=== PATIENT | male | born 1945 | race Caucasian/White ===

== ENCOUNTER 2023-06-15 17:15 | Inpatient (IN) ==
--- NOTE | 2023-06-15 18:00 | ED Triage Note ---
Date of Service June 15, 2023 Provider in Triage Author: Sabi Zhao History of Present Illness This patient was briefly evaluated while in triage. An abbreviated physical exam was performed. This patient is a 78-year-old Male who presents to the ED for evaluation of lumbar pain radiating into BLE. States surgical procedure for pilonidal cyst. Reports pain began shortly after surgery and has no hx of lumbar issues. Reports no saddle anesthesia, no loss of bowel or bladder. Physical Exam Initial orders for labs and / or imaging were placed and patient was placed in the waiting area until a bed is available. Please see further documentation for the full ED course.
[2023-06-15] MEDS: LIDOCAINE 5% 1 PATCH TD STA (18:11)
[2023-06-15] MEDS: KETOROLAC TROMETHAMINE 60 MG/2 ML VIAL IM STA (18:11)
[2023-06-15 18:51] LABS: Basophils # (auto) 0.03 K/uL (0.00-0.20); Basophils % (auto) 0.3 %; Eosinophils # (auto) 0.08 K/uL (0.00-0.50); Eosinophils % (auto) 0.9 %; Hematocrit (blood only) 35.4 % (42.0-52.0); Hemoglobin 11.2 g/dl (14.0-18.0); Immature Granulocytes # (auto) 0.05 K/uL (0.01-0.20); Immature Granulocytes % (auto) 0.5 %; Lymphocytes % (auto) 9.6 %; Mean Corpuscular Hemoglobin 28.4 pg (25.0-34.0); Mean Corpuscular Hgb Conc 31.6 g/dL (32.0-36.0); Mean Corpuscular Volume 89.6 fL (80.0-100.0); Mean Platelet Volume 8.7 fL (9.4-12.4); Monocytes # (auto) 0.91 K/uL (0.11-0.59); Monocytes % (auto) 9.7 %; Neutrophils # (auto) 7.39 K/uL (1.40-6.50); Platelet Count 250 K/uL (130-400); RDW Coefficient of Variation 16.1 % (11.5-14.5); RDW Standard Deviation 52.5 fL (36.4-46.3); Red Blood Count 3.95 M/uL (4.70-6.10); White Blood Count 9.36 K/ul (4.8-10.8)
[2023-06-15 19:05] LABS: Alanine Aminotransferase 9 U/L (7-52); Albumin Globulin Ratio 1.2 (0.9-2); Albumin Level 3.9 gm/dl (3.4-5.0); Alkaline Phosphatase 70 U/L (34-104); Anion Gap 7 (3-11); Aspartate Aminotransferase 21 U/L (13-39); BUN Creatinine Ratio 27.5 (10-20); Blood Urea Nitrogen 22 mg/dl (6-23); Calcium 9.4 mg/dl (8.6-10.3); Carbon Dioxide 29 mmol/L (21-32); Chloride 102 mmol/L (98-107); Est GFR (African American) 99.2 ml/min; Est GFR (Non-African American) 85.6 ml/min; Globulin 3.2 gm/dl (2.5-4.0); Glucose 96 mg/dl (70-99(Fasting)); Potassium 4.1 mmol/L (3.5-5.1); Sodium 138 mmol/L (136-145); Total Protein 7.1 gm/dl (6.0-8.3)
--- NOTE | 2023-06-15 19:07 | Emergency Department Note ---
History of Present Illness General Chief complaint: Back Injury/Pain Stated complaint: BACK PAIN Time Seen by Provider: 06/15/23 19:07 History of Present Illness Maximum Pain Intensity: 7 NAME: JUANITA SHELTON AGE: 78 SEX: M : 1945 ARRIVES VIA: Walk-In INFORMANT: Patient ED PROVIDER(S): DEBBY Epstein, Lucie Sewell MD The patient is a 78-year-old male who arrives to the emergency department for lumbar pain with radiation into his bilateral lower extremities. He reports in April he had a surgical procedure to remove a pilonidal cyst. He states since that time he has had significant pain and tenderness in the area. He reports he visited his surgeon to discuss the pain, and he assured him it was not due to the procedure. The patient denies any fevers, saddle anesthesia, loss of bowel or bladder, or fever. Home Medications Medication Instructions Recorded Confirmed Type ascorbic acid (vitamin C) 500 mg 500 mg PO QAM 03/03/23 06/15/23 History chewable tablet (Vitamin C) aspirin 81 mg tablet 81 mg PO QAM 03/03/23 06/15/23 History calcium phosphate 250 mg-vitamin 1 tab PO BID 03/03/23 06/15/23 History D3 10 mcg (400 unit) chewable tablet (Caltrate Gummy Bites) diclofenac sodium 75 mg 75 mg PO QAM 03/03/23 06/15/23 History tablet,delayed release ezetimibe 10 mg tablet (Zetia) 10 mg PO QAM 03/03/23 06/15/23 History metoprolol tartrate 37.5 mg tablet 37.5 mg PO BID 03/03/23 06/15/23 History mirabegron 50 mg tablet,extended 50 mg PO QAM 03/03/23 06/15/23 History release 24 hr (Myrbetriq) rosuvastatin 40 mg tablet 40 mg PO HS 03/03/23 06/15/23 History tamsulosin 0.4 mg capsule 0.4 mg PO QAM 03/03/23 06/15/23 History duloxetine 30 mg capsule,delayed 30 mg PO QAM 04/09/23 06/15/23 History release (Cymbalta) sodium chloride 0.65 % nasal spray 2 spray intranasal BID PRN 04/09/23 06/15/23 History aerosol (Saline Nasal) Congestion Allergies Allergy/AdvReac Type Severity Reaction Status Date / Time Penicillins Allergy Mild Rash Verified 06/15/23 22:14 Sulfa (Sulfonamide Allergy Mild Rash Verified 06/15/23 22:14 Antibiotics) clindamycin AdvReac Mild upset Verified 06/15/23 22:14 stomach Past Med/Surg History Medical History CAD (coronary artery disease) s/p CABG x2 (2021) Aortic stenosis Echo 01/2022: Mild aortic stenosis Arthritis History of prostate cancer 2017, radiation with seeds implants Low iron Pulmonary embolism 2011- fell hiking in [place], blood clot developed postop surgery to repair fracture, blood thinners discontinued (was on for short period of time) Hypertension Hyperlipidemia History of COVID-19 Dx 03/03/23 ([place])- cough > resolved Sleep apnea No device Surgical History History of anesthesia reaction slow to wake up History of excision of pilonidal cyst History of carpal tunnel release R/L History of total knee replacement Right History of surgery on lower extremity Right fib fracture repair (+ hardware) H/O prostate biopsy History of colonoscopy History of cataract surgery R/L History of coronary artery bypass graft CABG x2 (2021) Family History Other No family history of adverse response to anesthesia Social History Smoking Status: Former smoker Tobacco Type: Cigarettes Smoking End Date: 1972; Second Hand Exposure: Yes (both parents); Do You Dip or Chew Tobacco: No; Hx Alcohol Use: Yes Alcohol type: wine Hx Substance Use: No Preferred Language: Citizen Of [place] Communication Ability: Effective Gear Design 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 Required: No Beliefs That Will Affect Care: None Current Living Situation: Spouse Feels Safe at Home: Yes Safety Concerns: Feels Safe At This Time Assistive Devices: Crutches, Glasses and Walker Assistive Devices Comment: reading glasses Physical Exam Vital Signs Vital Signs - 24 hr 06/15/23 17:58 Temperature 36.9 C Temperature Source Temporal Artery Scan Pulse Rate 64 Respiratory Rate 18 Respiratory Effort / Characteristics Non-Labored Spontaneous Respiratory Depth Normal Respiratory Pattern Regular Blood Pressure 113/71 Blood Pressure Mean 85 Blood Pressure Position Sitting Pulse Oximetry 98 Oxygen Delivery Method Room Air Sepsis Recent Fever Within 48 Hours No Sepsis New/Unexplained Change in Mental Status N/A Sepsis Action Taken by Nursing No Action Required VITALS: Vitals are noted on the nurse's note and reviewed by myself. Vital signs stable. GENERAL: 78-year-old male, in mild distress, nondiaphoretic, well-developed well-nourished. SKIN: The skin was without rashes, erythema, edema, or bruising. There is a 3cm x 3cm decubitus ulceration from a pilonidal cyst removal with surrounding cellulitis. Severe TTP. HEAD: Normocephalic atraumatic. HEART: Regular rate and rhythm without murmurs gallops or rubs. LUNGS: Clear to auscultation bilaterally without wheezes, rales or rhonchi. No retractions or accessory muscle use. MUSCULOSKELETAL: Tenderness to palpation lumbar spinous process. Pain with flexion and extension, and rotation. No numbness or tingling in his extremities. NEURO: Patient was alert and oriented to person place and time. No focal neurological deficits. Course Administered Medications Acetaminophen (Acetaminophen 325 Mg Tab) 650 mg PO Q4H PRN PRN Reason: pain/fever Stop: 07/16/23 01:47 Last Admin: 06/16/23 02:51 Dose: 650 mg Documented By: GHISLAINE Ascorbic Acid (Ascorbic Acid 500 Mg Tab) 500 mg PO [facility] Stop: 07/16/23 08:59 Last Admin: 06/16/23 09:39 Dose: 500 mg Documented By: YURI Aspirin (Aspirin 81 Mg Ectab) 81 mg PO [facility] Stop: 07/16/23 08:59 Last Admin: 06/16/23 09:39 Dose: 81 mg Documented By: YURI Calcium/Vitamin D (Calcium 600mg + Vit D 400 Iu Tab) 1 tab PO BID [facility] Stop: 07/16/23 08:59 Last Admin: 06/16/23 20:41 Dose: 1 tab Documented By: Admin: 06/16/23 09:40 Dose: 1 tab Documented By: YURI Duloxetine HCl (Duloxetine Hcl 30 Mg Cap) 30 mg PO [facility] Stop: 07/16/23 08:59 Last Admin: 06/16/23 09:40 Dose: 30 mg Documented By: YURI Ezetimibe (Ezetimibe 10 Mg Tab) 10 mg PO HS [facility] Stop: 07/16/23 20:59 Last Admin: 06/16/23 20:39 Dose: 10 mg Documented By: PLF Enoxaparin Sodium (Enoxaparin Inj 40 Mg/0.4 Ml Syr) 40 mg SQ Q24H [facility]ILDA Stop: 07/16/23 08:59 Last Admin: 06/16/23 09:48 Dose: 40 mg Documented By: MAP Hydromorphone HCl (Hydromorphone Inj 0.5 Mg/0.5 Ml Syr) 0.5 mg IV Q4H PRN PRN Reason: Pain Stop: 06/30/23 04:51 Last Admin: 06/16/23 20:09 Dose: 0.5 mg Documented By: Admin: 06/16/23 11:19 Dose: 0.5 mg Documented By: Admin: 06/16/23 05:04 Dose: 0.5 mg Documented By: PLF Metoprolol Tartrate (Metoprolol Tartrate 25 Mg Tab) 37.5 mg PO BID [facility] Stop: 07/16/23 08:59 Last Admin: 06/16/23 20:40 Dose: 37.5 mg Documented By: Admin: 06/16/23 09:40 Dose: 37.5 mg Documented By: YURI Rosuvastatin Calcium (Rosuvastatin Calcium 20 Mg Tab) 40 mg PO [facility] Stop: 07/16/23 20:59 Last Admin: 06/16/23 20:40 Dose: 40 mg Documented By: PLF Tamsulosin HCl (Tamsulosin Hcl 0.4 Mg Cap) 0.4 mg PO [facility] Stop: 07/16/23 20:59 Last Admin: 06/16/23 20:40 Dose: 0.4 mg Documented By: PLF Vibegron (Vibegron 75 Mg Tab) 75 mg PO DAILY [facility] Stop: 07/16/23 08:59 Last Admin: 06/16/23 09:41 Dose: 75 mg Documented By: YURI Discontinued Medications Ezetimibe (Ezetimibe 10 Mg Tab) 10 mg PO QAM [facility] Stop: 07/16/23 08:59 Last Admin: 06/16/23 10:55 Dose: Not Given Documented By: MAP Gadobutrol (Gadobutrol 65ml Vial) 9.5 ml IV ONCE ONE Stop: 06/16/23 13:40 Last Admin: 06/16/23 13:40 Dose: 9.5 ml Documented By: ENIO Ceftriaxone Sodium (Rocephin) 2,000 mg in 50 mls @ 100 mls/hr IV NOW STA Stop: 06/15/23 22:21 Last Infusion: 06/15/23 23:13 Dose: Infused Documented By: Admin: 06/15/23 22:39 Dose: 100 mls/hr Documented By: KURTIS Vancomycin HCl 2,750 mg/ (Sodium Chloride) 555 mls @ 200 mls/hr IV NOW ONE Stop: 06/16/23 00:24 Last Infusion: 06/16/23 03:23 Dose: Infused Documented By: Admin: 06/15/23 22:46 Dose: 200 mls/hr Documented By: KURTIS Ertapenem 1,000 mg/ Syringe 10 mls @ 2 mls/min IV Q24H HILDA Stop: 06/23/23 02:59 Last Admin: 06/16/23 04:51 Dose: 2 mls/min Documented By: GHISLAINE Sodium Chloride (Nss) 1,000 mls @ 75 mls/hr IV .[id number] HILDA Stop: 06/16/23 15:07 Last Infusion: 06/16/23 15:53 Dose: Infused Documented By: Admin: 06/16/23 04:52 Dose: 75 mls/hr Documented By: GHISLAINE Ioversol (Optiray 320 500ml) 80 ml IV ONCE ONE Stop: 06/15/23 19:32 Last Admin: 06/15/23 19:32 Dose: 80 ml Documented By: AVI Ioversol (Optiray 320 500ml) 82 ml IV ONCE ONE Stop: 06/15/23 21:13 Last Admin: 06/15/23 21:12 Dose: 82 ml Documented By: AVI Ketorolac Tromethamine (Ketorolac Tromethamine 60 Mg/2 Ml Vial) 30 mg IM NOW STA Stop: 06/15/23 18:03 Last Admin: 06/15/23 18:11 Dose: 30 mg Documented By: KAILA Lidocaine (Lidocaine 5% 1 Patch) 1 patch TD NOW STA Stop: 06/15/23 18:03 Last Admin: 06/15/23 18:11 Dose: 1 patch Documented By: KAILA Tamsulosin HCl (Tamsulosin Hcl 0.4 Mg Cap) [facility] Stop: 07/16/23 08:59 Last Admin: 06/16/23 10:55 Dose: Not Given Documented By: MAP Medical Decision Making Differential Diagnosis Musculoskeletal, disc herniation, fracture, metastatic disease, cord compression, discitis, sciatica, cauda equina, infection, aortic disease, renal colic, gastrointestinal, as well as other pathologies. Medical Records Attestation: I reviewed the patient's medical records. Home Medications Current Medication List: was personally reviewed by me Laboratory Data Attestation: I reviewed the patient's lab results. no leukocytosis, hemoglobin 11.2, hematocrit 35.4, no electrolyte abnormalities, 06/16/23 05:27 06/16/23 05:27 Lab Results 06/15/23 06/15/23 Range/Units 18:27 22:37 WBC 9.36 (4.8-10.8) K/ul RBC 3.95 L (4.70-6.10) M/uL Hgb 11.2 L (14.0-18.0) g/dl Hct 35.4 L (42.0-52.0) % MCV 89.6 (80.0-100.0) fL MCH 28.4 (25.0-34.0) pg MCHC 31.6 L (32.0-36.0) g/dL RDW Std Deviation 52.5 H (36.4-46.3) fL RDW Coeff of [place] 16.1 H (11.5-14.5) % Plt Count 250 (130-400) K/uL MPV 8.7 L (9.4-12.4) fL Immature Gran % (Auto) 0.5 % Neut % (Auto) 79.0 % Lymph % (Auto) 9.6 % [place] % (Auto) 9.7 % Eos % (Auto) 0.9 % Baso % (Auto) 0.3 % Neut # (Auto) 7.39 H (1.40-6.50) K/uL Lymph # (Auto) 0.90 L (1.20-3.40) K/uL [place] # (Auto) 0.91 H (0.11-0.59) K/uL Eos # (Auto) 0.08 (0.00-0.50) K/uL Baso # (Auto) 0.03 (0.00-0.20) K/uL Immature Gran # (Auto) 0.05 (0.01-0.20) K/uL Sodium 138 (136-145) mmol/L Potassium 4.1 (3.5-5.1) mmol/L Chloride 102 (98-107) mmol/L Carbon Dioxide 29 (21-32) mmol/L Anion Gap 7 (3-11) BUN 22 (6-23) mg/dl Creatinine 0.80 (0.6-1.4) mg/dl Est Cr Clr Drug Dosing Not Reportable Est GFR ( Amer) 99.2 ml/min Est GFR (Non-Af Amer) 85.6 ml/min BUN/Creatinine Ratio 27.5 H (10-20) Glucose 96 (70-99(Fasting)) mg/dl Lactate 1.0 (0.4-2.0) mmol/L Calcium 9.4 (8.6-10.3) mg/dl Total Bilirubin 1.0 (0.2-1.0) mg/dl AST 21 (13-39) U/L ALT 9 (7-52) U/L Alkaline Phosphatase 70 (34-104) U/L Total Protein 7.1 (6.0-8.3) gm/dl Albumin 3.9 (3.4-5.0) gm/dl Globulin 3.2 (2.5-4.0) gm/dl Albumin/Globulin Ratio 1.2 (0.9-2) Imaging Data Radiologist's Impression: Lumbar Spine CT 06/15/23 18:06 Exam(s): CT L SPINE With Contrast IV Amt: 80 ml optiray 320 EXAM: CT Lumbar Spine With Intravenous Contrast CLINICAL HISTORY: Reason for exam: TTP spinous process, radiation of pain. TECHNIQUE: Axial computed tomography images of the lumbar spine with intravenous contrast. Automated exposure control was utilized for the study. A dose lowering technique was utilized adhering to the principles of ALARA. CONTRAST: Patient received 80 ml optiray 320 of IV contrast COMPARISON: None. FINDINGS: Vertebrae: No lumbar spine fracture. Discs/spinal canal/neural foramina: Degenerative change in the sacroiliac joints. Left central/subarticular calcified disc protrusion at L1-L2 with caudal migration. Disc bulges with endplate osteophytes and facet arthrosis throughout the lumbar spine. No high-grade spinal canal stenosis. There are varying degrees of foraminal narrowing throughout the lumbar spine. Soft tissues: Nonspecific dorsal subcutaneous fat stranding overlying the visualized sacrum. Vasculature: Atherosclerotic calcifications in the abdominal aorta and branches. Stomach and bowel: Colonic diverticulosis. IMPRESSION: 1. No acute fracture or traumatic malalignment of the lumbar spine. 2. Nonspecific dorsal subcutaneous fat stranding overlying the visualized sacrum. This could potentially be seen in with a sacral fracture or contusion, incompletely evaluated on this examination. Consider evaluation with dedicated CT of the pelvis as clinically warranted. 3. Moderate to severe degenerative change of the lumbar spine. Consider evaluation with MRI as clinically warranted. Electronically signed by: Jayson Landeros MD 06/15/23 20:18 PM Blood Pressure Blood Pressure Findings: Normal blood pressure MDM Narrative The patient is a 78-year-old male who presents today with his as secondary historian for the above stated complaint. Initial breif assessment was performed in triage. Initial orders were placed for saline lock, cbc, cmp, and CT of lumbar spine w/IV contrast. Lab values proved to be unremarkable. The patient was eventually placed in D4B where a formal evaluation was performed. Upon further examination, the patient has a 3cm x 3cm decubitus ulcer with surrounding cellulitis from a surgical removal of a pilonidal cyst. The patient expresses severe pain when the wound edges are palpated. CT imaging of the lumbar spine showed fat stranding over the sacrum which could indicate a sacral fracture or deeper infection. CT of the pelvis with IV contrast was recommended and performed. This imaging showe associated erosion of the sacrum concerning for osteomyelitis. Stat Rad contacted me for a critical read, we discussed the need for an MRI of the pelvis to show the extent of the infection. At this time, I contacted case mangement to discuss patient admission. Dr. Camacho of [facility] agreed to take the patient and provide a further workup as well as IV antibiotics. I placed initial orders for ceftriaxone and vancomycin. At this time, Dr. Camacho took over care of the patient. The patient's case was discussed with Dr. Sewell, who agreed with my evaluation and treatment plan. Impression & Plan Sacral osteomyelitis Discharge Plan Visit Data Chief Complaint: Back Injury/Pain Stated Complaint: BACK PAIN ED Provider: Lucie Sewell ED Midlevel Provider: Sabi Zhao Discharge Problem: Sacral osteomyelitis Patient Disposition: Admitted As Inpatient Discharge Instructions Interventions: ED Discharge Assessment Last Done: 06/16/23 00:54
[2023-06-15] MEDS: OPTIRAY 320 500ml IV ONE ×2 (19:32→21:12)
--- NOTE | 2023-06-15 20:20 | CT Scan Report ---
Exam(s): CT L SPINE With Contrast IV Amt: 80 ml optiray 320 EXAM: CT Lumbar Spine With Intravenous Contrast CLINICAL HISTORY: Reason for exam: TTP spinous process, radiation of pain. TECHNIQUE: Axial computed tomography images of the lumbar spine with intravenous contrast. Automated exposure control was utilized for the study. A dose lowering technique was utilized adhering to the principles of ALARA. CONTRAST: Patient received 80 ml optiray 320 of IV contrast COMPARISON: None. FINDINGS: Vertebrae: No lumbar spine fracture. Discs/spinal canal/neural foramina: Degenerative change in the sacroiliac joints. Left central/subarticular calcified disc protrusion at L1-L2 with caudal migration. Disc bulges with endplate osteophytes and facet arthrosis throughout the lumbar spine. No high-grade spinal canal stenosis. There are varying degrees of foraminal narrowing throughout the lumbar spine. Soft tissues: Nonspecific dorsal subcutaneous fat stranding overlying the visualized sacrum. Vasculature: Atherosclerotic calcifications in the abdominal aorta and branches. Stomach and bowel: Colonic diverticulosis. IMPRESSION: 1. No acute fracture or traumatic malalignment of the lumbar spine. 2. Nonspecific dorsal subcutaneous fat stranding overlying the visualized sacrum. This could potentially be seen in with a sacral fracture or contusion, incompletely evaluated on this examination. Consider evaluation with dedicated CT of the pelvis as clinically warranted. 3. Moderate to severe degenerative change of the lumbar spine. Consider evaluation with MRI as clinically warranted. Electronically signed by: Jayson Landeros MD 06/15/23 20:18 PM
--- NOTE | 2023-06-15 21:37 | CT Scan Report ---
Exam(s): CT PELVIS With Contrast IV Amt: 82 ml optiray 320 EXAM: CT Pelvis With Intravenous Contrast CLINICAL HISTORY: Reason for exam: r/o fracture. TECHNIQUE: Axial computed tomography images of the pelvis with intravenous contrast. CTDI is 27.51 mGy and DLP is 730.15 mGy-cm. Automated exposure control was utilized for the study. A dose lowering technique was utilized adhering to the principles of ALARA. CONTRAST: Patient received 82 ml optiray 320 of IV contrast COMPARISON: CT lumbar spine 06/15/2023. FINDINGS: Bowel: Colonic diverticulosis. No obstruction. No mucosal thickening. Appendix: No findings to suggest acute appendicitis. Intraperitoneal space: Unremarkable. No free air. No significant fluid collection. Bladder: Unremarkable. No mass. Reproductive: Fiducials in the prostate gland. Bones/joints: See below. Soft tissues: There appears to be a sacral decubitus ulcer or potentially pilonidal cyst with associated subcutaneous fat stranding and skin thickening. There also appears to be erosion of the sacrum. Vasculature: Atherosclerotic calcification the abdominal aorta and branches. No lower abdominal aortic aneurysm. Lymph nodes: Unremarkable. No enlarged lymph nodes. IMPRESSION: 1. Findings may represent a sacral decubitus ulcer or pilonidal cyst with associated subcutaneous fat stranding and skin thickening concerning for cellulitis. There also appears to be associated erosion of the sacrum concerning for osteomyelitis. Recommend direct visualization. Consider evaluation with dedicated MRI of the sacrum as clinically warranted. 2. Colonic diverticulosis. Communications: Call Doctor Osteomyelitis (if unsuspected) Call Doctor Above results Electronically signed by: Jayson Landeros MD 06/15/23 21:35 PM
[2023-06-15] MEDS ORDERED: VANCOMYCIN CONSULT ACTIVE PRN (21:55)
[2023-06-15] MEDS: cefTRIAXone SODIUM 2,000 MG/50 ML BAG IV STA (22:39)
[2023-06-15] MEDS: VANCOMYCIN HCL 2,750 MG in SODIUM CHLORIDE 0.9% 500 ML IV ONE (22:46)
--- NOTE | 2023-06-15 23:36 | History & Physical Report ---
Date of Service June 15, 2023 Assessment & Plan (1) Sacral osteomyelitis: Plan: 78-year-old male with past medical history significant for prediabetes, hyperlipidemia, obstructive sleep apnea not using CPAP, mild aortic stenosis, CAD s/p CABG, history of prostate cancer, history of pulmonary embolism who presents with severe back pain and CAT scan showing possible sacral osteomyelitis. Patient had pilonidal cyst surgery on April 21, 2023. Started having low back pain end of April and radiating down to both legs constant pain moderate to severe in severity. He is having difficulty ambulating because of pain. Saw surgery in follow-up and was thought his current problem is not from the procedure. He is constipated. No bowel incontinence. Since his prostate surgery has some bladder issues controlled with medications. But lately is having more urgencies of the urine. Sensations intact. No fevers. No abdominal pain. No chest pain or shortness of breath. Has mild cough. Occasional runny nose. No sore throat. Vision is okay. Ap petite is okay. Hemodynamics are stable. Sacral osteomyelitis Sacral cellulitis Had pilonidal surgery on April 21, 2023 Severe back pain since end of April radiating to both legs. Difficulty ambulating. Open wounds in the sacral region CT scan showing sacral decubitus ulcers possible cellulitis and possible sacrum osteomyelitis Will do MRI scan of the sacrum and lumbar spine Pain control IV Vanco and Invanz ID consult and Ortho consult Close monitor Prediabetes Will follow HbA1c levels Obstructive sleep apnea Not using CPAP CAD s/p CABG On beta-emily, Zetia, aspirin and statin Hyperlipidemia On statin History of prostate cancer S/p brachytherapy and LHRH therapy On Flomax and Myrbetriq Follows with urology History of mild aortic stenosis DVT prophylaxis Lovenox Disposition Medical floor Full code History of Present Illness Chief Complaint: Back pain, possible sacral osteomyelitis Primary Care Provider: Renzo Camacho MD 78-year-old male with past medical history significant for prediabetes, hy perlipidemia, obstructive sleep apnea not using CPAP, mild aortic stenosis, CAD s/p CABG, history of prostate cancer, history of pulmonary embolism who presents with severe back pain and CAT scan showing possible sacral osteomyelitis. Patient had pilonidal cyst surgery on April 21, 2023. Started having low back pain end of April and radiating down to both legs constant pain moderate to severe in severity. He is having difficulty ambulating because of pain. Saw surgery in follow-up and was thought his current problem is not from the procedure. He is constipated. No bowel incontinence. Since his prostate surgery has some bladder issues controlled with medications. But lately is having more urgencies of the urine. Sensations intact. No fevers. No abdominal pain. No chest pain or shortness of breath. Has mild cough. Occasional runny nose. No sore throat. Vision is okay. Appetite is okay. Hemodynamics are stable. Past medical history. As mentioned above Past surgical history. Right ankle arthroscopy. Knee arthroscopy. CABG. Social history. . Quit smoking 1974. Alcohol glass of wine about once a month. No drug use. Family history. Father had alcoholism. Mother had heart failure. Sister had diabetes. Sister had heart failure. Maternal grandmother had diabetes. Allergies Allergy/AdvReac Type Severity Reaction Status Date / Time Penicillins Allergy Mild Rash Verified 06/15/23 22:14 Sulfa (Sulfonamide Allergy Mild Rash Verified 06/15/23 22:14 Antibiotics) clindamycin AdvReac Mild upset Verified 06/15/23 22:14 stomach Home Medications Medication Instructions Recorded Confirmed Type ascorbic acid (vitamin C) 500 mg 500 mg PO QAM 03/03/23 06/15/23 History chewable tablet (Vitamin C) aspirin 81 mg tablet 81 mg PO QAM 03/03/23 06/15/23 History calcium phosphate 250 mg-vitamin 1 tab PO BID 03/03/23 06/15/23 History D3 10 mcg (400 unit) chewable tablet (Caltrate Gummy Bites) diclofenac sodium 75 mg 75 mg PO QAM 03/03/23 06/15/23 History tablet,delayed release ezetimibe 10 mg tablet (Zetia) 10 mg PO QAM 03/03/23 06/15/23 History metoprolol tartrate 37.5 mg tablet 37.5 mg PO BID 03/03/23 06/15/23 History mirabegron 50 mg tablet,extended 50 mg PO QAM 03/03/23 06/15/23 History release 24 hr (Myrbetriq) rosuvastatin 40 mg tablet 40 mg PO HS 03/03/23 06/15/23 History tamsulosin 0.4 mg capsule 0.4 mg PO QAM 03/03/23 06/15/23 History duloxetine 30 mg capsule,delayed 30 mg PO QAM 04/09/23 06/15/23 History release (Cymbalta) sodium chloride 0.65 % nasal spray 2 spray intranasal BID PRN 04/09/23 06/15/23 History aerosol (Saline Nasal) Congestion Past Med/Surg History Medical History CAD (coronary artery disease) s/p CABG x2 (2021) Aortic stenosis Echo 01/2022: Mild aortic stenosis Arthritis History of prostate cancer 2017, radiation with seeds implants Low iron Pulmonary embolism 2011- fell hiking in [place], blood clot developed postop surgery to repair fracture, blood thinners discontinued (was on for short period of time) Hypertension Hyperlipidemia History of COVID-19 Dx 03/03/23 ([place])- cough > resolved Sleep apnea No device Surgical History History of anesthesia reaction slow to wake up History of excision of pilonidal cyst History of carpal tunnel release R/L History of total knee replacement Right History of surgery on lower extremity Right fib fracture repair (+ hardware) H/O prostate biopsy History of colonoscopy History of cataract surgery R/L History of coronary artery bypass graft CABG x2 (2021) Family History Other No family history of adverse response to anesthesia Social History Smoking Status: Former smoker Tobacco Type: Cigarettes Smoking End Date: 1972; Second Hand Exposure: Yes (both parents); Do You Dip or Chew Tobacco: No; Hx Alcohol Use: Yes Alcohol type: wine Hx Substance Use: No Preferred Language: Martiniquais Communication Ability: Effective Industrial Arts Teacher Required: No Beliefs That Will Affect Care: None Current Living Situation: Spouse Feels Safe at Home: Yes Safety Concerns: Feels Safe At This Time Assistive Devices: Other Assistive Devices Comment: reading glasses Review of Systems Review of Systems: All systems reviewed & are unremarkable except as noted in HPI & below Physical Exam Physical Exam: General-Not in distress Head- atraumatic Eyes- PERRL. ENT- oropharynx clear Neck- supple, no JVD. Lungs- clear to auscultation no wheezing or crackles. Heart- regular rhythm; esm in aortic area., no gallop. Abdomen- normal bowel sounds, soft, nontender, no distension. Extremities- no pretibial edema, no erythema seen. Neuro- alert, oriented x 3; PERRL, no facial palsy; no dysarthria; moves extremities. Skin- sacral open wound with mild drainage seen Results & Data Results & Data Vital Signs (Past 12 Hours) Vital Signs Temp Pulse Pulse Resp BP BP Pulse Ox 06/15/23 21:20 85 18 142/59 H 94 06/15/23 17:58 36.9 C 64 18 113/71 98 O2 Del Method 06/15/23 21:20 Room Air 06/15/23 17:58 Room Air Diagnostic Findings Laboratory Results WBC 9.36 K/ul (4.8-10.8) 06/15/23 18: RBC 3.95 M/uL (4.70-6.10) L 06/15/23 18: Hgb 11.2 g/dl (14.0-18.0) L 06/15/23 18: Hct 35.4 % (42.0-52.0) L 06/15/23 18: MCV 89.6 fL (80.0-100.0) 06/15/23 18: MCH 28.4 pg (25.0-34.0) 06/15/23 18: MCHC 31.6 g/dL (32.0-36.0) L 06/15/23 18: RDW Std Deviation 52.5 fL (36.4-46.3) H 06/15/23 18: RDW Coeff of [place] 16.1 % (11.5-14.5) H 06/15/23 18: Plt Count 250 K/uL (130-400) 06/15/23 18: MPV 8.7 fL (9.4-12.4) L 06/15/23 18: Immature Gran % (Auto) 0.5 % 06/15/23 18: Neut % (Auto) 79.0 % 06/15/23 18: Lymph % (Auto) 9.6 % 06/15/23 18: [place] % (Auto) 9.7 % 06/15/23 18:27 Eos % (Auto) 0.9 % 06/15/23 18: Baso % (Auto) 0.3 % 06/15/23 18: Neut # (Auto) 7.39 K/uL (1.40-6.50) H 06/15/23 18: Lymph # (Auto) 0.90 K/uL (1.20-3.40) L 06/15/23 18: [place] # (Auto) 0.91 K/uL (0.11-0.59) H 06/15/23 18: Eos # (Auto) 0.08 K/uL (0.00-0.50) 06/15/23 18: Baso # (Auto) 0.03 K/uL (0.00-0.20) 06/15/23 18: Immature Gran # (Auto) 0.05 K/uL (0.01-0.20) 06/15/23 18: Sodium 138 mmol/L (136-145) 06/15/23 18: Potassium 4.1 mmol/L (3.5-5.1) 06/15/23 18: Chloride 102 mmol/L (98-107) 06/15/23 18: Carbon Dioxide 29 mmol/L (21-32) 06/15/23 18: Anion Gap 7 (3-11) 06/15/23 18: BUN 22 mg/dl (6-23) 06/15/23 18: Creatinine 0.80 mg/dl (0.6-1.4) 06/15/23 18: Est Cr Clr Drug Dosing Not Reportable 06/15/23 18: Est GFR ( Amer) 99.2 ml/min 06/15/23 18: Est GFR (Non-Af Amer) 85.6 ml/min 06/15/23 18: BUN/Creatinine Ratio 27.5 (10-20) H 06/15/23 18: Glucose 96 mg/dl (70-99(Fasting)) 06/15/23 18: Lactate 1.0 mmol/L (0.4-2.0) 06/15/23 22:37 Calcium 9.4 mg/dl (8.6-10.3) 06/15/23 18: Total Bilirubin 1.0 mg/dl (0.2-1.0) 06/15/23 18: AST 21 U/L (13-39) 06/15/23 18: ALT 9 U/L (7-52) 06/15/23 18: Alkaline Phosphatase 70 U/L (34-104) 06/15/23 18: Total Protein 7.1 gm/dl (6.0-8.3) 06/15/23 18: Albumin 3.9 gm/dl (3.4-5.0) 06/15/23 18: Globulin 3.2 gm/dl (2.5-4.0) 06/15/23 18: Albumin/Globulin Ratio 1.2 (0.9-2) 06/15/23 18: Impressions Lumbar Spine CT 06/15/23 18:06 Exam(s): CT L SPINE With Contrast IV Amt: 80 ml optiray 320 EXAM: CT Lumbar Spine With Intravenous Contrast CLINICAL HISTORY: Reason for exam: TTP spinous process, radiation of pain. TECHNIQUE: Axial computed tomography images of the lumbar spine with intravenous contrast. Automated exposure control was utilized for the study. A dose lowering technique was utilized adhering to the principles of ALARA. CONTRAST: Patient received 80 ml optiray 320 of IV contrast COMPARISON: None. FINDINGS: Vertebrae: No lumbar spine fracture. Discs/spinal canal/neural foramina: Degenerative change in the sacroiliac joints. Left central/subarticular calcified disc protrusion at L1-L2 with caudal migration. Disc bulges with endplate osteophytes and facet arthrosis throughout the lumbar spine. No high-grade spinal canal stenosis. There are varying degrees of foraminal narrowing throughout the lumbar spine. Soft tissues: Nonspecific dorsal subcutaneous fat stranding overlying the visualized sacrum. Vasculature: Atherosclerotic calcifications in the abdominal aorta and branches. Stomach and bowel: Colonic diverticulosis. IMPRESSION: 1. No acute fracture or traumatic malalignment of the lumbar spine. 2. Nonspecific dorsal subcutaneous fat stranding overlying the visualized sacrum. This could potentially be seen in with a sacral fracture or contusion, incompletely evaluated on this examination. Consider evaluation with dedicated CT of the pelvis as clinically warranted. 3. Moderate to severe degenerative change of the lumbar spine. Consider evaluation with MRI as clinically warranted. Electronically signed by: Jayson Landeros MD 06/15/23 20:[address] 06/15/23 20:46 CR Exam(s): CT PELVIS With Contrast IV Amt: 82 ml optiray 320 EXAM: CT Pelvis With Intravenous Contrast CLINICAL HISTORY: Reason for exam: r/o fracture. TECHNIQUE: Axial computed tomography images of the pelvis with intravenous contrast. CTDI is 27.51 mGy and DLP is 730.15 mGy-cm. Automated exposure control was utilized for the study. A dose lowering technique was utilized adhering to the principles of ALARA. CONTRAST: Patient received 82 ml optiray 320 of IV contrast COMPARISON: CT lumbar spine 06/15/2023. FINDINGS: Bowel: Colonic diverticulosis. No obstruction. No mucosal thickening. Appendix: No findings to suggest acute appendicitis. Intraperitoneal space: Unremarkable. No free air. No significant fluid collection. Bladder: Unremarkable. No mass. Reproductive: Fiducials in the prostate gland. Bones/joints: See below. Soft tissues: There appears to be a sacral decubitus ulcer or potentially pilonidal cyst with associated subcutaneous fat stranding and skin thickening. There also appears to be erosion of the sacrum. Vasculature: Atherosclerotic calcification the abdominal aorta and branches. No lower abdominal aortic aneurysm. Lymph nodes: Unremarkable. No enlarged lymph nodes. IMPRESSION: 1. Findings may represent a sacral decubitus ulcer or pilonidal cyst with associated subcutaneous fat stranding and skin thickening concerning for cellulitis. There also appears to be associated erosion of the sacrum concerning for osteomyelitis. Recommend direct visualization. Consider evaluation with dedicated MRI of the sacrum as clinically warranted. 2. Colonic diverticulosis. Communications: Call Doctor Osteomyelitis (if unsuspected) Call Doctor Above results Electronically signed by: Jayson Landeros MD 06/15/23 21:35 PM Code Status & VTE Plan VTE Prophylaxis Plan VTE Prophylaxis will be ordered: Yes
[2023-06-16] MEDS ORDERED: SODIUM CHLORIDE 0.65% NA SOLN 45 ML (OCEAN) PRN (01:48)
[2023-06-16] MEDS: ACETAMINOPHEN 325 MG TAB PO PRN (02:51)
--- OUTSIDE RECORDS SUMMARY | 2023-06-16 04:24 | External Medical Summary | Summary of Care ---
Author Name Unknown Organization [facility] Address [address] [place] [address] Phone [phone] Care Team Providers Care Air Battle Manager Name Role Phone Renzo Camacho MD Primary Care Provider + Reason for Visit * Reason Onset Date Comments Med Request 06/01/2023 Encounter Details Date Type Department Care Team (Late st Contact Info) Description 06/01/2023 Telephone General Internal Medicine [facility] [address] [place] [address] Renzo Camacho MD [address] [place] [address] Med Request Allergies Active Allergy Reactions Criticality Noted Date Comments Clindamycin Nausea/vomiting Low 10/21/2018 STOMACH BURNING AND ESOPHAGUS BURNING Tablets only. Stomach/esophageal burning Penicillins Hives Medium 11/22/2015 Pt developed hives, happened when he was 14 yrs Happened when he was 14 yrs Sulfamethoxazole-Trimeth oprim Hives Medium 12/29/2018 Pt developed hives, this happened when he was 14 years old This happened when he was 14 years old documented as of this encounter (statuses as of 06/01/2023) Medications Medication Sig Dispensed Refills Start Date End Date Status Aspirin 81 MG Oral Tablet Chewable Take 1 Tablet by mouth in the morning. 0 02/09/2022 Active Metoprolol Tartrate 37.5 MG Oral Tablet Take 37.5 mg by mouth in the morning and 37.5 mg before bedtime. 0 Active Diclofenac Sodium 75 MG Oral Tablet Delayed Release (Voltaren) Take 1 Tablet by mouth in the morning and 1 Tablet before bedtime. 90 Tablet 3 04/07/2023 Active Additional Information Patient taking differently:75 mg OralDaily(AM), Reported on 04/16/2023 Ezetimibe 10 MG Oral Tablet (Zetia)Indications: Mixed hyperlipidemia Take 1 Tablet by mouth in the morning. 90 Tablet 3 04/07/2023 Active Myrbetriq 50 MG Oral Tablet Extended Release 24 Hour (Mirabegron ER)Indications:Hist ory of prostate cancer Take 1 Tablet by mouth in the morning. 90 Tablet 3 04/07/2023 Active DULoxetine HCl 30 MG Oral Capsule Delayed Release Particles (Cymbalta)Indicatio ns:Polyarthralgia Take 1 Capsule by mouth in the morning. Do not cut, crush or chew. 30 Capsule 5 04/07/2023 Active Saline Nasal [place] 0.65 % Nasal Solution ([place] Nasal [place]) Administer 2 Sprays into each nostril as needed for Congestion. for nasal dryness or congestion 0 04/07/2023 Active Cephalexin 500 MG Oral Capsule (Keflex) Take 1 Capsule by mouth every 6 hours. 28 Capsule 0 04/29/2023 Active oxyCODONE-Acetamino phen 5-325 MG Oral Tablet (Percocet) Take 1 Tablet by mouth every 4 hours as needed for Pain, Moderate. 20 Tablet 0 04/29/2023 Active Rosuvastatin Calcium 40 MG Oral Tablet (Crestor) Take 1 Tablet by mouth at bedtime. 90 Tablet 3 05/06/2023 Active Tamsulosin HCl 0.4 MG Oral Capsule (Flomax) Take 1 Capsule by mouth in the morning. 90 Capsule 3 06/01/2023 Active Tamsulosin HCl 0.4 MG Oral Capsule (Flomax) Take 1 Capsule by mouth in the morning. 0 4 Discontinu ed(Refill) documented as of this encounter (statuses as of 06/01/2023) Active Problems Problem Noted Date Diagnosed Date Prediabetes 04/07/2023 Mild aortic stenosis 04/07/2023 Overview: Last echo 2021 Coronary artery disease invo lving [place] coronary artery of [place] heart without angina pectoris 04/07/2023 S/P CABG (coronary artery bypass graft) 04/07/20 23 History of prostate cancer 04/07/2023 Mixed hyperlipidemia 04/07/2023 OMID (obstructive sleep apnea) 04/07/2023 History of pulmonary embolism 04/07/2023 Overview: S/p surgery 2012 Post-nasal drip 04/07/2023 documented as of this encounter (statuses as of 06/01/2023) Resolved Problems Problem Noted Date Diagnosed Date Resolved Date HTN, goal below 130/80 04/07/202304/07 documented as of this encounter (statuses as of 06/01/2023) Immunizations Name Administration Dates Next Due COVID-19 mRNA, LNP-s, No Pre serve, 2-Dose Series (Moderna) 08/13/2021,07/30/2020,06/29/2020 COVID-19, mRNA, LNP-s, PF, B ooster, 100mcg/0.5mg (Moderna) 03/05/2021 Pneumococcal Conjugate Vacc, 13 Valent (Prevnar) 09/25/2014 Pneumococcal Polysaccharide PPV23 (Pneumovax) 04/07/2016 Season Influenza, Quad, PF, Adjuvanted, 65+ Yrs, IM (FLUAD) 01/23/2020 TDAP (age 10 and older)(Boostrix) 11/08/2021, Varicella Zoster Vaccine (Adult) 10/24/2014 Zoster Vaccine Recombinant (Shingrix) 09/27/2018 ,07/16/2018 documented as of this encounter Social History Tobacco Use Types Packs/Day Years Used Date Smoking Tobacco: Former Cigarettes Q uit: 1975 Smokeless Tobacco: Never Alcohol Use Standard Drinks/Week Comments Yes 0 (1 standard drink = 0.6 oz pure alcohol) a glass a wine about once a month PHQ-2 Answer Date Recorded PHQ Adult Total Score 0 04/07/2023 Sex and Gender Information Value Date Recorded Sex Assigned at Male 04/06/2023 2:46 PM EST Gender Identity Male 04/06/2023 2:46 PM EST Sexual Orientation Straight 04/06/2023 2: 46 PM EST Job Start Date Occupation Industry Not on file Not on file Not on file documented as of this encounter Miscellaneous Notes * Telephone Encounter - Sruthi Pendleton LPN - 06/01/2023 11:17 AM EST Did you pend patient's preferred pharmacy and medication before forwarding?yes Pharmacy: [facility] [id number] [place] [address] No prescriptions requested or ordered in this encounter Last Visit: 04/07/2023 (in office), Visit date not found (telemedicine) Next Visit: 10/08/2023 If no future appointments scheduled, and last appointment is greater than a year ago, please schedule patient for a follow-up appointment Last date the medication was ordered: 04/07/2023 Is this request for a controlled substance?No Urine Drug Screen:No results found for this or any previous visit. Patient Phone Numbers Labs: Lab Results Component Value Date/Time CREAT 0.9 04/08/2023 12:56 PM CREAT 0.84 02/24/2022 03:40 PM POTASSIUM 4.8 04/08/2023 12:56 PM POTASSIUM 4.5 02/24/2022 03:40 PM LDLCALC 58 12/17/2022 09:23 AM LDLDIRECT 66 04/10/2023 07:47 AM ALT 12 04/08/2023 12:56 PM ALT 12 02/28/2019 09:06 AM HGBA1C 5.7 (H) 04/08/2023 12:56 PM HGBA1C 5.7 (H) 12/17/2022 09:23 AM * Telephone Encounter - Oksana Copeland CPhT - 06/01/2023 10:29 AM EST Patient calling requesting the following medication below that is listed as "Historical". The following information was provided: Medication Name: Tamsulosin Strength: 0.4 MG Directions: 1 TAB DAILY Preferred Quantity: 90 DAY Previous Prescriber: Dr. Mccollum Urologist Preferred Pharmacy: [facility] [address] [place] [address] Medication Name: Metoprolol Strength: 37.5 MG Directions: 2 TABS DAILY Preferred Quantity: 90 DAY Previous Prescriber: Dr. Mccollum Preferred Pharmacy: [facility] [id number] [place] [address] Please review and approve if appropriate. Thank you, Oksana Copeland, [facility] 06/01/2023, 10:29 AM documented in this encounter Plan of Treatment Upcoming Encounters Date Type Department Care Team (Late st Contact Info) Description 06/03/2023 11:15 AM EST Office Visit General Surgery, [facility] [address] [facility] [place] [address] Lance Quarles MD [address] [facility] [place] [phone] 06/29/2023 4:00 PM EST Cardiac Studies Cardiac Studies, [facility] [address] [facility] [place] [address] 10/08/2023 1:00 PM EDT Office Visit General Internal Medicine [facility] [address] [facility] [place] [address] [facility] [address] 11/24/2023 8:00 AM EDT Office Visit Urology, [facility] [address] [facility] [place] [address] Markus Raymond MD [address] [address] 11/30/2023 2:00 PM EDT Office Visit Cardiology, [facility] [address] [facility] [place] [address] Carol Cruz CRNP [address] [facility] [place] [phone] Health Maintenance Due Date Last Done Comments COVID-19 Vaccine ( season) 2023 08/13/2021, 03/05/2021, 07/30/2020, Additional history exists Influenza Vaccine (FLU shot) (#1) 2023 01/23/2020 Depression Screening 04/07/2024 04/07/2023 HbA1c 04/08/2024 04/08/2023, 01/2023, 06/13/2022, Additional history exists COLONOSCOPY-EVERY 5 YRS AGES 18-100 04/17/2025 04/17/2020 DTaP,Tdap,and Td Vaccines (4 - Td or Tdap) 11/09/2031 11/08/2021, 03/15/2015, 03/01/2015 Pneumococcal Vaccine: 65+ Years Completed 04/07/2016, 09/25/2014 Zoster Vaccines Completed 09/27/2018, 12/2018, 10/24/2014 GARDASIL-HPV IMMUNIZATION SERIES Aged Out No longer eligible based on patient's age to complete this topic Hepatitis B Aged Out No longer eligi ble based on patient's age to complete this topic MENINGOCOCCAL (MENACTRA/MENVEO) Aged Out No longer eligible based on patient's age to complete this topic documented as of this encounter Medical Devices Not on filedocumented as of this encounter Care Teams Air Battle Manager Relationship Specialty Start Date End Date Renzo Camacho MD [address] [facility] [place] [address] PCP - General Internal Medicine 04/24/23 documented as of this encounter
--- OUTSIDE RECORDS SUMMARY | 2023-06-16 04:24 | External Medical Summary | Summary of Care ---
Author Name Unknown Organization [facility] Address [address] [place] [address] Phone [phone] Care Team Providers Care Roll Up Helper Name Role Phone Renzo Camacho MD Primary Care Provider + Reason for Visit * Reason Comments Post-Op 04/20/2023 pilonidal cyst Encounter Details Date Type Department Care Team (Late st Contact Info) Description 06/03/2023 11:15 AM EST Office Visit General Surgery, [facility] 132 [facility] [place] [address] Lance Quarles MD 132 [facility] [place] [address] Postop check* Allergies Active Allergy Reactions Criticality Noted Date [...] as of this encounter (statuses as of 06/03/2023) Medications Medication Sig Dispensed Refills Start Date [...] 30 Capsule 5 04/07/2023 Active Saline Nasal [place] 0.65 % Nasal Solution ([place] Nasal [place]) Administer 2 Sprays into each nostril as needed for Congestion. for nasal dryness or congestion 0 04/07/2023 Active Cephalexin 500 MG Oral Capsule (Keflex) Take 1 Capsule by mouth every 6 hours. 28 Capsule 0 04/29/2023 Active Rosuvastatin Calcium 40 MG Oral Tablet (Crestor) Take 1 Tablet by mouth at bedtime. 90 Tablet 3 05/06/2023 Active Tamsulosin HCl 0.4 MG Oral Capsule (Flomax) Take 1 Capsule by mouth in the morning. 90 Capsule 3 06/01/2023 Active oxyCODONE-Acetamino phen 5-325 MG Oral Tablet (Percocet) Take 1 Tablet by mouth every 4 hours as needed for Pain, Moderate. 20 Tablet 0 04/29/2023 4 Discontinu ed(End of Procedure) documented as of this encounter (statuses as of 06/03/2023) Active Problems Problem Noted Date Diagnosed Date Prediabetes 04/07/2023 Mild aortic stenosis 04/07/2023 Overview: Last echo 2021 Coronary artery disease invo lving [place] coronary artery of [place] heart without angina pectoris 04/07/2023 S/P CABG (coronary artery bypass graft) 04/07/20 23 History of prostate cancer 04/07/2023 Mixed hyperlipidemia 04/07/2023 OMID (obstructive sleep apnea) 04/07/2023 History of pulmonary embolism 04/07/2023 Overview: S/p surgery 2012 Post-nasal drip 04/07/2023 documented as of this encounter (statuses as of 06/03/2023) Resolved Problems Problem Noted Date Diagnosed Date Resolved Date HTN, goal below 130/80 04/07/202304/07 documented as of this encounter (statuses as of 06/03/2023) Immunizations Name Administration Dates Next Due COVID-19 [...] on file documented as of this encounter Progress Notes * Lance Quarles MD - 06/03/2023 11:18 AM EST Roe Kiser is s/p an excision of a pilonidal cyst on 04/20/2023. The patient is overall doing well. Pain is controlled with current analgesics. Fever has not been present. This patient has some wound drainage and has some wound erythema. The patient has no drains in place. PE: There were no vitals taken for this visit. General: alert, healthy, and no distress Incision site: healing well; dehiscence getting smaller; good granulation Assessment: Roe Kiser is doing well. All questions answered. Will begin packing dressings daily, all sutures removed. Plan: follow - up 4 weeks Lance Quarles MD 06/03/2023 11:25 AM documented in this encounter Nursing Notes * Aissatou Gaspar LPN - 06/03/2023 11:13 AM EST Chief Complaint Patient presents with Post-Op 04/20/2023 pilonidal cyst Patient states he had a lot of pain yesterday, not as much today, bearable. documented in this encounter Plan of Treatment Upcoming Encounters Date Type Department Care Team (Late st Contact Info) Description 06/29/2023 11:15 AM EST Office Visit General Surgery, [facility] [address] [address] Lance Quarles MD [address] [place] [address] 06/29/2023 4:00 PM EST Cardiac Studies Cardiac Studies, [facility] [address] [place] [address] 10/08/2023 1:00 PM EDT Office Visit General Internal Medicine [facility] [address] [place] [address] Renzo Camacho MD 200 [facility] [place] [address] 11/24/2023 8:00 AM EDT Office Visit Urology, [facility] 132 [facility] [place] [address] Markus Raymond MD 27 [facility] [address] [place] [address] 11/30/2023 2:00 PM EDT Office Visit Cardiology, [facility] 132 [facility] [place] [address] Carol Cruz CRNP 132 [facility] [place] [address] Health Maintenance Due Date Last Done Comments Depression Screening 04/07/2024 04/07/2023 HbA1c 04/08/2024 04/08/2023, 01/2023, 06/13/2022, Additional history exists COLONOSCOPY-EVERY 5 YRS AGES 18-100 04/17/2025 04/17/2020 DTaP,Tdap,and Td Vaccines (4 - Td or Tdap) 11/09/2031 11/08/2021, 03/15/2015, 03/01/2015 Pneumococcal Vaccine: 65+ Years Completed 04/07/2016, 09/25/2014 Zoster Vaccines Completed 09/27/2018, 12/2018, 10/24/2014 COVID-19 Vaccine Completed 03/21/2023, 08/2021, 08/13/2021, Additional history exists Influenza Vaccine (FLU shot) Completed 03/2023, 02/19/2022, 01/30/2021, Additional history exists GARDASIL-HPV IMMUNIZATION SERIES Aged Out No longer eligible based on patient's age to complete this topic Hepatitis B Aged Out No longer eligi ble based on patient's age to complete this topic MENINGOCOCCAL (MENACTRA/MENVEO) Aged Out No longer eligible based on patient's age to complete this topic documented as of this encounter Medical Devices Not on filedocumented as of this encounter Visit Diagnoses Diagnosis Postop check- Primary Follow-up examination, following unspecified surgery documented in this encounter Care Teams Roll Up Helper Relationship Specialty Start Date End Date Renzo Camacho MD 200 [facility], [place] [id number] PCP - General Internal Medicine 04/24/23 documented as of this encounter
--- OUTSIDE RECORDS SUMMARY | 2023-06-16 04:24 | External Medical Summary | Summary of Care ---
Author Name Unknown Organization [facility] Address [address] [place] [address] Phone [phone] Care Team Providers Care Professor Of Forest Planning Name Role Phone Renzo Camacho MD Primary Care Provider + Reason for Visit * Reason Comments Follow Up Pilonidal cyst remov al. Encounter Details Date Type Department Care Team (Late st Contact Info) Description 05/13/2023 9:45 AM EST Office Visit General Surgery, [facility] [address] Lance Quarles MD 132 [facility] [place] [address] Postop check* Allergies Active Allergy Reactions Criticality [...] as of this encounter (statuses as of 05/13/2023) Medications Medication Sig Dispensed Refills Start Date End Date Status Aspirin 81 MG Oral Tablet Chewable Take 1 Tablet by mouth in the morning. 0 02/09/2022 Active Tamsulosin HCl 0.4 MG Oral Capsule (Flomax) Take 1 Capsule by mouth in the morning. 0 Active Metoprolol Tartrate 37.5 MG Oral Tablet [...] on 04/16/2023 Ezetimibe 10 MG Oral Tablet (Zetia)Indications:M ixed hyperlipidemia Take 1 Tablet by mouth in the morning. 90 Tablet 3 04/07/2023 Active Myrbetriq 50 MG Oral Tablet Extended Release 24 Hour (Mirabegron ER)Indications:Histo ry of prostate cancer Take 1 Tablet by mouth in the morning. 90 Tablet 3 04/07/2023 Active DULoxetine HCl 30 MG Oral Capsule Delayed Release Particles (Cymbalta)Indication s:Polyarthralgia Take 1 Capsule by mouth in the morning. Do not cut, crush or chew. 30 Capsule 5 04/07/2023 Active Saline Nasal [place] 0.65 % Nasal Solution ([place] Nasal [place]) Administer 2 Sprays into each nostril as needed for Congestion. for nasal dryness or congestion 0 04/07/2023 Active Cephalexin 500 MG Oral Capsule (Keflex) Take 1 Capsule by mouth every 6 hours. 28 Capsule 0 04/29/2023 Active oxyCODONE-Acetaminop hen 5-325 MG Oral Tablet (Percocet) Take 1 Tablet by mouth every 4 hours as needed for Pain, Moderate. 20 Tablet 0 04/29/2023 Active Rosuvastatin Calcium 40 MG Oral Tablet (Crestor) Take 1 Tablet by mouth at bedtime. 90 Tablet 3 05/06/2023 Active documented as of this encounter (statuses as of 05/13/2023) Active Problems Problem Noted Date Diagnosed Date Prediabetes 04/07/2023 Mild aortic stenosis 04/07/2023 Overview: Last echo 2021 Coronary artery disease invo lving tribal coronary artery of tribal heart without angina pectoris 04/07/2023 S/P CABG (coronary artery bypass graft) 04/07/20 23 History of prostate cancer 04/07/2023 Mixed hyperlipidemia 04/07/2023 OMID (obstructive sleep apnea) 04/07/2023 History of pulmonary embolism 04/07/2023 Overview: S/p surgery 2012 Post-nasal drip 04/07/2023 documented as of this encounter (statuses as of 05/13/2023) Resolved Problems Problem Noted Date Diagnosed Date Resolved Date HTN, goal below 130/80 04/07/202304/07 documented as of this encounter (statuses as of 05/13/2023) Immunizations Name Administration Dates Next Due COVID-19 [...] Progress Notes * Lance Quarles MD - 05/13/2023 9:59 AM EST Roe Kiser is s/p an [...] healthy, and no distress Incision site: healing well and near total dehiscence Assessment: Roe Kiser is doing well. All questions answered. Will begin packing dressings daily, all sutures removed. Plan: follow - up 3 weeks Lance Quarles MD documented in this encounter Nursing Notes * Eddie Pimentel MED ASSIST - 05/13/2023 9:44 AM EST Chief Complaint Patient presents with Follow Up Pilonidal cyst removal. Verified patient. Some pain 4-5/10 on/off. Some bleeding and drainage too. documented in this encounter Plan of Treatment Upcoming Encounters Date Type Department Care Team (Late st Contact Info) Description 06/03/2023 11:15 AM EST Office Visit General Surgery, [facility] [address] [place] [address] Lance Quarles MD [address] [place] [address] 06/29/2023 4:00 PM EST Cardiac Studies Cardiac Studies, [facility] [address] [place] [address] 10/08/2023 1:00 PM EDT Office Visit General Internal Medicine [facility] [place] 200 [facility] [place] [address] Renzo Camacho MD 200 [facility] [place] [address] 11/24/2023 8:00 AM EDT Office Visit Urology, [facility] [address] [place] [address] Markus Mcfadden MD [address] [place] [address] [place] [address] 11/30/2023 2:00 PM EDT Office Visit Cardiology, [facility] [address] [place] [address] Carol Cruz CRNP [address] [place] [address] Health Maintenance Due Date Last Done Comments COVID-19 Vaccine (2022- season) 2023 08/13/2021, 03/05/2021, 07/30/2020, Additional history [...] surgery documented in this encounter Care Teams Professor Of Forest Planning Relationship Specialty Start Date End Date Renzo Camacho MD [address] [place] [address] PCP - General Internal Medicine 04/24/23 documented as of this encounter
--- OUTSIDE RECORDS SUMMARY | 2023-06-16 04:24 | External Medical Summary | Summary of Care ---
Author Name Unknown Organization [facility] Address [address] [place] [address] Phone [phone] Care Team Providers Care Rn Icu Name Role Phone Renzo Camacho MD Primary Care Provider + Reason for Visit * Reason Comments Post-Op 04/20/2023 pilonidal cyst Encounter Details Date Type Department Care Team (Late st Contact Info) Description 06/03/2023 11:15 AM EST Office Visit General Surgery, [facility] 132 [facility] [place] [address] Lance Quarles MD 132 [facility] [place] [address] Postop check* Allergies Active Allergy Reactions Criticality [...] 30 Capsule 5 04/07/2023 Active Saline Nasal [place] 0.65 % Nasal Solution ([place] Nasal [place]) Administer 2 Sprays into each nostril as [...] echo 2021 Coronary artery disease invo 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 All questions answered. Will [...] 11:15 AM EST Office Visit General Surgery, [facility] [address] [address] Lance Quarles MD [address] [place] [address] 06/29/2023 4:00 PM EST Cardiac Studies Cardiac Studies, [facility] [address] [place] [address] 10/08/2023 1:00 PM EDT Office Visit General Internal Medicine [facility] [address] [place] [address] Renzo Camacho MD 200 [facility] [place] [address] 11/24/2023 8:00 AM EDT Office Visit Urology, [facility] 132 [facility] [place] [address] Markus Raymond MD 27 [facility] [address] [place] [address] 11/30/2023 2:00 PM EDT Office Visit Cardiology, [facility] 132 [facility] [place] [address] Carol Cruz CRNP 132 [facility] [place] [address] Health Maintenance Due Date Last Done Comments [...] surgery documented in this encounter Care Teams Rn Icu Relationship Specialty Start Date End Date Renzo Camacho MD 200 [facility], [place] [id number] PCP - General Internal Medicine 04/24/23 documented as of this encounter
--- OUTSIDE RECORDS SUMMARY | 2023-06-16 04:25 | External Medical Summary | Summary of Care ---
Author Name Unknown Organization [facility] Address [address] [place] [address] Phone [phone] Care Team Providers Care Uppers Edge Burnisher Name Role Phone Renzo Camacho MD Primary Care Provider + Reason for Visit * Reason Comments Post-Op Pilonidal cyst remov al. Encounter Details Date Type Department Care Team (Late st Contact Info) Description 04/29/2023 9:30 AM EST Office Visit General Surgery, [facility] [address] Lance Quarles MD 132 [place] [address] Postop check* Allergies Active Allergy Reactions Criticality [...] as of this encounter (statuses as of 04/29/2023) Medications Medication Sig Dispensed Refills Start Date [...] and 37.5 mg before bedtime. 0 Active Rosuvastatin Calcium 40 MG Oral Tablet (Crestor) Take 1 Tablet by mouth at bedtime. 0 Active Diclofenac Sodium 75 MG [...] 30 Capsule 5 04/07/2023 Active Saline Nasal [place] 0.65 % Nasal Solution ([place] Nasal [place]) Administer 2 Sprays into each nostril as needed for Congestion. for nasal dryness or congestion 0 04/07/2023 Active Cephalexin 500 MG Oral Capsule (Keflex) Take 1 Capsule by mouth every 6 hours. 28 Capsule 0 04/29/2023 Active oxyCODONE-Acetaminop hen 5-325 MG Oral Tablet (Percocet) Take 1 Tablet by mouth every 4 hours as needed for Pain, Moderate. 20 Tablet 0 04/29/2023 Active documented as of this encounter (statuses as of 04/29/2023) Active Problems Problem Noted Date Diagnosed Date Prediabetes 04/07/2023 Mild aortic stenosis 04/07/2023 Overview: Last echo 2021 Coronary artery disease invo lving [place] coronary artery of [place] heart without angina pectoris 04/07/2023 S/P CABG (coronary artery bypass graft) 04/07/20 23 History of prostate cancer 04/07/2023 Mixed hyperlipidemia 04/07/2023 OMID (obstructive sleep apnea) 04/07/2023 History of pulmonary embolism 04/07/2023 Overview: S/p surgery 2011 Post-nasal drip 04/07/2023 documented as of this encounter (statuses as of 04/29/2023) Resolved Problems Problem Noted Date Diagnosed Date Resolved Date HTN, goal below 130/80 04/07/202304/07 documented as of this encounter (statuses as of 04/29/2023) Immunizations Name Administration Dates Next Due COVID-19 [...] on file documented as of this encounter Last Filed Vital Signs Vital Sign Reading Time Taken Comments Blood Pressure - - Pulse - - Temperature 36.4 C (97.5 F) 04/29/2023 9:39 AM ES T Respiratory Rate - - Oxygen Saturation - - Inhaled Oxygen Concentration - - Weight - - Height - - Body Mass Index - - documented in this encounter Progress Notes * Lance Quarles MD - 04/29/2023 9:51 AM EST Roe Kiser is s/p an excision of a pilonidal cyst on 04/20/2023. The patient is overall doing well. Pain is controlled with current analgesics. Fever has not been present. This patient has some wound drainage and has some wound erythema. The patient has no drains in place. PE: Temperature 36.4 C (97.5 F). General: alert, healthy, and no distress Incision site: Some drainage, a little dehiscence, and clean, dry Assessment: Roe Kiser is doing OK. All questions answered. Plan: follow - up 10 days; Rx percocet and keflex Lance Quarles MD documented in this encounter Nursing Notes * Eddie Pimentel MED ASSIST - 04/29/2023 9:40 AM EST Chief Complaint Patient presents with Post-Op Pilonidal cyst removal. Verified patient. Some pain 7-9/10 constant. Patient is here with his today. documented in this encounter Plan of Treatment Upcoming Encounters Date Type Department Care Team (Late st Contact Info) Description 05/13/2023 9:45 AM EST Office Visit General Surgery, [facility] [address] [place] [address] Lance Quarles MD 132 [place] [address] 06/29/2023 4:00 PM EST Cardiac Studies Cardiac Studies, [facility] [address] [place] [address] 10/08/2023 1:00 PM EDT Office Visit General Internal Medicine [facility] 200 [facility] [place] [address] Renzo Camacho MD 200 [facility] [place] [address] 11/24/2023 8:00 AM EDT Office Visit Urology, [facility] 132 [facility] [place] [address] Markus Raymond MD [address] [place] [address] [place] [address] 11/30/2023 2:00 PM EDT Office Visit Cardiology, [facility] 132 [facility] [place] [address] Carol Cruz CRNP 132 [facility] [place] [address] Health Maintenance Due Date Last Done Comments [...] surgery documented in this encounter Care Teams Uppers Edge Burnisher Relationship Specialty Start Date End Date Renzo Camacho MD 200 [place] [address] PCP - General Internal Medicine 04/24/23 documented as of this encounter
--- OUTSIDE RECORDS SUMMARY | 2023-06-16 04:25 | External Medical Summary | Summary of Care ---
Author Name Unknown Organization [facility] Address [address] [place] [address] Phone [phone] Care Team Providers Care Gasket Supervisor Name Role Phone Renzo Camacho MD Primary Care Provider + Reason for Visit * Reason Onset Date Comments Call Back 04/24/2023 Encounter Details Date Type Department Care Team (Late st Contact Info) Description 04/24/2023 Telephone General Surgery, [facility] [address] [place] [address] Services, Scheduling [address] [place] [address] Call Back Allergies Active Allergy Reactions Criticality Noted Date [...] as of this encounter (statuses as of 04/28/2023) Medications Medication Sig Dispensed Refills Start Date [...] 30 Capsule 5 04/07/2023 Active Saline Nasal [place] 0.65 % Nasal Solution ([place] Nasal [place]) Administer 2 Sprays into each nostril as needed for Congestion. for nasal dryness or congestion 0 04/07/2023 Active documented as of this encounter (statuses as of 04/28/2023) Active Problems Problem Noted Date Diagnosed Date Prediabetes 04/07/2023 Mild aortic stenosis 04/07/2023 Overview: Last echo 2021 Coronary artery disease invo lving [place] coronary artery of [place] heart without angina pectoris 04/07/2023 S/P CABG (coronary artery bypass graft) 04/07/20 23 History of prostate cancer 04/07/2023 Mixed hyperlipidemia 04/07/2023 OMID (obstructive sleep apnea) 04/07/2023 History of pulmonary embolism 04/07/2023 Overview: S/p surgery 2011 Post-nasal drip 04/07/2023 documented as of this encounter (statuses as of 04/28/2023) Resolved Problems Problem Noted Date Diagnosed Date Resolved Date HTN, goal below 130/80 04/07/202304/07 documented as of this encounter (statuses as of 04/28/2023) Immunizations Name Administration Dates Next Due COVID-19 [...] encounter Miscellaneous Notes * Telephone Encounter - Augustine Quiñonez OSA - 04/28/2023 1:06 PM EST Reason for patient's call: drainage is worse, area is red, swollen, warm and painful Caller was transferred to [facility] at the nurse line. * Telephone Encounter - Aissatou Gaspar LPN - 04/24/2023 2:41 PM EST For you MIGUELITO, * Telephone Encounter - Autumn Lopez RN - 04/24/2023 12:58 PM EST This is a nurse triage encounter. If additional action is needed, do not route to nurse triage. Please route encounter to the applicable clinic pool. See separate service dismantler encounter. Autumn Lopez RN belt sewer 04/24/2023 12:58 PM * Telephone Encounter - Hailey Mcmanus OSA - 04/24/2023 12:18 PM EST Patient called back needing to speak with medical staff regarding the amount of drainage he is experiencing, soking through bandage, underwear and his pants, SX was at the base of his spine. Patient did LM for his Surgeon to return call as well. What is the reason for call? Post sx drainage What Clinic is the patient trying to reach? [facility] Clinic: [facility] - Call Type: Red Flag- route the telephone encounter as routine to belt sewer p [phone] Caller: patient Return Phone #: [phone] Call was routed "routine" to the [facility] nurse triage basket (p [phone]). Tried to send call to nurse triage but no answer * Telephone Encounter - Leigha Patricia OSA - 04/24/2023 10:51 AM EST Pt called stating he is having drainage from where Dr Quarles did the procedure - he states it doesn't look like blood but is concerned - pt had some pain as well. He does not think he has a fever -he states he felt clammy when he got up but that has passed. Tried to call office - got voicemail. Please call pt documented in this encounter Plan of Treatment Upcoming Encounters Date Type Department Care Team (Late st Contact Info) Description 04/30/2023 11:45 AM EST Office Visit General Surgery, [facility] [place] [address] [facility] 132 [facility] [address] 06/29/2023 4:00 PM EST Cardiac Studies Cardiac Studies, [facility] 132 [facility] [place] [address] 10/08/2023 1:00 PM EDT Office Visit General Internal Medicine [facility] 200 [facility] [place] [address] Renzo Camacho MD 200 [facility] [place] [address] 11/24/2023 8:00 AM EDT Office Visit Urology, [facility] 132 [facility] [place] [address] Markus Raymond MD [address] [place] [address] 11/30/2023 2:00 PM EDT Office Visit [facility]iology, [facility] [address] Carol Cruz CRNP 132 [facility] [address] Health Maintenance Due Date Last Done Comments COVID-19 Vaccine (2022- season) 2023 08/13/2021, 03/05/2021, 07/30/2020, Additional history exists Influenza Vaccine (FLU shot) (#1) 2023 01/23/2020 Depression Screening 04/07/2024 04/07/2023 HbA1c 04/08/2024 04/08/2023, 0801/2023, 06/13/2022, Additional history exists COLONOSCOPY-EVERY 5 YRS [...] filedocumented as of this encounter Care Teams Gasket Supervisor Relationship Specialty Start Date End Date Renzo Camacho MD 200 [place] [address] PCP - General Internal Medicine 04/24/23 documented as of this encounter
--- OUTSIDE RECORDS SUMMARY | 2023-06-16 04:25 | External Medical Summary | Summary of Care ---
Author Name Unknown Organization [facility] Address [address] [place] [address] Phone [phone] Care Team Providers Care Dairy Hand Name Role Phone Renzo Camacho MD Primary Care Provider + Reason for Visit * Reason Onset Date Comments Med Request 05/06/2023 Encounter Details Date Type Department Care Team (Late st Contact Info) Description 05/06/2023 Telephone General Internal Medicine [facility] [address] [place] [address] Renzo Camacho MD [address] [place] [address] Med Request Allergies Active Allergy Reactions Criticality [...] as of this encounter (statuses as of 05/06/2023) Medications Medication Sig Dispensed Refills Start Date [...] 30 Capsule 5 04/07/2023 Active Saline Nasal [place] 0.65 % Nasal Solution ([place] Nasal [place]) Administer 2 Sprays into each nostril as [...] at bedtime. 90 Tablet 3 05/06/2023 Active Rosuvastatin Calcium 40 MG Oral Tablet (Crestor) Take 1 Tablet by mouth at bedtime. 0 3 Discontinu ed(Refill) documented as of this encounter (statuses as of 05/06/2023) Active Problems Problem Noted Date Diagnosed Date Prediabetes 04/07/2023 Mild aortic stenosis 04/07/2023 Overview: Last echo 2021 Coronary artery disease invo lving [place] coronary artery of [place] heart without angina pectoris 04/07/2023 S/P CABG (coronary artery bypass graft) 04/07/20 23 History of prostate cancer 04/07/2023 Mixed hyperlipidemia 04/07/2023 OMID (obstructive sleep apnea) 04/07/2023 History of pulmonary embolism 04/07/2023 Overview: S/p surgery 2011 Post-nasal drip 04/07/2023 documented as of this encounter (statuses as of 05/06/2023) Resolved Problems Problem Noted Date Diagnosed Date Resolved Date HTN, goal below 130/80 04/07/202304/07 documented as of this encounter (statuses as of 05/06/2023) Immunizations Name Administration Dates Next Due COVID-19 [...] encounter Miscellaneous Notes * Telephone Encounter - Zulma Sigala CPhT - 05/06/2023 10:36 AM EST Patient calling requesting the following medication below that is listed as "Historical". The following information was provided: Medication Name: Rosuvastatin Strength: 40mg Directions: 1 tablets daily at bedtime Preferred Quantity: 90 Previous Prescriber: tito Wolfe Preferred Pharmacy: [facility] Please review and approve if appropriate. Thank you, Zulma Sigala Fabrication Engineer II [facility] ([facility]) (formerly Telepharmacy) 05/06/2023 10:37 AM documented in this encounter Plan of Treatment Upcoming Encounters Date Type Department Care Team (Late st Contact Info) Description 05/13/2023 9:45 AM EST Office Visit General Surgery, [facility] 132 [facility] [place] [address] Lance Quarles MD 132 [facility] [place] [address] 06/29/2023 4:00 PM EST Cardiac Studies Cardiac Studies, [facility] 132 [place] [address] 10/08/2023 1:00 PM EDT Office Visit General Internal Medicine [facility] [address] [place] [address] Renzo Camacho MD 200 [place] [address] 11/24/2023 8:00 AM EDT Office Visit Urology, [facility] 132 [facility] [place] [address] Markus Raymond MD [address] [address] [place] [address] 11/30/2023 2:00 PM EDT Office Visit Cardiology, [facility] 132 [facility] [place] [address] Carol Cruz CRNP 132 [facility] [place] [address] Health Maintenance Due Date Last Done Comments COVID-19 Vaccine ( - 2022-24 season) 2023 08/13/2021, 03/05/2021, 07/30/2020, Additional history [...] filedocumented as of this encounter Care Teams Dairy Hand Relationship Specialty Start Date End Date Renzo Camacho MD 200 [place] [address] PCP - General Internal Medicine 04/24/23 documented as of this encounter
--- OUTSIDE RECORDS SUMMARY | 2023-06-16 04:25 | External Medical Summary | Summary of Care ---
Author Name Unknown Organization [facility] Address [address] [place] [address] Phone [phone] Care Team Providers Care Master Deputy Sheriff Court Security Name Role Phone Renzo Camacho MD Primary Care Provider + Reason for Visit * Reason Onset Date Comments Call Back 04/24/2023 Encounter Details Date Type Department Care Team (Late st Contact Info) Description 04/24/2023 Telephone General Surgery, [facility] [address] [place] [address] Services, Scheduling [address] [place] [address] Call Back Allergies Active Allergy Reactions Criticality [...] as of this encounter (statuses as of 04/24/2023) Medications Medication Sig Dispensed Refills Start Date [...] 30 Capsule 5 04/07/2023 Active Saline Nasal [place] 0.65 % Nasal Solution ([place] Nasal [place]) Administer 2 Sprays into each nostril as needed for Congestion. for nasal dryness or congestion 0 04/07/2023 Active documented as of this encounter (statuses as of 04/24/2023) Active Problems Problem Noted Date Diagnosed Date Prediabetes 04/07/2023 Mild aortic stenosis 04/07/2023 Overview: Last echo 2021 Coronary artery disease invo lving [place] coronary artery of [place] heart without angina pectoris 04/07/2023 S/P CABG (coronary artery bypass graft) 04/07/20 23 History of prostate cancer 04/07/2023 Mixed hyperlipidemia 04/07/2023 OMID (obstructive sleep apnea) 04/07/2023 History of pulmonary embolism 04/07/2023 Overview: S/p surgery 2011 Post-nasal drip 04/07/2023 documented as of this encounter (statuses as of 04/24/2023) Resolved Problems Problem Noted Date Diagnosed Date Resolved Date HTN, goal below 130/80 04/07/202304/07 documented as of this encounter (statuses as of 04/24/2023) Immunizations Name Administration Dates Next Due COVID-19 [...] encounter Miscellaneous Notes * Telephone Encounter - Aissatou Gaspar LPN - 04/24/2023 2:41 PM EST For you MIGUELITO, * Telephone Encounter - Autumn Lopez RN - 04/24/2023 12:58 PM EST This is a nurse triage encounter. If additional action is needed, do not route to nurse triage. Please route encounter to the applicable clinic pool. See separate geographic information systems analyst encounter. Autumn Lopez RN diabetologist 04/24/2023 12:58 PM * Telephone Encounter - [...] Clinic is the patient trying to reach? [facility] Choose Clinic: Naty Burns - Call Type: Red Flag- route the telephone encounter as routine to diabetologist p [phone] Caller: patient Return Phone #: [phone] Call was routed "routine" to the [facility] nurse triage basket (p [phone]). Tried to send call to nurse triage [...] 11:45 AM EST Office Visit General Surgery, [facility] [address] [address] Lance Quarles MD [address] [place] [address] 06/29/2023 4:00 PM EST Cardiac Studies Cardiac Studies, [facility] [address] [place] [address] 10/08/2023 1:00 PM EDT Office Visit General Internal Medicine [facility] 200 [facility] [place], [place] [address] Renzo Camacho MD 200 [facility] [place] [address] 11/24/2023 8:00 AM EDT Office Visit Urology, [facility] 132 [place] [address] Markus Raymond MD [address] [place] [address] [place] [address] 11/30/2023 2:00 PM EDT Office Visit Cardiology, [facility] 132 [place] [address] Carol Cruz CRNP 132 [facility] [address] Health Maintenance Due Date Last Done Comments [...] Completed 04/07/2016, 09/25/2014 Zoster Vaccines Completed 09/27/2018, 030 12/2018, 10/24/2014 GARDASIL-HPV IMMUNIZATION SERIES Aged Out [...] filedocumented as of this encounter Care Teams Master Deputy Sheriff Court Security Relationship Specialty Start Date End Date Renzo Camacho MD 200 [place] [address] PCP - General Internal Medicine 04/24/23 documented as of this encounter
--- OUTSIDE RECORDS SUMMARY | 2023-06-16 04:25 | External Medical Summary | Summary of Care ---
Author Name Unknown Organization [facility] Address [address] [place] [address] Phone [phone] Care Team Providers Care Field Representatives Director Name Role Phone Renzo Camacho MD Primary Care Provider + Reason for Visit * Reason Onset Date Comments Call Back 04/24/2023 Encounter Details Date Type Department Care Team (Late st Contact Info) Description 04/24/2023 Telephone General Surgery, [facility] [address] [place] [address] Services, Scheduling [address] [place] [address] Call Back Allergies Active Allergy Reactions Criticality [...] 30 Capsule 5 04/07/2023 Active Saline Nasal [place] 0.65 % Nasal Solution ([place] Nasal [place]) Administer 2 Sprays into each nostril as needed for Congestion. for nasal dryness or congestion 0 04/07/2023 Active documented as of this encounter (statuses as of 04/24/2023) Active Problems Problem Noted Date Diagnosed Date Prediabetes 04/07/2023 Mild aortic stenosis 04/07/2023 Overview: Last echo 2021 Coronary artery disease invo lving [place] coronary artery of [place] heart without angina pectoris 04/07/2023 S/P CABG [...] encounter Miscellaneous Notes * Telephone Encounter - Autumn Lopez RN - 04/24/2023 12:58 PM EST This is a nurse triage encounter. If additional action is needed, do not route to nurse triage. Please route encounter to the applicable clinic pool. See separate financial services education consultant encounter. Autumn Lopez RN evp managing director 04/24/2023 12:58 PM * Telephone Encounter - [...] Clinic is the patient trying to reach? [facility] Clinic: Naty Burns - Call Type: Red Flag- route the telephone encounter as routine to evp managing director p [phone] Caller: patient Return Phone #: [phone] Call was routed "routine" to the [facility] nurse triage basket (p [phone]). Tried to send call to nurse triage [...] 11:45 AM EST Office Visit General Surgery, [facility] [address] [place] [address] Lance Quarles MD [address] [place] [address] 06/29/2023 4:00 PM EST Cardiac Studies Cardiac Studies, [facility] [address] [place] [address] 10/08/2023 1:00 PM EDT Office Visit General Internal Medicine [facility] [place] 200 [facility] [place] [address] Renzo Camacho MD 200 [facility] [place] [address] 11/24/2023 8:00 AM EDT Office Visit Urology, [facility] 132 [facility] [place] [address] Markus Raymond MD 27 [facility] [address] [place] [address] 11/30/2023 2:00 PM EDT Office Visit Cardiology, [facility] 132 [facility] [place] [address] Carol Cruz CRNP 132 [facility] [place] [address] Health Maintenance Due Date Last Done Comments [...] filedocumented as of this encounter Care Teams Field Representatives Director Relationship Specialty Start Date End Date Renzo Camacho MD [address] [place] [address] PCP - General Internal Medicine 04/24/23 documented as of this encounter
--- OUTSIDE RECORDS SUMMARY | 2023-06-16 04:25 | External Medical Summary | Summary of Care ---
Author Name Unknown Organization [facility] Address [address] [place] [address] Phone [phone] Care Team Providers Care Primary Clinician Name Role Phone Renzo Camacho MD Primary Care Provider + Reason for Visit * Reason Onset Date Comments Call Back 04/24/2023 Encounter Details Date Type Department Care Team (Late st Contact Info) Description 04/24/2023 Telephone General Surgery, [facility] [address] [place] [address] Services, Scheduling [address] [place] [address] Call Back Allergies Active Allergy Reactions Criticality [...] 30 Capsule 5 04/07/2023 Active Saline Nasal [place] 0.65 % Nasal Solution ([place] Nasal [place]) Administer 2 Sprays into each nostril as needed for Congestion. for nasal dryness or congestion 0 04/07/2023 Active documented as of this encounter (statuses as of 04/24/2023) Active Problems Problem Noted Date Diagnosed Date Prediabetes 04/07/2023 Mild aortic stenosis 04/07/2023 Overview: Last echo 2021 Coronary artery disease invo lving [place] coronary artery of [place] heart without angina pectoris 04/07/2023 S/P CABG [...] encounter Miscellaneous Notes * Telephone Encounter - Leigha Patricia OSA [...] 11:45 AM EST Office Visit General Surgery, [address] [place] [address] Lance Quarles MD 132 [facility] [place] [address] 06/29/2023 4:00 PM EST Cardiac Studies Cardiac Studies, [facility] 132 [facility] [place] [address] 10/08/2023 1:00 PM EDT Office Visit General Internal Medicine [facility] 200 [facility] [place] [address] Renzo [facility] MD [facility] [address] 11/24/2023 8:00 AM EDT Office Visit Urology, [facility] 132 [facility] [place] [address] Markus Raymond MD [address] [place] [address] [place] [address] 11/30/2023 2:00 PM EDT Office Visit Cardiology, [facility] 132 [facility] [place] [address] Carol Cruz CRNP 132 [facility] [place] [address] Health Maintenance Due Date Last Done Comments COVID-19 Vaccine (2022-24 season) 2023 08/13/2021, 03/05/2021, 07/30/2020, Additional history exists Influenza Vaccine (FLU shot) (#1) 2023 01/23/2020 Depression Screening 04/07/2024 04/07/2023 HbA1c 04/08/2024 04/08/2023, 08/0 01/2023, 06/13/2022, Additional history exists COLONOSCOPY-EVERY 5 [...] filedocumented as of this encounter Care Teams Primary Clinician Relationship Specialty Start Date End Date Renzo Camacho MD 200 [place] [address] PCP - General Internal Medicine 04/24/23 documented as of this encounter
--- OUTSIDE RECORDS SUMMARY | 2023-06-16 04:25 | External Medical Summary | Summary of Care ---
Author Name Unknown Organization [facility] Address [address] [place] [address] Phone [phone] Care Team Providers Care Zigzag Elastic Attacher Name Role Phone Renzo Camacho MD Primary Care Provider + Reason for Visit * Reason Onset Date Comments Call Back 04/24/2023 Encounter Details Date Type Department Care Team (Late st Contact Info) Description 04/24/2023 Telephone General Surgery, [facility] [address] [place] [address] Services, Scheduling [address] [place] [address] Call Back Allergies Active Allergy Reactions Criticality [...] 30 Capsule 5 04/07/2023 Active Saline Nasal [place] 0.65 % Nasal Solution ([place] Nasal [place]) Administer 2 Sprays into each nostril as needed for Congestion. for nasal dryness or congestion 0 04/07/2023 Active documented as of this encounter (statuses as of 04/24/2023) Active Problems Problem Noted Date Diagnosed Date Prediabetes 04/07/2023 Mild aortic stenosis 04/07/2023 Overview: Last echo 2021 Coronary artery disease invo lving [place] coronary artery of [place] heart without angina pectoris 04/07/2023 S/P CABG [...] encounter Miscellaneous Notes * Telephone Encounter - Hailey Mcmanus OSA [...] Clinic is the patient trying to reach? [facility] Clinic: Naty Burns - Call Type: Red Flag- route the telephone encounter as routine to fish dressing machine feeder p [phone] Caller: patient Return Phone #: [phone] Call was routed "routine" to the [facility] nurse triage basket (p [phone]). Tried to send call to nurse triage [...] 11:45 AM EST Office Visit General Surgery, [facility] 132 [facility] [place] [address] Lance Quarles MD 132 [facility] [place] [address] 06/29/2023 4:00 PM EST Cardiac Studies Cardiac Studies, [facility] 132 [facility] [place] [address] 10/08/2023 1:00 PM EDT Office Visit General Internal Medicine [facility] 200 [facility] [place] [address] Renzo [facility]acho MD [facility] [address] 11/24/2023 8:00 AM EDT Office Visit Urology, [facility] 132 [facility] [place] [address] Markus Raymond MD [address] [place] [address] [place] [address] 11/30/2023 2:00 PM EDT Office Visit Cardiology, [facility] [address] [place] [address] Carol Cruz CRNP [address] [place] [address] Health Maintenance Due Date Last Done Comments [...] Completed 04/07/2016, 09/25/2014 Zoster Vaccines Completed 09/27/2018, 0 12/2018, 10/24/2014 GARDASIL-HPV IMMUNIZATION SERIES Aged Out [...] filedocumented as of this encounter Care Teams Zigzag Elastic Attacher Relationship Specialty Start Date End Date Renzo Camacho MD [address] [place] [address] PCP - General Internal Medicine 04/24/23 documented as of this encounter
[2023-06-16] MEDS: ERTAPENEM SODIUM 1,000 MG in SYRINGE 0 ML IV SCH (04:51)
[2023-06-16] MEDS: SODIUM CHLORIDE 0.9% 1,000 ML IV SCH (04:52)
[2023-06-16] MEDS: HYDROmorphone INJ 0.5 MG/0.5 ML SYR IV PRN (05:04)
[2023-06-16 06:06] LABS: BUN Creatinine Ratio 26.2 (10-20); Calcium 8.5 mg/dl (8.6-10.3); Creatinine Clr Calc Pharmacy 79.5 ml/min; Est GFR (African American) 97.2 ml/min; Est GFR (Non-African American) 83.9 ml/min; Magnesium 2.1 mg/dl (1.7-2.4); Potassium 3.9 mmol/L (3.5-5.1)
[2023-06-16 06:15] LABS: Basophils # (auto) 0.03 K/uL (0.00-0.20); Basophils % (auto) 0.4 %; Eosinophils # (auto) 0.09 K/uL (0.00-0.50); Eosinophils % (auto) 1.2 %; Hematocrit (blood only) 30.5 % (42.0-52.0); Hemoglobin 9.9 g/dl (14.0-18.0); Immature Granulocytes # (auto) 0.03 K/uL (0.01-0.20); Immature Granulocytes % (auto) 0.4 %; Lymphocytes # (auto) 0.85 K/uL (1.20-3.40); Lymphocytes % (auto) 11.3 %; Mean Corpuscular Hemoglobin 28.6 pg (25.0-34.0); Mean Corpuscular Hgb Conc 32.5 g/dL (32.0-36.0); Mean Corpuscular Volume 88.2 fL (80.0-100.0); Mean Platelet Volume 8.8 fL (9.4-12.4); Monocytes # (auto) 1.18 K/uL (0.11-0.59); Monocytes % (auto) 15.7 %; Neutrophils # (auto) 5.33 K/uL (1.40-6.50); Platelet Count 230 K/uL (130-400); RDW Coefficient of Variation 16.3 % (11.5-14.5); RDW Standard Deviation 52.3 fL (36.4-46.3); Red Blood Count 3.46 M/uL (4.70-6.10); White Blood Count 7.51 K/ul (4.8-10.8)
--- NOTE | 2023-06-16 07:45 | Pharmacy Report ---
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 * Day #1 of antimicrobial therapy. * ID consulted. Awaiting input. * Afebrile. No leukocytosis. SCr appears to be at baseline (0.84 mg/dL). * Blood cultures pending. * Of note, patient has allergies listed to Penicillins (rash), Sulfa (rash), and Clindamycin (upset stomach). Has tolerated Cefazolin and Ceftriaxone within the last 90 days. Plan Vancomycin * Loading dose: 2750 mg IV x 1 (29 mg/kg) * Maintenance dose: 1000 mg IV every 12 hours * Regimen is predicted to achieve target AUC/SELENE of 400-600 mg/L.hr * Random level ordered for: 06/18/ AM Pharmacy will continue to follow and will adjust dose/frequency as necessary. Thank you. Pharmacy has transitioned to AUC monitoring for vancomycin. AUC/SELENE is the preferred PK/PD target and is associated with decreased risk of nephrotoxicity compared to traditional trough targets.
[2023-06-16] MEDS: ASPIRIN 81 MG ECTAB PO SCH (09:39)
[2023-06-16] MEDS: ASCORBIC ACID 500 MG TAB PO SCH (09:39)
[2023-06-16] MEDS: CALCIUM 600MG + VIT D 400 IU TAB PO SCH (09:40)
[2023-06-16] MEDS: DULoxetine HCL 30 MG CAP PO SCH (09:40)
[2023-06-16] MEDS: METOPROLOL TARTRATE 25 MG TAB PO SCH (09:40)
[2023-06-16] MEDS: VIBEGRON 75 MG TAB PO SCH (09:41)
[2023-06-16] MEDS: ENOXAPARIN INJ 40 MG/0.4 ML SYR SQ SCH (09:48)
[2023-06-16] MEDS: EZETIMIBE 10 MG TAB PO SCH ×2 (10:55→20:39)
[2023-06-16] MEDS: TAMSULOSIN HCL 0.4 MG CAP PO SCH ×2 (10:55→20:40)
--- NOTE | 2023-06-16 11:44 | Surgery Consultation ---
Date of Consultation June 16, 2023 Assessment & Plan (1) Sacral osteomyelitis: This is a 78yM with a PMH of pilonidal disease, CAD s/p CABG, HTN, OMID who presents to the [facility] ED on 06/16/23 with complaints of pain of his sacral region. Of significance the patient is recently s/p excision of pilonidal cyst on 04/[address] Quarles. He states that since surgery the pain has been getting worse with time. He was seen in follow up 2x for evaluation and the second visit his sutures were removed and it was deemed the patient was doing well from post surgery. He was referred to his PCP due to concern for other issues going on causing his symptoms. He went to his PCP office yesterday who was concerned with how the wound looked and sent him to our ER for further evaluation. In the ER the patient underwent a pelvic CT scan which showed a sacral decubitus ulcer or pilonidal cyst with associated subcutaneous fat stranding and skin thickening concerning for cellulitis. There also appears to be associated erosion of the sacrum concerning for osteomyelitis. WBC 7.5. Vitals stable and patient is afebrile. On exam patient is lying on his R side in bed. The sacral wound evaluated, healing from 2ndary intention, in the surgical bed there is small amount of purulent drainage, tenderness to palpation, sin gular blue stitch in place. It is tender to palpation with some surrounding erythema. Infectious disease has been consulted. An MRI has been ordered and will help provide further information regarding the possible osteomyelitis. Given that the patient is fresh post op from his pilonidal excision we will defer further care to his surgeon who has been informed and will see the patient tomorrow. For now obtain MRI, continue IV abx, and local wound care (upholstery restorer to be consulted). [facility] surgery to sign off. (2) Pilonidal disease: Supervising Physician Co-Signing Physician Notes d/w JEN Rodriguez, labs and imaging reviewed, agree with above. s/p pilonidal cystectomy by Dr. Quarles in April, has had worsening low back pain since. wbc normal, CT showed open wound with possible osteomyelitis. Seems unlikely given history and normal wbc. Would recommend MRI, crp/esr to further assess. Dr. Quarles will f/u tomorrow. History of Present Illness Attending Physician: Shaggy Mohamud MD History of Present Illness This is a 78yM with a PMH of pilonidal disease, CAD s/p CABG, HTN, OMID who presents to the [facility] ED on 06/16/23 with complaints of pain of his sacral region. Of significance the patient is recently s/p excision of pilonidal cyst on 04/[address] Quarles. The patient reports he took narcotics for up to 2 weeks after his procedure, but has been dealing with pain since post op. He states the pain has been getting worse with time. In the mornings it is tolerable, but by the afternoon it is worse and he can barely walk or lay on his back because of it. He wears a pad for in his pants to collect any drainage, it started out bloody but now he calls it purulent. He was seen in follow up 2x for evaluation and the second visit his sutures were removed and it was deemed the patient was doing well from post surgery. He was referred to his PCP due to concern for other issues going on causing his symptoms. He went to his PCP office yesterday who was concerned with how the wound looked and sent him to our ER for further evaluation. In the ER the patient underwent a pelvic CT scan which showed a sacral decubitus ulcer or pilonidal cyst with associated subcutaneous fat stranding and skin thickening concerning for cellulitis. There also appears to be associated erosion of the sacrum concerning for osteomyelitis. The patient reports chills and constipation. Denies fevers, CP/SOB, diarrhea. At its worse he rates his pain an 8-9/10 mostly in sacral region that intermittently radiates down his legs R>L. Allergies Allergy/AdvReac Type Severity Reaction Status Date / Time Penicillins Allergy Mild Rash Verified 06/15/23 22:14 Sulfa (Sulfonamide Allergy Mild Rash Verified 06/15/23 22:14 Antibiotics) clindamycin AdvReac Mild upset Verified 06/15/23 22:14 stomach Home Medications Medication Instructions Recorded Confirmed Type ascorbic acid (vitamin C) 500 mg 500 mg PO QAM 03/03/23 06/15/23 History chewable tablet (Vitamin C) aspirin 81 mg tablet 81 mg PO QAM 03/03/23 06/15/23 History calcium phosphate 250 mg-vitamin 1 tab PO BID 03/03/23 06/15/23 History D3 10 mcg (400 unit) chewable tablet (Caltrate Gummy Bites) diclofenac sodium 75 mg 75 mg PO QAM 03/03/23 06/15/23 History tablet,delayed release ezetimibe 10 mg tablet (Zetia) 10 mg PO QAM 03/03/23 06/15/23 History metoprolol tartrate 37.5 mg tablet 37.5 mg PO BID 03/03/23 06/15/23 History mirabegron 50 mg tablet,extended 50 mg PO QAM 03/03/23 06/15/23 History release 24 hr (Myrbetriq) rosuvastatin 40 mg tablet 40 mg PO HS 03/03/23 06/15/23 History tamsulosin 0.4 mg capsule 0.4 mg PO QAM 03/03/23 06/15/23 History duloxetine 30 mg capsule,delayed 30 mg PO QAM 04/09/23 06/15/23 History release (Cymbalta) sodium chloride 0.65 % nasal spray 2 spray intranasal BID PRN 04/09/23 06/15/23 History aerosol (Saline Nasal) Congestion Patient History Medical History CAD (coronary artery disease) s/p CABG x2 (2021) Aortic stenosis Echo 01/2022: Mild aortic stenosis Arthritis History of prostate cancer 2017, radiation with seeds implants Low iron Pulmonary embolism 2011- fell hiking in [place], blood clot developed postop surgery to repair fracture, blood thinners discontinued (was on for short period of time) Hypertension Hyperlipidemia History of COVID-19 Dx 03/03/23 ([place])- cough > resolved Sleep apnea No device Surgical History History of anesthesia reaction slow to wake up History of excision of pilonidal cyst History of carpal tunnel release R/L History of total knee replacement Right History of surgery on lower extremity Right fib fracture repair (+ hardware) H/O prostate biopsy History of colonoscopy History of cataract surgery R/L History of coronary artery bypass graft CABG x2 (2021) Family History Other No family history of adverse response to anesthesia Social History Smoking Status: Former smoker Tobacco Type: Cigarettes Smoking End Date: 1972; Second Hand Exposure: Yes (both parents); Do You Dip or Chew Tobacco: No; Hx Alcohol Use: Yes Alcohol type: wine Hx Substance Use: No Preferred Language: Occitan Communication Ability: Effective Electrician'S Helper Required: No Beliefs That Will Affect Care: None Current Living Situation: Spouse Feels Safe at Home: Yes Safety Concerns: Feels Safe At This Time Assistive Devices: Crutches, Glasses and Walker Assistive Devices Comment: reading glasses Review of Systems 2 Constitutional: + chills; no fever Respiratory: no dyspnea Cardiovascular: no chest pain Gastrointestinal: + constipation; no nausea and no vomitin g Musculoskeletal: pain in sacral region radiates down legs Integumentary: pain and drainage from surgical wound Physical Exam Physical Exam: awake/alert, no distress, lying on R side in bed Constitutional: well developed and well nourished Respiratory: normal respiratory effort Gastrointestinal (Abdomen): sacral wound evaluated, healing from 2ndary intention, in the surgical bed there is purulent drainage with two areas that could appear to be opening, tenderness to palpation, singular blue stitch in place. tender to palpation, some surrounding erythema Results & Data Vital Signs (Past 12 Hours) Vital Signs Temp Pulse Resp BP BP Pulse Ox O2 Del Method 06/16/23 07:48 36.6 C 73 16 114/64 94 Room Air 06/16/23 01:51 37.2 C 71 16 130/73 96 Room Air 06/16/23 01:30 Room Air 06/15/23 23:44 85 18 138/71 94 Room Air Diagnostic Findings Exam(s): CT PELVIS With Contrast IV Amt: 82 ml optiray 320 EXAM: CT Pelvis With Intravenous Contrast CLINICAL HISTORY: Reason for exam: r/o fracture. TECHNIQUE: Axial computed tomography images of the pelvis with intravenous contrast. CTDI is 27.51 mGy and DLP is 730.15 mGy-cm. Automated exposure control was utilized for the study. A dose lowering technique was utilized adhering to the principles of ALARA. CONTRAST: Patient received 82 ml optiray 320 of IV contrast COMPARISON: CT lumbar spine 06/15/2023. FINDINGS: Bowel: Colonic diverticulosis. No obstruction. No mucosal thickening. Appendix: No findings to suggest acute appendicitis. Intraperitoneal space: Unremarkable. No free air. No significant fluid collection. Bladder: Unremarkable. No mass. Reproductive: Fiducials in the prostate gland. Bones/joints: See below. Soft tissues: There appears to be a sacral decubitus ulcer or potentially pilonidal cyst with associated subcutaneous fat stranding and skin thickening. There also appears to be erosion of the sacrum. Vasculature: Atherosclerotic calcification the abdominal aorta and branches. No lower abdominal aortic aneurysm. Lymph nodes: Unremarkable. No enlarged lymph nodes. IMPRESSION: 1. Findings may represent a sacral decubitus ulcer or pilonidal cyst with associated subcutaneous fat stranding and skin thickening concerning for cellulitis. There also appears to be associated erosion of the sacrum concerning for osteomyelitis. Recommend direct visualization. Consider evaluation with dedicated MRI of the sacrum as clinically warranted. 2. Colonic diverticulosis. Communications: Call Doctor Osteomyelitis (if unsuspected) Call Doctor Above results Electronically signed by: Jayson Landeros MD 06/15/23 21:35 PM PG Care Time/CCT Total # of Minutes Spent Total Time Spent with Patient: Total time spent is greater than 50% in coordination of care (as documented) at patient's floor/unit and/or counseling patient: Coding Level of Care Code 01331 INT INP/OBS CARE MIN Diagnoses Sacral osteomyelitis M46.28 Pilonidal disease L98.8
[2023-06-16] MEDS ORDERED: VANCOMYCIN HCL 1,000 MG in SODIUM CHLORIDE 0.9% 250 ML IV SCH (12:00)
[2023-06-16] MEDS: GADOBUTROL 65ML VIAL IV ONE (13:40)
--- NOTE | 2023-06-16 14:47 | Magnetic Resonance Report ---
MR pelvis wo/w con HISTORY: back pain. sacral osteomyelitis? TECHNIQUE: Multiplanar multisequence MRI of the sacrum/coccyx was performed both before and after the intravenous administration of 9.5 cc of Gadavist. COMPARISON STUDY: Pelvis CT 06/15/2023. FINDINGS: The posterior elements at the S4 and S5 appear to be absent/eroded. There is abnormal signa l intensity enhancement at the sacrococcygeal junction. Therefore, these findings most likely represe nt an osteomyelitis. Small fluid tract extending to this location which may represent residual postop erative change, small fistula, or the residual pilonidal cyst. There is edema and enhancement within the soft tissues posterior to the sacrum/coccyx as well as mild presacral enhancement. This suggests an underlying cellulitis. IMPRESSION: 1. The posterior elements at the S4 and S5 appear to be absent/eroded. There is also abnormal signal intensity enhancement at the sacrococcygeal junction. Therefore, these findings most likely represent s an osteomyelitis. 2. Small fluid tract extending to this area of suspected osteomyelitis which may represent postoperat kaushik change, a small fistula, or the residual pilonidal cyst. 3. Edema and enhancement surrounding the sacrococcygeal junction suggestive of an underlying cellulit is. ACT 112: Negative or not required by law. Electronically signed by: Justin Johnson M.D. 06/16/2023 2:45 PM
--- NOTE | 2023-06-16 15:26 | Magnetic Resonance Report ---
MR lumbar spine wo/w con CLINICAL HISTORY: 78 years-old Male with back pain. sacral osteo?. Acute low back pain COMPARISON: MRI pelvis of same day, CT lumbar spine 06/15/2023. TECHNIQUE: Multiplanar, multi sequence MRI of the lumbar spine was performed with and without the use of IV contrast. FINDINGS: Substation Operator Transforming localizer images demonstrate no gross extraspinal abnormality. Conus medullaris termi nates at T12. Probable 2 cm sebaceous cyst within the superficial subcutaneous tissues superficial to T12. No acute fracture, subluxation, marrow replacing process or bony erosion identified within the lumbar spine. Subcutaneous and deep tissue edema of the lower pelvis superficial to the sacrum with e aquilino within the lower lumbosacral paraspinal tissues. No evidence of lumbar discitis/osteomyelitis. T12-L1: Mild intervertebral disc space narrowing and spondylotic spurring. Ligamentum flavum thicken ing with mild to moderate facet arthrosis. No central canal or neural foraminal stenosis. L1-L2: Mild intervertebral disc space narrowing with disc desiccation. Spondylotic spurring with cir cumferential annular disc bulging. Posterior annular fissure with 9 mm left paracentral disc protrusi on on image 4 series 6. Mild left lateral recess narrowing. The central canal and neural foramen are patent. Ligamentum flavum thickening with moderate facet arthrosis. L2-L3: Mild to moderate intervertebral disc space narrowing with associated spondylotic spurring and circumferential annular disc bulge. Ligamentum flavum thickening with moderate facet arthrosis. Cent ral canal is patent. Mild narrowing of the lateral recesses. Mild bilateral foraminal stenosis. L3-L4: Moderate intervertebral disc space narrowing and spondylotic spurring with posterior disc ost eophyte complex. Ligamentum flavum thickening with moderate facet arthrosis. Central canal is patent. Mild narrowing of the lateral recesses. Mild to moderate bilateral foraminal stenosis. L4-L5: Moderate intervertebral disc space narrowing. Spondylotic spurring with small circumferential annular disc bulge. Ligamentum flavum thickening with moderate to severe facet arthrosis. Central ca nal is patent. Mild narrowing of the lateral recesses. Mild to moderate right with moderate left fora holly narrowing. L5-S1: Mild intervertebral disc space narrowing with spondylotic spurring and small circumferential annular disc bulge. Ligamentum flavum thickening with severe facet arthrosis. Central canal is patent . Mild bilateral foraminal narrowing. IMPRESSION: 1. No evidence of acute lumbar discitis/osteomyelitis, acute fracture, subluxation or marrow edema. 2. Discogenic degeneration with spondylotic spurring and facet arthrosis as above. No high-grade cent ral canal or foraminal narrowing. 3. Please refer to the MR pelvis of same day for discussion of the sacrococcygeal osteomyelitis with decubitus ulcer. ACT 112: Negative or not required by law. The above report was generated using voice recognition software. It may contain grammatical, syntax o r spelling errors. Dictated: 06/16/2023 2:12 PM Transcribed: 06/16/2023 2:28 PM Aggie [id number] MARCIA_Ron [id number] Electronically signed by: Jeremías Esposito M.D. 06/16/2023 3:25 PM
--- NOTE | 2023-06-16 16:31 | Infectious Disease Consult ---
Date of Service June 16, 2023 Telehealth Information I performed this visit using a real-time telehealth connection between my location and the patients location ([facility]). After connecting through interactive tele-video, patient was identified by name and date of and/or wristband check.Patient (or authorized healthcare key account representative) was informed that this was a telemedicine visit and it was being conducted confidentially over secure lines. My office door was closed and no one else was present in the room with me.Patient (or authorized healthcare key account representative) provided consent to proceed with the visit, expressed an understanding of privacy and security of the telemedicine visit, and gave permission to have a hospital key account representative in the room in order to assist with the visit and to conduct portions of the visit, as needed. I informed the patient (or authorized healthcare key account representative) that I reviewed their record and presented the opportunity for them to ask any questions regarding the visit today. The patient agreed to participate. Assessment & Plan (1) Sacral osteomyelitis: Plan: Sacral osteomyelitis suggested on pelvic CT. Given the timeline of roughly 6 weeks with no healing, clinically this seems likely. An MRI is suggested to help clarify. If so, then we will need some local debridement and cultures to guide therapy. Empiric treatment is not recommended. Ideally would hold abx for now while awaiting surgical intervention. No signs of sepsis (no fever, leukocytosis, HD instability, etc). Plan Final abx plans remain pending. Following with you. History of Present Illness History of Present Illness Mr. Kiser is a 78yo male admitted to [facility] on 06/15/23 for persistent wound on his sacrum and concerns for sacral osteomyelitis. He underwent pilonidal cyst excision on 04/20/23. Since then he has shown poor wound healing and increasing pain with some drainage and erythema. He had a CT scan obtained as an outpatient that showed some sacrum erosions concerning for osteomyelitis and so he was admitted to [facility] for further evaluation. He denies any fevers, chills or sweats. No N/V or diarrhea. He has only pain which is improved since admission and pain control. Allergies Allergy/AdvReac Type Severity Reaction Status Date / Time Penicillins Allergy Mild Rash Verified 06/15/23 22:14 Sulfa (Sulfonamide Allergy Mild Rash Verified 06/15/23 22:14 Antibiotics) clindamycin AdvReac Mild upset Verified 06/15/23 22:14 stomach Home Medications Medication Instructions Recorded Confirmed Type ascorbic acid (vitamin C) 500 mg 500 mg PO QAM 03/03/23 06/15/23 History chewable tablet (Vitamin C) aspirin 81 mg tablet 81 mg PO QAM 03/03/23 06/15/23 History calcium phosphate 250 mg-vitamin 1 tab PO BID 03/03/23 06/15/23 History D3 10 mcg (400 unit) chewable tablet (Caltrate Gummy Bites) diclofenac sodium 75 mg 75 mg PO QAM 03/03/23 06/15/23 History tablet,delayed release ezetimibe 10 mg tablet (Zetia) 10 mg PO QAM 03/03/23 06/15/23 History metoprolol tartrate 37.5 mg tablet 37.5 mg PO BID 03/03/23 06/15/23 History mirabegron 50 mg tablet,extended 50 mg PO QAM 03/03/23 06/15/23 History release 24 hr (Myrbetriq) rosuvastatin 40 mg tablet 40 mg PO HS 03/03/23 06/15/23 History tamsulosin 0.4 mg capsule 0.4 mg PO QAM 03/03/23 06/15/23 History duloxetine 30 mg capsule,delayed 30 mg PO QAM 04/09/23 06/15/23 History release (Cymbalta) sodium chloride 0.65 % nasal spray 2 spray intranasal BID PRN 04/09/23 06/15/23 History aerosol (Saline Nasal) Congestion Patient History Medical History CAD (coronary artery disease) s/p CABG x2 (2021) Aortic stenosis Echo 01/2022: Mild aortic stenosis Arthritis History of prostate cancer 2017, radiation with seeds implants Low iron Pulmonary embolism 2011- fell hiking in [place], blood clot developed postop surgery to repair fracture, blood thinners discontinued (was on for short period of time) Hypertension Hyperlipidemia History of COVID-19 Dx [place]/03/23 ([place] cough > resolved Sleep apnea No device Surgical History History of anesthesia reaction slow to wake up History of excision of pilonidal cyst History of carpal tunnel release R/L History of total knee replacement Right History of surgery on lower extremity Right fib fracture repair (+ hardware) H/O prostate biopsy History of colonoscopy History of cataract surgery R/L History of coronary artery bypass graft CABG x2 (2021) Family History Other No family history of adverse response to anesthesia Social History Smoking Status: Former smoker Tobacco Type: Cigarettes Smoking End Date: 1972; Second Hand Exposure: Yes (both parents); Do You Dip or Chew Tobacco: No; Hx Alcohol Use: Yes Alcohol type: wine Hx Substance Use: No Preferred Language: Georgian Communication Ability: Effective Head School Custodian Required: No Beliefs That Will Affect Care: None Current Living Situation: Spouse Feels Safe at Home: Yes Safety Concerns: Feels Safe At This Time Assistive Devices: Crutches, Glasses and Walker Assistive Devices Comment: reading glasses Review of Systems Gen-- No fevers HEENT- No CHAIREZ, sore throat Resp- No SOB or cough CV- No chest pain or LE edema GI- No N/V or diarrhea - No dysuria MSK- low back and sacral pain as per HPI Derm- No rashes Neuro- No focal deficits Physical Exam Gen- NAD, cooperative with exam HEENT- NC AT Lungs- Normal respiratory rate on RA MSK- Sacral wound with minimal surrounding erythema. Some purulent drainage noted. Skin- No rash Neuro- Alert and oriented Results & Data Vital Signs (Past 12 Hours) Vital Signs Temp Pulse Resp BP Pulse Ox O2 Del Method 06/16/23 14:06 36.6 C 66 16 127/71 93 Room Air 06/16/23 07:48 36.6 C 73 16 114/64 94 Room Air Laboratory Results WBC 9.36 Hgb 11.2 Platelets 250 Na 138 Creatinine 0.8 BUN 22 Alk Phos [address] reviewed: Soft tissue defect with associated stranding around an oipen wound with sacral erosions concerning for osteomyelitis
--- NOTE | 2023-06-16 16:31 | Hospitalist Progress Note ---
Date of Service June 16, 2023 Assessment & Plan (1) Sacral osteomyelitis: Plan: 78-year-old male with past medical history significant for prediabetes, hyperlipidemia, obstructive sleep apnea not using CPAP, mild aortic stenosis, CAD s/p CABG, history of prostate cancer, history of pulmonary embolism who presents with severe back pain and CAT scan showing possible sacral osteomyelitis. Patient had pilonidal cyst surgery on April 21, 2023. Sacral osteomyelitis History of pilonidal surgery on April 21, 2023 History of pilonidal cyst surgery in April. Reported pain around the surgical site. Pelvis CT showed possible sacral osteomyelitis. Pelvic MRI shows absent/eroded the posterior segment of S4 and S5. Abnormal signal intensity enhancement at sacrococcygeal junction; likely represents an osteomyelitis. Discussed with infectious disease; he recommended surgical evaluation with bone biopsy to confirm osteomyelitis. Infectious disease recommended holding off on antibiotics till surgical evaluation is done and bone biopsies obtained. Discussed with surgery; Dr. Quarles to evaluate the patient tomorrow and give recommendation. Will keep him n.p.o. from midnight for any possible procedure. Continue pain control. Obstructive sleep apnea Not using CPAP CAD s/p CABG On beta-emily, Zetia, aspirin and statin Hyperlipidemia On statin History of prostate cancer S/p brachytherapy and LHRH therapy On Flomax and Myrbetriq Follows with urology History of mild aortic stenosis DVT prophylaxis Lovenox Disposition Medical floor Discussed plan of care with patient and patient's . Answer questions /queries Full code Time spent evaluating patient, direct bedside care, chart review, placing orders, interpretation of diagnostic studies, discussion with consultants, patient, and family members, as well as other required patient management activities is 50 minutes Please note the above document was generated using voice recognition software. It may contain grammatical, syntax or spelling errors. Any formal questions or concerns about the content, text or information contained within the body of this dictation should be directly addressed to the provider for clarification Admission and Anticipated Discharge Date Admission Date: June 15, 2023 Subjective Patient seen and examined at bedside. He reports pain in his lower back at the surgical site. He denies fever, chills, chest pain, shortness of breath or abdominal pain. Review of Systems Review of Systems: All systems reviewed & are unremarkable except as noted in Subjective Physical Exam Physical Exam: Constitutional: WD/WN, vitals as above, NAD, sitting up in bed, pleasant, conversing easily Respiratory: normal respiratory effort, lungs clear to auscultation, no wheeze, rales, rhonchi. Normal insp/exp effort, no accessory muscle use Cardiovascular: RRR, no murmur, no edema Vessels: no JVD or carotid bruit Chest: normal inspection of chest Abdomen: normal bowel sounds, soft, nontender, no hepatosplenomegaly Musculoskeletal: Open wound with purulent discharge in sacrum; surrounding erythema and swelling present. Skin: no rashes, warm and dry normal turgor Neurologic: PERRL, EOMI, accommodation nl, no face palsy, no dysarthria CN's II- XI intact bilaterally and moves all extremities Psychiatric: A+Ox3, euthymic affect Results & Data Results & Data Vital Signs (Past 12 Hours) Vital Signs Temp Pulse Resp BP Pulse Ox O2 Del Method 06/16/23 14:06 36.6 C 66 16 127/71 93 Room Air 06/16/23 07:48 36.6 C 73 16 114/64 94 Room Air
[2023-06-16] MEDS: ROSUVASTATIN CALCIUM 20 MG TAB PO SCH (20:40)
[2023-06-16] MEDS: POLYETHYLENE (MIRALAX) 17 GM PACK PO PRN (23:05)
[2023-06-17 07:31] LABS: Basophils # (auto) 0.04 K/uL (0.00-0.20); Basophils % (auto) 0.5 %; Eosinophils # (auto) 0.14 K/uL (0.00-0.50); Eosinophils % (auto) 1.6 %; Hematocrit (blood only) 33.8 % (42.0-52.0); Hemoglobin 10.8 g/dl (14.0-18.0); Immature Granulocytes # (auto) 0.04 K/uL (0.01-0.20); Immature Granulocytes % (auto) 0.5 %; Lymphocytes # (auto) 0.92 K/uL (1.20-3.40); Lymphocytes % (auto) 10.5 %; Mean Corpuscular Volume 87.6 fL (80.0-100.0); Mean Platelet Volume 8.5 fL (9.4-12.4); Monocytes # (auto) 0.96 K/uL (0.11-0.59); Neutrophils # (auto) 6.65 K/uL (1.40-6.50); Neutrophils % (auto) 75.9 %; Platelet Count 230 K/uL (130-400); RDW Coefficient of Variation 16.4 % (11.5-14.5); RDW Standard Deviation 52.4 fL (36.4-46.3); Red Blood Count 3.86 M/uL (4.70-6.10); White Blood Count 8.75 K/ul (4.8-10.8)
[2023-06-17 07:47] LABS: BUN Creatinine Ratio 26.3 (10-20); C Reactive Protein 3.55 mg/dl (0-0.5); Calcium 9.3 mg/dl (8.6-10.3); Creatinine Clr Calc Pharmacy 87.9 ml/min; Est GFR (African American) 101.3 ml/min; Est GFR (Non-African American) 87.4 ml/min; Potassium 4.3 mmol/L (3.5-5.1)
[2023-06-17] MEDS: oxyCODONE HCL IR 5 MG TAB (IMMEDIATE RELEASE) PO PRN (08:01)
--- NOTE | 2023-06-17 14:04 | Surgery Progress Note ---
Date of Service June 17, 2023 Assessment & Plan (1) Sacral osteomyelitis: Plan: I have never seen osteo in post-op pilonidal wound would refer to ortho and ID specialist at tertiary center to manage wound, as I have educational diagnostician in treating this type of wound will be glad to see after treatment strategy in place and executed for wound evaluation appt in my clinic once wound treatment plan in place Admission and Anticipated Discharge Date Admission Date: June 15, 2023 Subjective c/o pain in sacral region near wound Physical Exam Skin: sacral wound with granulation and slough; minimal erythema Results & Data Vital Signs (Past 12 Hours) Vital Signs Temp Pulse Resp BP Pulse Ox O2 Del Method 06/17/23 07:32 36.5 C 67 18 113/71 92 Room Air Diagnostic Findings MR pelvis wo/w con HISTORY: back pain. sacral osteomyelitis? TECHNIQUE: Multiplanar multisequence MRI of the sacrum/coccyx was performed both before and after the intravenous administration of 9.5 cc of Gadavist. COMPARISON STUDY: Pelvis CT 06/15/2023. FINDINGS: The posterior elements at the S4 and S5 appear to be absent/eroded. There is abnormal signal intensity enhancement at the sacrococcygeal junction. Therefore, these findings most likely represent an osteomyelitis. Small fluid tract extending to this location which may represent residual postoperative change, small fistula, or the residual pilonidal cyst. There is edema and enhancement within the soft tissues posterior to the sacrum/coccyx as well as mild presacral enhancement. This suggests an underlying cellulitis. IMPRESSION: 1. The posterior elements at the S4 and S5 appear to be absent/eroded. There is also abnormal signal intensity enhancement at the sacrococcygeal junction. Therefore, these findings most likely represents an osteomyelitis. 2. Small fluid tract extending to this area of suspected osteomyelitis which may represent postoperative change, a small fistula, or the residual pilonidal cyst. 3. Edema and enhancement surrounding the sacrococcygeal junction suggestive of an underlying cellulitis.
--- NOTE | 2023-06-17 19:46 | Discharge Summary ---
Discharge Summary Date of Service June 17, 2023 Notes For Next Care Provider Pt transferred for percutaneous IR bone biopsy and culture in the setting of sacrococcygeal osteomyelitis Medication Changes From Visit See med rec below Admission HPI Per Admitting Provider 78-year-old male with past medical history significant for prediabetes, hyperlipidemia, obstructive sleep apnea not using CPAP, mild aortic stenosis, CAD s/p CABG, history of prostate cancer, history of pulmonary embolism who presents with severe back pain and CAT scan showing possible sacral osteomyelitis. Patient had pilonidal cyst surgery on April 21, 2023. Started having low back pain end of April and radiating down to both legs constant pain moderate to severe in severity. He is having difficulty ambulating because of pain. Saw surgery in follow-up and was thought his current problem is not from the procedure. He is constipated. No bowel incontinence. Since his prostate surgery has some bladder issues controlled with medications. But lately is having more urgencies of the urine. Sensations intact. No fevers. No abdominal pain. No chest pain or shortness of breath. Has mild cough. Occasional runny nose. No sore throat. Vision is okay. Appetite is okay. Hemodynamics are stable. Past medical history. As mentioned above Past surgical history. Right ankle arthroscopy. Knee arthroscopy. CABG. Social history. . Quit smoking 1974. Alcohol glass of wine about once a month. No drug use. Family history. Father had alcoholism. Mother had heart failure. Sister had diabetes. Sister had heart failure. Maternal grandmother had diabetes. Admission Exam Per Admitting Provider General-Not in distress Head- atraumatic Eyes- PERRL. ENT- oropharynx clear Neck- supple, no JVD. Lungs- clear to auscultation no wheezing or crackles. Heart- regular rhythm; esm in aortic area., no gallop. Abdomen- normal bowel sounds, soft, nontender, no distension. Extremities- no pretibial edema, no erythema seen. Neuro- alert, oriented x 3; PERRL, no facial palsy; no dysarthria; moves extremities. Skin- sacral open wound with mild drainage seen Principal Dx & Hospital Course #1 = Principal Diagnosis (1) Sacral osteomyelitis: (2) Pilonidal disease: Plan 78-year-old male with past medical history significant for prediabetes, hyperlipidemia, obstructive sleep apnea not using CPAP, mild aortic stenosis, CAD s/p CABG, history of prostate cancer, history of pulmonary embolism who presents with severe back pain and CAT scan showing possible sacral osteomyelitis. Patient had pilonidal cyst surgery removal on April 20, 2023. Sacrococcygeal osteomyelitis History of pilonidal surgery on April 20, 2023 Reported pain around the surgical site. Pelvis CT showed possible sacral osteomyelitis. Pelvic MRI shows absent/eroded posterior segment of S4 and S5. Abnormal signal intensity enhancement at sacrococcygeal junction; likely represents an osteomyelitis. Discussed with infectious disease; recommended surgical evaluation with bone biopsy to confirm osteomyelitis. Infectious disease recommended holding off on antibiotics till surgical evaluation is done and bone biopsies obtained. Discussed with surgery; Dr. Quarles who originally recommended orthopedics and orthopedic spine surgery evaluation- both services at [facility] stated that they had nothing to add. Case discussed once more with Dr Quarles who recommended the following: "...would refer to ortho and ID specialist at tertiary center to manage wound..." Per pt and , desirous of transfer to [facility]. [facility] agreeable to transfer for IR percutaneous bone biopsy and culture in the setting of sacrococcygeal osteomyelitis. Continue pain control- pt found relief with oxycodone 5mg q6h added to IV dilaudid 0.5mg q4h. No antibiotics per recs of ID until biopsy and cultures obtained. Obstructive sleep apnea Not using CPAP CAD s/p CABG On beta-emily, Zetia, aspirin and statin, continue Hyperlipidemia On statin History of prostate cancer S/p brachytherapy and LHRH therapy On Flomax and Myrbetriq Follows with urology History of mild aortic stenosis Stable Hx of PE Postop in 2011 Completed treatment at that time Discharge Exam General: Alert, oriented. No acute distress Skin: sacral wound with discharge noted once uncovered Psych: Appropriate mood and affect Neuro: difficulty with lower extremity movements, strength and sensation intact HEENT: NC/AT Chest: Nontender to palpation. CV: RRR, Normal s1, s2. No murmurs appreciated Resp: Breath sounds clear bilaterally, no increased effort of breathing. No crackles/rhonchi/rales. Abdomen: Soft, nontender Extremities: No edema in lower extremities bilaterally. Updated Medication List Medication Instructions Recorded Confirmed Type ascorbic acid (vitamin C) 500 mg 500 mg PO QAM 03/03/23 06/15/23 History chewable tablet (Vitamin C) aspirin 81 mg tablet 81 mg PO QAM 03/03/23 06/15/23 History calcium phosphate 250 mg-vitamin 1 tab PO BID 03/03/23 06/15/23 History D3 10 mcg (400 unit) chewable tablet (Caltrate Gummy Bites) diclofenac sodium 75 mg 75 mg PO QAM 03/03/23 06/15/23 History tablet,delayed release ezetimibe 10 mg tablet (Zetia) 10 mg PO QAM 03/03/23 06/15/23 History metoprolol tartrate 37.5 mg tablet 37.5 mg PO BID 03/03/23 06/15/23 History mirabegron 50 mg tablet,extended 50 mg PO QAM 03/03/23 06/15/23 History release 24 hr (Myrbetriq) rosuvastatin 40 mg tablet 40 mg PO HS 03/03/23 06/15/23 History tamsulosin 0.4 mg capsule 0.4 mg PO QAM 03/03/23 06/15/23 History duloxetine 30 mg capsule,delayed 30 mg PO QAM 04/09/23 06/15/23 History release (Cymbalta) sodium chloride 0.65 % nasal spray 2 spray intranasal BID PRN 04/09/23 06/15/23 History aerosol (Saline Nasal) Congestion Additional Medication Comments Current Inpatient Medications Acetaminophen (Acetaminophen 325 Mg Tab) 650 mg PO Q4H PRN PRN Reason: pain/fever Stop: 07/16/23 01:47 Last Admin: 06/16/23 02:51 Dose: 650 mg Ascorbic Acid (Ascorbic Acid 500 Mg Tab) [facility] [place] Stop: 07/16/23 08:59 Last Admin: 06/17/23 08:10 Dose: 500 mg Aspirin (Aspirin 81 Mg Ectab) 81 [facility] [place] Stop: 07/16/23 08:59 Last Admin: 06/17/23 08:10 Dose: 81 mg Calcium/Vitamin D (Calcium 600mg + Vit D 400 Iu Tab) 1 tab PO BID [facility] Stop: 07/16/23 08:59 Last Admin: 06/17/23 08:05 Dose: 1 tab Duloxetine HCl (Duloxetine Hcl 30 Mg Cap) 30 [facility] [place] Stop: 07/16/23 08:59 Last Admin: 06/17/23 08:10 Dose: 30 mg Ezetimibe (Ezetimibe 10 Mg Tab) 10 mg PO HS [facility] Stop: 07/16/23 20:59 Last Admin: 06/16/23 20:39 Dose: 10 mg Enoxaparin Sodium (Enoxaparin Inj 40 Mg/0.4 Ml Syr) 40 mg SQ Q24H [facility] Stop: 07/16/23 08:59 Last Admin: 06/17/23 08:07 Dose: 40 mg Hydromorphone HCl (Hydromorphone Inj 0.5 Mg/0.5 Ml Syr) 0.5 mg IV Q4H PRN PRN Reason: Pain Stop: 06/30/23 04:51 Last Admin: 06/16/23 20:09 Dose: 0.5 mg Metoprolol Tartrate (Metoprolol Tartrate 25 Mg Tab) 37.5 mg PO BID [facility] Stop: 07/16/23 08:59 Last Admin: 06/17/23 08:05 Dose: 37.5 mg Oxycodone HCl (Oxycodone Hcl Ir 5 Mg Tab (Immediate Release)) 5 mg PO Q6H PRN PRN Reason: Moderate Pain (Scale 4, 5, 6) Stop: 06/30/23 23:05 Last Admin: 06/17/23 14:06 Dose: 5 mg Polyethylene Glycol (Polyethylene (Miralax) 17 Gm Pack) 17 gm PO DAILY PRN PRN Reason: Constipation Stop: 07/16/23 01:47 Last Admin: 06/16/23 23:05 Dose: 17 gm Rosuvastatin Calcium (Rosuvastatin Calcium 20 Mg Tab) 40 mg PO HS [facility] Stop: 07/16/23 20:59 Last Admin: 06/16/23 20:40 Dose: 40 mg Sodium Chloride (Sodium Chloride 0.65% Na Soln 45 Ml ([place])) 2 sprays NA BID PRN PRN Reason: Congestion Stop: 07/16/23 01:47 Tamsulosin HCl (Tamsulosin Hcl 0.4 Mg Cap) 0.4 mg PO [facility] Stop: 07/16/23 20:59 Last Admin: 06/16/23 20:40 Dose: 0.4 mg Vibegron (Vibegron 75 Mg Tab) 75 mg PO DAILY [facility] Stop: 07/16/23 08:59 Last Admin: 06/17/23 08:09 Dose: 75 mg Hospital Stay Data Consultations 06/15/23 22:13 ED Decision to Admit Stat 06/16/23 09:00 Consult Infectious Diseases Routine 06/16/23 10:08 Consult General Surgery Routine 06/17/23 10:57 Consult Orthopedic Surgery Routine 06/17/23 12:29 Consult Orthopedic Spine Surgery Routine Diagnostic Imagining Performed 06/15/23 18:06 CT lumbar spine w con Stat 06/15/23 20:46 CT pelvis w/IV con only Stat 06/16/23 01:48 MRI Lumbar Spine [MR lumbar spine wo/w con] Urgent MRI Pelvis [MR pelvis wo/w con] Urgent Lumbar Spine CT 06/15/23 18:06 Exam(s): CT L SPINE With Contrast IV Amt: 80 ml optiray 320 EXAM: CT Lumbar Spine With Intravenous Contrast CLINICAL HISTORY: Reason for exam: TTP spinous process, radiation of pain. TECHNIQUE: Axial computed tomography images of the lumbar spine with intravenous contrast. Automated exposure control was utilized for the study. A dose lowering technique was utilized adhering to the principles of ALARA. CONTRAST: Patient received 80 ml optiray 320 of IV contrast COMPARISON: None. FINDINGS: Vertebrae: No lumbar spine fracture. Discs/spinal canal/neural foramina: Degenerative change in the sacroiliac joints. Left central/subarticular calcified disc protrusion at L1-L2 with caudal migration. Disc bulges with endplate osteophytes and facet arthrosis throughout the lumbar spine. No high-grade spinal canal stenosis. There are varying degrees of foraminal narrowing throughout the lumbar spine. Soft tissues: Nonspecific dorsal subcutaneous fat stranding overlying the visualized sacrum. Vasculature: Atherosclerotic calcifications in the abdominal aorta and branches. Stomach and bowel: Colonic diverticulosis. IMPRESSION: 1. No acute fracture or traumatic malalignment of the lumbar spine. 2. Nonspecific dorsal subcutaneous fat stranding overlying the visualized sacrum. This could potentially be seen in with a sacral fracture or contusion, incompletely evaluated on this examination. Consider evaluation with dedicated CT of the pelvis as clinically warranted. 3. Moderate to severe degenerative change of the lumbar spine. Consider evaluation with MRI as clinically warranted. Electronically signed by: Jayson Landeros MD 06/15/23 20:[address] 06/15/23 20:46 CR Exam(s): CT PELVIS With Contrast IV Amt: 82 ml optiray 320 EXAM: CT Pelvis With Intravenous Contrast CLINICAL HISTORY: Reason for exam: r/o fracture. TECHNIQUE: Axial computed tomography images of the pelvis with intravenous contrast. CTDI is 27.51 mGy and DLP is 730.15 mGy-cm. Automated exposure control was utilized for the study. A dose lowering technique was utilized adhering to the principles of ALARA. CONTRAST: Patient received 82 ml optiray 320 of IV contrast COMPARISON: CT lumbar spine 06/15/2023. FINDINGS: Bowel: Colonic diverticulosis. No obstruction. No mucosal thickening. Appendix: No findings to suggest acute appendicitis. Intraperitoneal space: Unremarkable. No free air. No significant fluid collection. Bladder: Unremarkable. No mass. Reproductive: Fiducials in the prostate gland. Bones/joints: See below. Soft tissues: There appears to be a sacral decubitus ulcer or potentially pilonidal cyst with associated subcutaneous fat stranding and skin thickening. There also appears to be erosion of the sacrum. Vasculature: Atherosclerotic calcification the abdominal aorta and branches. No lower abdominal aortic aneurysm. Lymph nodes: Unremarkable. No enlarged lymph nodes. IMPRESSION: 1. Findings may represent a sacral decubitus ulcer or pilonidal cyst with associated subcutaneous fat stranding and skin thickening concerning for cellulitis. There also appears to be associated erosion of the sacrum concerning for osteomyelitis. Recommend direct visualization. Consider evaluation with dedicated MRI of the sacrum as clinically warranted. 2. Colonic diverticulosis. Communications: Call Doctor Osteomyelitis (if unsuspected) Call Doctor Above results Electronically signed by: Jayson Landeros MD 06/15/23 21:35 PM Lumbar Spine MRI 06/16/23 01:48 MR lumbar spine wo/w con CLINICAL HISTORY: 78 years-old Male with back pain. sacral osteo?. Acute low back pain COMPARISON: MRI pelvis of same day, CT lumbar spine 06/15/2023. TECHNIQUE: Multiplanar, multi sequence MRI of the lumbar spine was performed with and without the use of IV contrast. FINDINGS: Industrial Hygiene Engineer localizer images demonstrate no gross extraspinal abnormality. Conus medullaris terminates at T12. Probable 2 cm sebaceous cyst within the superficial subcutaneous tissues superficial to T12. No acute fracture, subluxation, marrow replacing process or bony erosion identified within the lumbar spine. Subcutaneous and deep tissue edema of the lower pelvis superficial to the sacrum with edema within the lower lumbosacral paraspinal tissues. No evidence of lumbar discitis/osteomyelitis. T12-L1: Mild intervertebral disc space narrowing and spondylotic spurring. Ligamentum flavum thickening with mild to moderate facet arthrosis. No central canal or neural foraminal stenosis. L1-L2: Mild intervertebral disc space narrowing with disc desiccation. Spondylotic spurring with circumferential annular disc bulging. Posterior annular fissure with 9 mm left paracentral disc protrusion on image 4 series 6. Mild left lateral recess narrowing. The central canal and neural foramen are patent. Ligamentum flavum thickening with moderate facet arthrosis. L2-L3: Mild to moderate intervertebral disc space narrowing with associated spondylotic spurring and circumferential annular disc bulge. Ligamentum flavum thickening with moderate facet arthrosis. Central canal is patent. Mild narrowing of the lateral recesses. Mild bilateral foraminal stenosis. L3-L4: Moderate intervertebral disc space narrowing and spondylotic spurring with posterior disc osteophyte complex. Ligamentum flavum thickening with moderate facet arthrosis. Central canal is patent. Mild narrowing of the lateral recesses. Mild to moderate bilateral foraminal stenosis. L4-L5: Moderate intervertebral disc space narrowing. Spondylotic spurring with small circumferential annular disc bulge. Ligamentum flavum thickening with moderate to severe facet arthrosis. Central canal is patent. Mild narrowing of the lateral recesses. Mild to moderate right with moderate left foraminal narrowing. L5-S1: Mild intervertebral disc space narrowing with spondylotic spurring and small circumferential annular disc bulge. Ligamentum flavum thickening with severe facet arthrosis. Central canal is patent. Mild bilateral foraminal narrowing. IMPRESSION: 1. No evidence of acute lumbar discitis/osteomyelitis, acute fracture, subluxation or marrow edema. 2. Discogenic degeneration with spondylotic spurring and facet arthrosis as above. No high-grade central canal or foraminal narrowing. 3. Please refer to the MR pelvis of same day for discussion of the sacrococcygeal osteomyelitis with decubitus ulcer. ACT 112: Negative or not required by law. The above report was generated using voice recognition software. It may contain grammatical, syntax or spelling errors. Dictated: 06/16/2023 2:12 PM Transcribed: 06/16/2023 2:28 PM Aggie [id number] Ciro [id number] Electronically signed by: Jeremías Esposito M.D. 06/16/2023 3:25 PM Pelvis MRI 06/16/23 01:48 MR pelvis wo/w con HISTORY: back pain. sacral osteomyelitis? TECHNIQUE: Multiplanar multisequence MRI of the sacrum/coccyx was performed both before and after the intravenous administration of 9.5 cc of Gadavist. COMPARISON STUDY: Pelvis CT 06/15/2023. FINDINGS: The posterior elements at the S4 and S5 appear to be absent/eroded. There is abnormal signal intensity enhancement at the sacrococcygeal junction. Therefore, these findings most likely represent an osteomyelitis. Small fluid tract extending to this location which may represent residual postoperative change, small fistula, or the residual pilonidal cyst. There is edema and enhancement within the soft tissues posterior to the sacrum/coccyx as well as mild presacral enhancement. This suggests an underlying cellulitis. IMPRESSION: 1. The posterior elements at the S4 and S5 appear to be absent/eroded. There is also abnormal signal intensity enhancement at the sacrococcygeal junction. Therefore, these findings most likely represents an osteomyelitis. 2. Small fluid tract extending to this area of suspected osteomyelitis which may represent postoperative change, a small fistula, or the residual pilonidal cyst. 3. Edema and enhancement surrounding the sacrococcygeal junction suggestive of an underlying cellulitis. ACT 112: Negative or not required by law. Electronically signed by: Justin Johnson M.D. 06/16/2023 2:45 PM Pending Results Patient Have Any Pending Studies at Discharge: No Discharge Instructions Given to Patient (Per Discharging Provider) 78-year-old male with past medical history significant for prediabetes, hyperlipidemia, obstructive sleep apnea not using CPAP, mild aortic stenosis, CAD s/p CABG, history of prostate cancer, history of pulmonary embolism who presents with severe back pain and CAT scan showing possible sacral osteomyelitis. Patient had pilonidal cyst surgery removal on April 20, 2023. Sacrococcygeal osteomyelitis History of pilonidal surgery on April 20, 2023 Reported pain around the surgical site. Pelvis CT showed possible sacral osteomyelitis. Pelvic MRI shows absent/eroded posterior segment of S4 and S5. Abnormal signal intensity enhancement at sacrococcygeal junction; likely represents an osteomyelitis. Discussed with infectious disease; recommended surgical evaluation with bone biopsy to confirm osteomyelitis. Infectious disease recommended holding off on antibiotics till surgical evaluation is done and bone biopsies obtained. Discussed with surgery; Dr. Quarles who originally recommended orthopedics and orthopedic spine surgery evaluation- both services at [facility] stated that they had nothing to add. Case discussed once more with Dr Quarles who recommended the following: "...would refer to ortho and ID specialist at tertiary center to manage wound..." Per pt and , desirous of transfer to [facility]. [facility] agreeable to transfer for IR percutaneous bone biopsy and culture in the setting of sacrococcygeal osteomyelitis. Continue pain control- pt found relief with oxycodone 5mg q6h added to IV dilaudid 0.5mg q4h. No antibiotics per recs of ID until biopsy and cultures obtained. Obstructive sleep apnea Not using CPAP CAD s/p CABG On beta-emily, Zetia, aspirin and statin, continue Hyperlipidemia On statin History of prostate cancer S/p brachytherapy and LHRH therapy On Flomax and Myrbetriq Follows with urology History of mild aortic stenosis Stable Hx of PE Postop in 2011 Completed treatment at that time Total Time Total Time Spent Total Time Spent (In Minutes): > 30 minutes
== END 2023-06-17 22:25 | disposition short-term general hospital (02) | DRG 540 ==
LOC: ED 17:15 → 3E 23:17 → SUATTDRO 23:17 → 3E 06-16 00:54

== ENCOUNTER 2023-06-19 14:43 | Inpatient (IN) ==
--- NOTE | 2023-06-19 16:12 | History & Physical Report ---
Date of Service June 19, 2023 Assessment & Plan Plan 78-year-old male with past medical history significant for prediabetes, hyperlipidemia, obstructive sleep apnea not using CPAP, mild aortic stenosis, CAD s/p CABG, history of prostate cancer, history of pulmonary embolism who presents with severe back pain and CAT scan showing possible sacral osteomyelitis. Patient had pilonidal cyst surgery removal on April 20, 2023. Was hospitalized at [facility] from 06/15/23 to 06/17/23 with concern for sacrococcygeal osteomyelitis before being transferred to [facility] for bone biopsy and cultures. Pt is being transferred back to [facility] as he had the bone biopsy and cultures done on 06/18, results pending. Sacrococcygeal osteomyelitis History of pilonidal surgery on April 20, 2023 Reported pain around the surgical site. Pelvis CT showed possible sacral osteomyelitis. Pelvic MRI shows absent/eroded posterior segment of S4 and S5. Abnormal signal intensity enhancement at sacrococcygeal junction; likely represents an osteomyelitis. Discussed with infectious disease; recommended surgical evaluation with bone biopsy to confirm osteomyelitis. Infectious disease recommended holding off on antibiotics till surgical evaluation is done and bone biopsies obtained. Discussed with surgery; Dr. Quarles who originally recommended orthopedics and orthopedic spine surgery evaluation- both services at [facility] stated that they had nothing to add. Case discussed once more with Dr Quarles who recommended the following: "...would refer to ortho and ID specialist at tertiary center to manage wound..." Per pt and , desirous of transfer to [facility]. [facility] agreeable to transfer for IR percutaneous bone biopsy and culture in the setting of sacrococcygeal osteomyelitis. Pt transferred on 06/17 and transferred back on 06/19. Resume antibiotics once back Continue pain control- pt found relief with oxycodone 5mg q6h added to IV dilaudid 0.5mg q4h. Follow biopsy and [facility] notes they will be in touch, transfer center aware as well Obstructive sleep apnea Not using CPAP CAD s/p CABG On beta-emily, Zetia, aspirin and statin, continue Hyperlipidemia On statin History of prostate cancer S/p brachytherapy and LHRH therapy On Flomax and Myrbetriq Follows with urology History of mild aortic stenosis Stable Hx of PE Postop in 2011 Completed treatment at that time History of Present Illness Primary Care Provider: Renzo Camacho MD Allergies Allergy/AdvReac Type Severity Reaction Status Date / Time Penicillins Allergy Mild Rash Verified 06/15/23 22:14 Sulfa (Sulfonamide Allergy Mild Rash Verified 06/15/23 22:14 Antibiotics) clindamycin AdvReac Mild upset Verified 06/15/23 22:14 stomach Home Medications Medication Instructions Recorded Confirmed Type ascorbic acid (vitamin C) 500 mg 500 mg PO QAM 03/03/23 06/15/23 History chewable tablet (Vitamin C) aspirin 81 mg tablet 81 mg PO QAM 03/03/23 06/15/23 History calcium phosphate 250 mg-vitamin 1 tab PO BID 03/03/23 06/15/23 History D3 10 mcg (400 unit) chewable tablet (Caltrate Gummy Bites) diclofenac sodium 75 mg 75 mg PO QAM 03/03/23 06/15/23 History tablet,delayed release ezetimibe 10 mg tablet (Zetia) 10 mg PO QAM 03/03/23 06/15/23 History metoprolol tartrate 37.5 mg tablet 37.5 mg PO BID 03/03/23 06/15/23 History mirabegron 50 mg tablet,extended 50 mg PO QAM 03/03/23 06/15/23 History release 24 hr (Myrbetriq) rosuvastatin 40 mg tablet 40 mg PO HS 03/03/23 06/15/23 History tamsulosin 0.4 mg capsule 0.4 mg PO QAM 03/03/23 06/15/23 History duloxetine 30 mg capsule,delayed 30 mg PO QAM 04/09/23 06/15/23 History release (Cymbalta) sodium chloride 0.65 % nasal spray 2 spray intranasal BID PRN 04/09/23 06/15/23 History aerosol (Saline Nasal) Congestion Past Med/Surg History Medical History CAD (coronary artery disease) s/p CABG x2 (2021) Aortic stenosis Echo 01/2022: Mild aortic stenosis Arthritis History of prostate cancer 2018, radiation with seeds implants Low iron Pulmonary embolism 2011- fell hiking in [place], blood clot developed postop surgery to repair fracture, blood thinners discontinued (was on for short period of time) Hypertension Hyperlipidemia History of COVID-19 Dx 03/03/23 ([place])- cough > resolved Sleep apnea No device Surgical History History of anesthesia reaction slow to wake up History of excision of pilonidal cyst History of carpal tunnel release R/L History of total knee replacement Right History of surgery on lower extremity Right fib fracture repair (+ hardware) H/O prostate biopsy History of colonoscopy History of cataract surgery R/L History of coronary artery bypass graft CABG x2 (2021) Family History Other No family history of adverse response to anesthesia Social History Smoking Status: Former smoker Tobacco Type: Cigarettes Second Hand Exposure: Yes (both parents); Do You Dip or Chew Tobacco: No; Hx Alcohol Use: Yes Alcohol type: wine Hx Substance Use: No Preferred Language: Trinidadian Communication Ability: Effective Vocational Rehabilitation Specialist Required: No Beliefs That Will Affect Care: None Current Living Situation: Spouse Feels Safe at Home: Yes Assistive Devices: Crutches, Glasses and Walker
--- NOTE | 2023-06-19 23:06 | History & Physical Report ---
Date of Service June 19, 2023 Assessment & Plan (1) Sacral osteomyelitis: Plan: Status post recent IR guided biopsy at [facility] no sepsis for now hx CAD status post CABG mild hypertension, stable hyperlipidemia, on statin Rx history of PE status post anticoagulation prediabetes, hemoglobin A1c of 5.7 last year BPH, prostate cancer status post radiation/androgen deprivation therapy chronic anemia, hemoglobin at baseline past tobacco abuse [facility] Follow pathology and CS results from [facility] once available ID consult Re: Sacral osteomyelitis (Patient previously evaluated by Dr. Rambo Deshpande of [facility] via teleconsult.) Defer antibiotic regimen to specialist DVT prophylaxis per Lovenox subcu Full code Text document was generated using [employer] voice recognition software. It may contain grammatical or spelling errors. Kindly contact undersigned for clarification of any documentation item in question. History of Present Illness Chief Complaint: Sent back from [facility] Primary Care Provider: Renzo Camacho MD Knee surgeryHistory obtained from patient and records. Medical history significant for CAD status post CABG, mild , hypertension, hyperlipidemia, history of PE status post anticoagulation, prediabetes, BPH, prostate cancer status post radiation/androgen deprivation therapy, chronic anemia (baseline hemoglobin 10), past tobacco abuse. Last confinement June 15-2023 for sacral osteomyelitis. Specialists recommended transfer to [facility] for IR percutaneous bone biopsy and cultures. Overnight stay at [facility] June 18-2023. Patient underwent IR guided bone biopsy of sacrococcygeal lesion. Small presacral hematoma noted postprocedure. Sample sent for CS and pathology. Patient discharged back [facility] as a direct admission. Patient denies headache, chest pain, SOB. Usual back pain without fever or chills. 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 Allergies Allergy/AdvReac Type Severity Reaction Status Date / Time Penicillins Allergy Mild Rash Verified 06/15/23 22:14 Sulfa (Sulfonamide Allergy Mild Rash Verified 06/15/23 22:14 Antibiotics) clindamycin AdvReac Mild upset Verified 06/15/23 22:14 stomach Home Medications Medication Instructions Recorded Confirmed Type ascorbic acid (vitamin C) 500 mg 500 mg PO QAM 03/03/23 06/20/23 History chewable tablet (Vitamin C) aspirin 81 mg tablet 81 mg PO QAM 03/03/23 06/20/23 History calcium phosphate 250 mg-vitamin 1 tab PO BID 03/03/23 06/20/23 History D3 10 mcg (400 unit) chewable tablet (Caltrate Gummy Bites) diclofenac sodium 75 mg 75 mg PO QAM 03/03/23 06/20/23 History tablet,delayed release ezetimibe 10 mg tablet (Zetia) 10 mg PO HS 03/03/23 06/20/23 History metoprolol tartrate 37.5 mg tablet 37.5 mg PO BID 03/03/23 06/20/23 History mirabegron 50 mg tablet,extended 50 mg PO QAM 03/03/23 06/20/23 History release 24 hr (Myrbetriq) rosuvastatin 40 mg tablet 40 mg PO HS 03/03/23 06/20/23 History tamsulosin 0.4 mg capsule 0.4 mg PO HS 03/03/23 06/20/23 History duloxetine 30 mg capsule,delayed 30 mg PO QAM 04/09/23 06/20/23 History release (Cymbalta) sodium chloride 0.65 % nasal spray 2 spray intranasal BID PRN 04/09/23 06/20/23 History aerosol (Saline Nasal) Congestion Past Med/Surg History Medical History CAD (coronary artery disease) s/p CABG x2 (2021) Aortic stenosis Echo 01/2022: Mild aortic stenosis Arthritis History of prostate cancer 2017, radiation with seeds implants Low iron Pulmonary embolism 2011- fell hiking in [place], blood clot developed postop surgery to repair fracture, blood thinners discontinued (was on for short period of time) Hypertension Hyperlipidemia History of COVID-19 Dx 03/03/23 ([place])- cough > resolved Sleep apnea No device Surgical History History of anesthesia reaction slow to wake up History of excision of pilonidal cyst History of carpal tunnel release R/L History of total knee replacement Right History of surgery on lower extremity Right fib fracture repair (+ hardware) H/O prostate biopsy History of colonoscopy History of cataract surgery R/L History of coronary artery bypass graft CABG x2 (2021) Family History Other No family history of adverse response to anesthesia Social History Smoking Status: Former smoker Tobacco Type: Cigarettes Smoking End Date: 1972; Second Hand Exposure: Yes (both parents); Do You Dip or Chew Tobacco: No; Hx Alcohol Use: Yes Alcohol type: wine Hx Substance Use: No Preferred Language: Luxembourger Communication Ability: Effective Butadiene Converter Helper Required: No Beliefs That Will Affect Care: None Current Living Situation: Spouse Feels Safe at Home: Yes Safety Concerns: Feels Safe At This Time Assistive Devices: Other Assistive Devices Comment: reading glasses Review of Systems Review of Systems: As per HPI, all other systems reviewed and negative Physical Exam Physical Exam: GENERAL: Comfortable, pleasant, obese, no respiratory distress SKIN: Pallor, warm HEENT: Partial alopecia, pale palpebral conjunctivae, no ptosis, dry buccal mucosa NECK : Supple, no tenderness CHEST : CTA, no tenderness HEART : RRR, systolic murmur ABDOMEN: Some distention, nontender BACK : Dressing over low back, low back tenderness EXTREMITIES : No LE swelling/tenderness, no other conspicuous deformities noted NEUROLOGIC : Coherent, no facial asymmetry, no other gross focality Results & Data Results & Data Laboratory Results [facility] labs 06/19/23 Hemoglobin 10.3, hematocrit 32, WBC 7, platelets 236 Sodium 138, potassium 3.7, chloride 101, CO2 26, BUN 24, creatinine 0.9, glucose 128
--- OUTSIDE RECORDS SUMMARY | 2023-06-20 00:39 | External Medical Summary | Summary of Care ---
Author Name Unknown Organization [facility] Address [address] [place] [address] Phone [phone] Care Team Providers Care Soap Drier Tender Name Role Phone Renzo Camacho MD Primary Care Provider + Reason for Visit * Reason Comments Acute The pt stated he has had severe lower back pain that radiates into his LE's at times. The pt stated this has been going on for approx 1 month. The pain is causing mobility issues and impacting his ADL's. The pt also stated he has been struggling with constipation. His last BM was today. Encounter Details Date Type Department Care Team (Late st Contact Info) Description 06/15/2023 3:40 PM EST Office Visit General Internal Medicine [facility] [address] [place] [address] Alysia Crabtree MD [address] [place] [address] Pilonidal sinus with abscess*; History of surgical removal of pilonidal cyst; Bilateral low back pain with sciatica, sciatica laterality unspecified, unspecified chronicity; Facet arthritis of lumbar region; S/P CABG (coronary artery bypass graft); History of prostate cancer; History of total right knee replacement (TKR); Coronary artery disease involving navajo coronary artery of navajo heart without angina pectoris Allergies Active Allergy Reactions Criticality Noted Date [...] as of this encounter (statuses as of 06/15/2023) Medications Medication Sig Dispensed Refills Start Date End Date Status Aspirin 81 MG Oral Tablet Chewable Take 1 Tablet by mouth in the morning. 0 2 Active Metoprolol Tartrate 37.5 MG Oral Tablet Take 37.5 mg by mouth in the morning and 37.5 mg before bedtime. 0 Active Diclofenac Sodium 75 MG Oral Tablet Delayed Release (Voltaren) Take 1 Tablet by mouth in the morning and 1 Tablet before bedtime. 90 Tablet 3 3 Active Additional Information Patient taking differently:75 mg OralDaily(AM), Reported on 04/16/2023 Ezetimibe 10 MG Oral Tablet (Zetia)Indications: Mixed hyperlipidemia Take 1 Tablet by mouth in the morning. 90 Tablet 3 3 Active Myrbetriq 50 MG Oral Tablet Extended Release 24 Hour (Mirabegron ER)Indications:Hist ory of prostate cancer Take 1 Tablet by mouth in the morning. 90 Tablet 3 3 Active DULoxetine HCl 30 MG Oral Capsule Delayed Release Particles (Cymbalta)Indicatio ns:Polyarthralgia Take 1 Capsule by mouth in the morning. Do not cut, crush or chew. 30 Capsule 5 3 Active Saline Nasal Swansea 0.65 % Nasal Solution (Oneida Nasal Swansea) Administer 2 Sprays into each nostril as needed for Congestion. for nasal dryness or congestion 0 3 Active Rosuvastatin Calcium 40 MG Oral Tablet (Crestor) Take 1 Tablet by mouth at bedtime. 90 Tablet 3 3 Active Tamsulosin HCl 0.4 MG Oral Capsule (Flomax) Take 1 Capsule by mouth in the morning. 90 Capsule 3 4 Active Additional Information Patient taking differently:0.4 mg OralHS, Reported on 06/15/2023 Cephalexin 500 MG Oral Capsule (Keflex) Take 1 Capsule by mouth every 6 hours. 28 Capsule 0 3 06/15/19 24 Discontinued documented as of this encounter (statuses as of 06/15/2023) Active Problems Problem Noted Date Diagnosed Date Prediabetes 04/07/2023 Mild aortic stenosis 04/07/2023 Overview: Last echo 2021 Coronary artery disease invo lving navajo coronary artery of navajo heart without angina pectoris 04/07/2023 S/P CABG (coronary artery bypass graft) 04/07/20 23 History of prostate cancer 04/07/2023 Mixed hyperlipidemia 04/07/2023 OMID (obstructive sleep apnea) 04/07/2023 History of pulmonary embolism 04/07/2023 Overview: S/p surgery 2011 Post-nasal drip 04/07/2023 documented as of this encounter (statuses as of 06/15/2023) Resolved Problems Problem Noted Date Diagnosed Date Resolved Date HTN, goal below 130/80 04/07/202304/07 documented as of this encounter (statuses as of 06/15/2023) Immunizations Name Administration Dates Next Due COVID-19 [...] Sign Reading Time Taken Comments Blood Pressure 124/70 06/15/2023 3:57 PM EST Pulse 63 06/15/2023 3:57 PM EST Temperature 36.6 C (97.8 F) 06/15/2023 3:57 PM ES T Respiratory Rate - - Oxygen Saturation 98% 06/15/2023 3:57 PM EST Inhaled Oxygen Concentration - - Weight 98 kg (216 lb) 06/15/2023 3:57 PM EST Height - - Body Mass Index 34.6 04/07/2023 10:16 AM EST documented in this encounter Progress Notes * Alysia Crabtree MD - 06/15/2023 4:29 PM EST SUBJECTIVE: Roe Kiser is a 78 year old male. Chief Complaint Patient presents with Acute The pt stated he has had severe lower back pain that radiates into his LE's at times. The pt statedthis has been going on for approx 1 month. The pain is causing mobility issues and impacting his ADL's. The pt also stated he has been struggling with constipation. His last BM was today. HPI: patient presents today accompanied by his for severe low back pain. He is laying down on the exam table on his left side. States he had pilonidal cyst surgery by Dr. Quarles 04/20/2023, had postoperative follow-up appointments 04/29/23, 05/13/2023 and 06/03/2023. Complains of low back pain which started end of April, pain is across the low back and it may radiate down right or the left leg, it is a constant pain which can be between 5 to 8/10, gets worse as the day progresses, he feels best when he wakes up in the morning. Denies any numbness of the extremities or weakness but having difficulty with ambulating, when he takes a step down he can get a shooting pain in his legs. No fever or chills. No nausea or vomiting. No saddle anesthesia, no incontinence of stool but admits to constipation, last bowel movement was this morning. History of urinary incontinence which is getting better due to prior history of prostate cancer andon medications for bph. Was on oxycodone for the 1st week after surgery and then was extended by another week, takes diclofenac 75 mg twice daily for generalized osteoarthritis pain despite CAD /CABGand last few days has also been taking Advil twice a day also without much relief. Prior imaging lumbar spine reviewed from [facility]- 08/2020-The vertebrae are normally aligned. No fracture or significant bony lesion is identified. There are scattered marginal osteophytes. Multilevel narrowing of the intervertebral disc spaces are noted at the visualized lower thoracic and upper lumbar spine as well as lower lumbar spine. Bilateral facet joint arthritis is noted. There is osteopenia. Calcification of the vasculature is noted. Patient Active Problem List Diagnosis Code Prediabetes R73.03 Mild aortic stenosis I35.0 Coronary artery disease involving navajo coronary artery of navajo heart without angina pectoris I25.10 S/P CABG (coronary artery bypass graft) Z95.1 History of prostate cancer Z85.46 Mixed hyperlipidemia E78.2 OMID (obstructive sleep apnea) G47.33 History of pulmonary embolism Z86.711 Post-nasal drip R09.82 Current Outpatient Medications Medication Sig Dispense Refill Aspirin 81 MG Oral Tablet Chewable Take 1 Tablet by mouth in the morning. Metoprolol Tartrate 37.5 MG Oral Tablet Take 37.5 mg by mouth in the morning and 37.5 mg before bedtime. Diclofenac Sodium 75 MG Oral Tablet Delayed Release (Voltaren) Take 1 Tablet by mouth in the morning and 1 Tablet before bedtime. (Patient taking differently: Take 1 Tablet by mouth in the morning.) 90 Tablet 3 Ezetimibe 10 MG Oral Tablet (Zetia) Take 1 Tablet by mouth in the morning. 90 Tablet 3 Myrbetriq 50 MG Oral Tablet Extended Release 24 Hour (Mirabegron ER) Take 1 Tablet by mouth in the morning. 90 Tablet 3 DULoxetine HCl 30 MG Oral Capsule Delayed Release Particles (Cymbalta) Take 1 Capsule by mouth in the morning. Do not cut, crush or chew. 30 Capsule 5 Saline Nasal Swansea 0.65 % Nasal Solution (Oneida Nasal Swansea) Administer 2 Sprays into each nostril as needed for Congestion. for nasal dryness or congestion Rosuvastatin Calcium 40 MG Oral Tablet (Crestor) Take 1 Tablet by mouth at bedtime. 90 Tablet 3 Tamsulosin HCl 0.4 MG Oral Capsule (Flomax) Take 1 Capsule by mouth in the morning. (Patient takingdifferently: Take 1 Capsule by mouth at bedtime.) 90 Capsule 3 No current facility-administered medications for this visit. Review of patient's allergies indicates: Allergen Reactions Penicillins Hives Pt developed hives, happened when he was 14 yrs Happened when he was 14 yrs Sulfamethoxazole-Trimethoprim Hives Pt developed hives, this happened when he was 14 years old This happened when he was 14 years old Clindamycin Nausea/vomiting STOMACH BURNING AND ESOPHAGUS BURNING Tablets only. Stomach/esophageal burning OBJECTIVE: BP 124/70 | Pulse 63 | Temp 36.6 C (97.8 F) | Wt 98 kg (216 lb) | SpO2 98% | BMI 34.60 kg/m |BSA 2.14 m PHYSICAL EXAM: General: alert, healthy, mild distress well developed Op-Mm moist Heart: regular rhythm and rate,No murmurs. Lungs: lungs clear to auscultation Extremities: no edema Abdomen: Soft, non-tender, normal bowel sounds, no masses or organomegaly Back-- at the site of pilonidal sinus surgery is a deep-seated pocket with muco- purulent discharge,surrounding erythema, induration for 1 inch with tenderness. Has great difficulty sitting down due to the pain. , able to get done gingerly to the floor but complains of severe pain shooting down the right leg. Neuro- DTR left 1+, right can not elicit, history of right knee replacement. Strength 4 x 5 bilateral lower extremities ASSESSMENT/PLAN: Pilonidal sinus with abscess (Primary) History of surgical removal of pilonidal cyst Bilateral low back pain with sciatica, sciatica laterality unspecified, unspecified chronicity Facet arthritis of lumbar region S/P CABG (coronary artery bypass graft) History of prostate cancer History of total right knee replacement (TKR) Coronary artery disease involving navajo coronary artery of navajo heart without angina pectoris - given the severity of his pain, recent pilonidal sinus cyst surgery with possible abscess would need further evaluation in the ER, IV antibiotics and pain control. Discussed with patient and he is agreeable to go to the ER for evaluation, will take him, nurse notified ER Follow-up: Return if symptoms worsen or fail to improve. | Check-out note: To Er (This note was completed using the dictation program Fluency Direct. As such, there may be misspellings, word substitutions, or other variations that should not change the essence of the clinical content of this encounter note. If there is need for further clarification, please direct questions to the provider listed above.) Patient and / caregiver verbalize understanding of above instructions and agrees with plan of care. Alysia Crabtree MD 06/15/2023 documented in this encounter Nursing Notes * Peña Schilling LPN - 06/15/2023 3:56 PM EST Chief Complaint Patient presents with Acute The pt stated he has had severe lower back pain that radiates into his LE's at times. The pt statedthis has been going on for approx 1 month. The pain is causing mobility issues and impacting his ADL's. The pt also stated he has been struggling with constipation. His last BM was today. documented in this encounter Plan of Treatment Upcoming Encounters Date Type Department Care Team (Late st Contact Info) Description 06/29/2023 11:15 AM EST Office Visit General Surgery, [facility] [address] [address] Lance Quarles MD [address] [address] 06/29/2023 4:00 PM EST Cardiac Studies Cardiac Studies, [facility] [address] [place] [address] 10/08/2023 1:00 PM EDT Office Visit General Internal Medicine [facility] [place] [address] [place] [address] Renzo Camacho MD 200 [facility] [place] [place] [address] 11/24/2023 8:00 AM EDT Office Visit Urology, [facility] [address] [facility] [address] [place] [address] Markus Raymond MD 27 [facility] [address] [address] 11/30/2023 2:00 PM EDT Office Visit Cardiology, [facility] 132 [facility] [place] [address] Carol Cruz CRNP 132 [facility] [place] [address] Health Maintenance Due Date Last Done Comments [...] as of this encounter Visit Diagnoses Diagnosis Pilonidal sinus with abscess- Primary Pilonidal cyst with abscess History of surgical removal of pilonidal cyst Bilateral low back pain with sciatica, sciatica laterality unspecified, unspecified chronicity Facet arthritis of lumbar region Lumbosacral spondylosis without myelopathy S/P CABG (coronary artery bypass graft) Postsurgical aortocoronary bypass status History of prostate cancer Personal history of malignant neoplasm of prostate History of total right knee replacement (TKR) Coronary artery disease involving navajo coronary artery of navajo heart without angina pectoris documented in this encounter Care Teams Soap Drier Tender Relationship Specialty Start Date End Date Renzo Camacho MD [address] [place] [id number] PCP - General Internal Medicine 04/24/23 documented as of this encounter"
[2023-06-20] MEDS ORDERED: PROMETHAZINE HCL 6.25 MG in SODIUM CHLORIDE 0.9% 50 ML IV PRN (03:41)
[2023-06-20] MEDS ORDERED: MoRPHine SULFATE 2 MG/ML CARP IV PRN (03:41)
[2023-06-20] MEDS ORDERED: ACETAMINOPHEN 325 MG TAB PO PRN (03:42)
[2023-06-20] MEDS ORDERED: SODIUM CHLORIDE 0.65% NA SOLN 45 ML (OCEAN) PRN (03:43)
[2023-06-20 06:51] LABS: Basophils # (auto) 0.02 K/uL (0.00-0.20); Basophils % (auto) 0.3 %; Eosinophils # (auto) 0.14 K/uL (0.00-0.50); Eosinophils % (auto) 2.3 %; Hematocrit (blood only) 32.1 % (42.0-52.0); Hemoglobin 10.4 g/dl (14.0-18.0); Immature Granulocytes # (auto) 0.03 K/uL (0.01-0.20); Immature Granulocytes % (auto) 0.5 %; Lymphocytes # (auto) 0.73 K/uL (1.20-3.40); Lymphocytes % (auto) 12.2 %; Mean Corpuscular Hemoglobin 28.6 pg (25.0-34.0); Mean Corpuscular Hgb Conc 32.4 g/dL (32.0-36.0); Mean Corpuscular Volume 88.2 fL (80.0-100.0); Mean Platelet Volume 8.3 fL (9.4-12.4); Monocytes # (auto) 0.77 K/uL (0.11-0.59); Monocytes % (auto) 12.9 %; Neutrophils % (auto) 71.8 %; Platelet Count 212 K/uL (130-400); RDW Coefficient of Variation 16.2 % (11.5-14.5); RDW Standard Deviation 52.3 fL (36.4-46.3); Red Blood Count 3.64 M/uL (4.70-6.10); White Blood Count 5.99 K/ul (4.8-10.8)
[2023-06-20 07:29] LABS: BUN Creatinine Ratio 25.3 (10-20); Calcium 8.4 mg/dl (8.6-10.3); Creatinine Clr Calc Pharmacy 84.5 ml/min; Est GFR (African American) 99.7 ml/min; Potassium 3.9 mmol/L (3.5-5.1)
--- NOTE | 2023-06-20 07:42 | Hospitalist Progress Note ---
Date of Service June 20, 2023 Assessment & Plan (1) Sacral osteomyelitis: (2) Pilonidal disease: Plan 78-year-old male with past medical history significant for prediabetes, hyperlipidemia, obstructive sleep apnea not using CPAP, mild aortic stenosis, CAD s/p CABG, history of prostate cancer, history of pulmonary embolism who presents with severe back pain and CAT scan showing possible sacral osteomyelitis. Patient had pilonidal cyst surgery removal on April 20, 2023. Was hospitalized at [facility] from 06/15/23 to 06/17/23 with concern for sacrococcygeal osteomyelitis before being transferred [place] [facility] for bone biopsy and cultures. Pt was transferred back to [facility] on 06/19 as he had the bone biopsy and cultures done, results pending. Sacrococcygeal osteomyelitis History of pilonidal surgery on April 20, 2023 Reported pain around the surgical site. Pelvis CT showed possible sacral osteomyelitis. Pelvic MRI shows absent/eroded posterior segment of S4 and S5. Abnormal signal intensity enhancement at sacrococcygeal junction; likely represents an osteomyelitis. Discussed with infectious disease; recommended surgical evaluation with bone biopsy to confirm osteomyelitis. Infectious disease recommended holding off on antibiotics till surgical evaluation is done and bone biopsies obtained. Discussed with surgery; Dr. Quarles who originally recommended orthopedics and orthopedic spine surgery evaluation- both services at [facility] stated that they had nothing to add. Case discussed once more with Dr Quarles who recommended the following: "...would refer to ortho and ID specialist at tertiary center to manage wound..." Per pt and , desirous of transfer to [facility] agreeable to transfer for IR percutaneous bone biopsy and culture in the setting of sacrococcygeal osteomyelitis. Pt transferred on 06/17 and transferred back on 06/19. Empiric antibiotics Vanc and Ertapenem started, ID consulted-appreciate further recs Continue pain control- pt found relief with oxycodone 5mg q6h Follow biopsy and Cx-[facility] notes they will be in touch, transfer center notes they will reach out as well Obstructive sleep apnea Not using CPAP CAD s/p CABG On beta-emily, Zetia, aspirin and statin, continue Hyperlipidemia On statin History of prostate cancer S/p brachytherapy and LHRH therapy On Flomax and gemtesa Follows with urology History of mild aortic stenosis Stable Hx of PE Postop in 2011 Completed treatment at that time DVT prophylaxis: Lovenox SQ Diet: HH CODE STATUS: Full code Dispo: Anticipate home once abx finalized, however PT/OT ordered Admission and Anticipated Discharge Date Admission Date: June 19, 2023 Subjective Pt seen in the AM. States that he felt fine. Otherwise denied acute concerns. Remains afebrile. Review of Systems Review of Systems: All systems reviewed & are unremarkable except as noted in Subjective Physical Exam Physical Exam: General: Alert, oriented. No acute distress Psych: Appropriate mood and affect Neuro: No gross deficits HEENT: NC/AT Chest: Nontender to palpation. CV: RRR Resp: Breath sounds clear bilaterally, no increased effort of breathing Abdomen: Soft, nontender, nondistended Extremities: No edema in lower extremities bilaterally. Results & Data Results & Data Vital Signs (Past 12 Hours) Vital Signs Temp Pulse Resp BP Pulse Ox O2 Del Method 06/19/23 23:47 37.0 C 84 16 131/81 95 Room Air 06/19/23 23:45 37.0 C 84 16 131/81 95 Room Air
[2023-06-20] MEDS: VIBEGRON 75 MG TAB PO SCH (07:53)
[2023-06-20] MEDS: DICLOFENAC SODIUM 75 MG TABCR PO SCH (07:53)
[2023-06-20] MEDS: METOPROLOL TARTRATE 25 MG TAB PO SCH (07:54)
[2023-06-20] MEDS: ASPIRIN 81 MG ECTAB PO SCH (07:54)
[2023-06-20] MEDS: ENOXAPARIN INJ 40 MG/0.4 ML SYR SQ SCH (07:54)
[2023-06-20] MEDS: DULoxetine HCL 30 MG CAP PO SCH (07:54)
[2023-06-20] MEDS ORDERED: VANCOMYCIN CONSULT ACTIVE PRN (09:19)
[2023-06-20] MEDS ORDERED: VANCOMYCIN HCL 1,500 MG in SODIUM CHLORIDE 0.9% 500 ML IV SCH (09:30)
[2023-06-20] MEDS: ERTAPENEM SODIUM 1,000 MG in SYRINGE 0 ML IV SCH (10:05)
[2023-06-20] MEDS: VANCOMYCIN HCL 2,250 MG in SODIUM CHLORIDE 0.9% 500 ML IV ONE (10:05)
--- NOTE | 2023-06-20 13:48 | Pharmacy Report ---
Pharmacy PK ABX Note - Date of Service June 20, 2023 - Assessment and Plan Assessment 78 year old M receiving vancomycin and ertapenem for treatment of sacral osteomyelitis. S/p IR guided biopsy @ [facility]. Received a vanc load on 06/15 and then a single 1500mg dose on 06/19 at ~1700 at [facility] prior to transfer back to [facility] (confirmed w/ pharmacist @ [place]). Was re-loaded with vanc this AM. ID consulted. Day #1 of antimicrobial therapy. Plan Vancomycin * Loading dose: 2250 mg IV x 1 * Maintenance dose: 1500 mg IV every 18 hours * Regimen is predicted to achieve target AUC/SELENE of 400-600 mg/L.hr * Will obtain a level early tomorrow to assess clearance given he has received a few sporadic doses of vanc at this point. Pharmacy will continue to follow and will adjust dose/frequency as necessary. Thank you. Pharmacy has transitioned to AUC monitoring for vancomycin. AUC/SELENE is the preferred PK/PD target and is associated with decreased risk of nephrotoxicity compared to traditional trough targets.
[2023-06-20] MEDS: ROSUVASTATIN CALCIUM 20 MG TAB PO SCH (20:13)
[2023-06-20] MEDS: oxyCODONE HCL IR 5 MG TAB (IMMEDIATE RELEASE) PO PRN (20:13)
[2023-06-20] MEDS: TAMSULOSIN HCL 0.4 MG CAP PO SCH (20:14)
[2023-06-20] MEDS: EZETIMIBE 10 MG TAB PO SCH (20:14)
[2023-06-20] MEDS: VANCOMYCIN HCL 1,500 MG in SODIUM CHLORIDE 0.9% 500 ML IV SCH (21:53)
[2023-06-21 07:39] LABS: Basophils # (auto) 0.03 K/uL (0.00-0.20); Basophils % (auto) 0.4 %; Eosinophils # (auto) 0.16 K/uL (0.00-0.50); Eosinophils % (auto) 2.3 %; Hematocrit (blood only) 33.7 % (42.0-52.0); Hemoglobin 10.7 g/dl (14.0-18.0); Immature Granulocytes # (auto) 0.04 K/uL (0.01-0.20); Immature Granulocytes % (auto) 0.6 %; Lymphocytes # (auto) 0.81 K/uL (1.20-3.40); Lymphocytes % (auto) 11.6 %; Mean Corpuscular Hemoglobin 28.2 pg (25.0-34.0); Mean Corpuscular Hgb Conc 31.8 g/dL (32.0-36.0); Mean Corpuscular Volume 88.7 fL (80.0-100.0); Mean Platelet Volume 8.5 fL (9.4-12.4); Monocytes # (auto) 0.71 K/uL (0.11-0.59); Monocytes % (auto) 10.2 %; Neutrophils # (auto) 5.21 K/uL (1.40-6.50); Neutrophils % (auto) 74.9 %; Platelet Count 241 K/uL (130-400); RDW Coefficient of Variation 16.4 % (11.5-14.5); RDW Standard Deviation 53.5 fL (36.4-46.3); White Blood Count 6.96 K/ul (4.8-10.8)
[2023-06-21 07:58] LABS: BUN Creatinine Ratio 25.4 (10-20); Calcium 8.9 mg/dl (8.6-10.3); Est GFR (African American) 104.2 ml/min; Est GFR (Non-African American) 89.9 ml/min; Magnesium 2.3 mg/dl (1.7-2.4); Phosphorus 2.8 mg/dl (2.5-4.9); Potassium 4.1 mmol/L (3.5-5.1)
--- NOTE | 2023-06-21 13:48 | Pharmacy Report ---
Pharmacy PK ABX Note - Date of Service June 21, 2023 - Assessment and Plan Assessment 06/21: Continues on vancomycin/ertapenem. Day #2 vanc. Renal function stable. No culture data. 06/20: 78 year old M receiving vancomycin and ertapenem for treatment of sacral osteomyelitis. S/p IR guided [place] [facility] Received a vanc load on 06/15 and then a single 1500mg dose on 06/19 at ~1700 at [facility] [place] to transfer back to [facility] (confirmed w/ pharmacist @ [place]). Was re-loaded with vanc this AM. ID consulted. Day #1 of antimicrobial therapy. Plan Vancomycin * Current regimen: vanc 1500mg IV q18h * Random level today, 13mcg/mL (~14h level). Predicted to achieve ssAUC 423mg/L.hr with 64% probability. * Optimize regiment to 1250mg IV q12h- predicted to achieve ssAUC 519mg/L.hr with a 95% probability and 10% risk of toxicity. * Repeat level around steady state Pharmacy will continue to follow and will adjust dose/frequency as necessary. Thank you. Pharmacy has transitioned to AUC monitoring for vancomycin. AUC/SELENE is the preferred PK/PD target and is associated with decreased risk of nephrotoxicity compared to traditional trough targets.
[2023-06-21] MEDS: VANCOMYCIN HCL 1,250 MG in SODIUM CHLORIDE 0.9% 250 ML IV SCH (14:50)
--- NOTE | 2023-06-21 15:21 | Hospitalist Progress Note ---
Date of Service June 21, 2023 Assessment & Plan (1) Sacral osteomyelitis: (2) Pilonidal disease: Plan 78-year-old male with past medical history significant for prediabetes, hyperlipidemia, obstructive sleep apnea not using CPAP, mild aortic stenosis, CAD s/p CABG, history of prostate cancer, history of pulmonary embolism who presents with severe back pain and CAT scan showing possible sacral osteomyelitis. Patient had pilonidal cyst surgery removal on April 20, 2023. Was hospitalized at [facility] from 06/15/23 to 06/17/23 with concern for sacrococcygeal osteomyelitis before being transferred to [facility] for bone biopsy and cultures. Pt was transferred back to [facility] on 06/19 as he had the bone biopsy and cultures done on 06/18, results currently pending. Sacrococcygeal osteomyelitis History of pilonidal surgery on April 20, 2023 Reported pain around the surgical site. Pelvis CT showed possible sacral osteomyelitis. Pelvic MRI shows absent/eroded posterior segment of S4 and S5. Abnormal signal intensity enhancement at sacrococcygeal junction; likely represents an osteomyelitis. Discussed with infectious disease; recommended surgical evaluation with bone biopsy to confirm osteomyelitis. Infectious disease recommended holding off on antibiotics till surgical evaluation is done and bone biopsies obtained. Discussed with surgery; Dr. Quarles who originally recommended orthopedics and orthopedic spine surgery evaluation- both services at [facility] stated that they had nothing to add. Case discussed once more with Dr Quarles who recommended the following: "...would refer to ortho and ID specialist at tertiary center to manage wound..." Per pt and , desirous of transfer to [facility]. [facility] agreeable to transfer for IR percutaneous bone biopsy and culture in the setting of sacrococcygeal osteomyelitis. Pt transferred to [facility] on 06/17 and transferred back on 06/19. Had the bone biopsy and cultures done on 06/18, noted sacral hematoma -received fax on 06/21 with prelim results of Cx which show no anaerobic or fungal growth. No bacterial growth after 3 days. -will continue to reach out for final report Continue empiric antibiotics Vanc and Ertapenem, ID consulted-appreciate further recs Continue pain control- pt found relief with oxycodone 5mg q6h Wound consult- appreciate recs Continue to follow biopsy and Cx results-[facility] notes they will be in touch, transfer center notes they will reach out as well Obstructive sleep apnea Not using CPAP CAD s/p CABG On beta-emily, Zetia, aspirin and statin, continue Hyperlipidemia On statin History of prostate cancer S/p brachytherapy and LHRH therapy On Flomax and gemtesa Follows with urology History of mild aortic stenosis Stable Hx of PE Postop in 2012 Completed treatment at that time DVT prophylaxis: Lovenox SQ Diet: HH CODE STATUS: Full code Dispo: Anticipate home once abx finalized, however PT/OT ordered Admission and Anticipated Discharge Date Admission Date: June 19, 2023 Subjective Pt seen in the AM. States that he felt fine. Feels like the antibiotics are working as he states he has not had pain for some time. Otherwise denied acute concerns. Remains afebrile. Review of Systems Review of Systems: All systems reviewed & are unremarkable except as noted in Subjective Physical Exam Physical Exam: General: Alert, oriented. No acute distress Skin: Noted open sacral wound at top of buttocks, draining Psych: Appropriate mood and affect Neuro: No gross deficits HEENT: NC/AT Chest: Nontender to palpation. CV: RRR Resp: Breath sounds clear bilaterally, no increased effort of breathing Abdomen: Soft, nontender, nondistended Extremities: No edema in lower extremities bilaterally. Results & Data Results & Data Vital Signs (Past 12 Hours) Vital Signs Temp Pulse Resp BP Pulse Ox O2 Del Method 06/21/23 08:13 36.4 C L 58 L 16 145/71 H 96 Room Air
[2023-06-22 06:26] LABS: Basophils # (auto) 0.04 K/uL (0.00-0.20); Basophils % (auto) 0.6 %; Eosinophils # (auto) 0.16 K/uL (0.00-0.50); Eosinophils % (auto) 2.4 %; Hematocrit (blood only) 31.3 % (42.0-52.0); Hemoglobin 10.4 g/dl (14.0-18.0); Immature Granulocytes # (auto) 0.03 K/uL (0.01-0.20); Immature Granulocytes % (auto) 0.4 %; Lymphocytes # (auto) 0.95 K/uL (1.20-3.40); Lymphocytes % (auto) 14.1 %; Mean Corpuscular Hemoglobin 29.1 pg (25.0-34.0); Mean Corpuscular Hgb Conc 33.2 g/dL (32.0-36.0); Mean Corpuscular Volume 87.4 fL (80.0-100.0); Mean Platelet Volume 8.8 fL (9.4-12.4); Monocytes # (auto) 0.72 K/uL (0.11-0.59); Monocytes % (auto) 10.7 %; Neutrophils # (auto) 4.85 K/uL (1.40-6.50); Neutrophils % (auto) 71.8 %; Platelet Count 230 K/uL (130-400); RDW Coefficient of Variation 16.3 % (11.5-14.5); RDW Standard Deviation 51.9 fL (36.4-46.3); Red Blood Count 3.58 M/uL (4.70-6.10); White Blood Count 6.75 K/ul (4.8-10.8)
[2023-06-22 06:48] LABS: BUN Creatinine Ratio 22.8 (10-20); Calcium 8.7 mg/dl (8.6-10.3); Creatinine Clr Calc Pharmacy 84.5 ml/min; Est GFR (African American) 99.7 ml/min
--- NOTE | 2023-06-22 13:29 | Infectious Disease Consult ---
Date of Service June 22, 2023 Telehealth Information I performed this visit using a real-time telehealth connection between my location and the patients location ([facility]). After connecting through interactive tele-video, patient was identified by name and date of and/or wristband check.Patient (or authorized healthcare physician representative) was informed that this was a telemedicine visit and it was being conducted confidentially over secure lines. My office door was closed and no one else was present in the room with me.Patient (or authorized healthcare physician representative) provided consent to proceed with the visit, expressed an understanding of privacy and security of the telemedicine visit, and gave permission to have a hospital physician representative in the room in order to assist with the visit and to conduct portions of the visit, as needed. I informed the patient (or authorized healthcare physician representative) that I reviewed their record and presented the opportunity for them to ask any questions regarding the visit today. The patient agreed to participate. Assessment & Plan (1) Sacral osteomyelitis: Plan - Recommend 6 weeks of IV antibiotic treatment starting from 06/21/2023. - Recommend Ertapenem 1g q24 IV and Vancomycin IV per pharmacy. - Recommend weekly CBC, CMP, and Vancomycin level. Recommend CRP every 2 weeks. - we will sign off, please schedule ID clinic appointment in 5-6 weeks, we will not monitor patient until pt scheduled for ID clinic appointment. All labs must be sent to ID at [facility] [place] or else we can not help coordinate care. please call with issues, concerns, or questions. History of Present Illness History of Present Illness Reason for Consult: sacrococcygeal osteomyelitis Pt is a 78 yo M with PMHx of CAD status post CABG, mild , hypertension, hyperlipidemia, history of PE status post anticoagulation, prediabetes, BPH, prostate cancer status post radiation/androgen deprivation therapy, chronic anemia (baseline hemoglobin 10), past tobacco abuse with recent admission to [facility] with OM and discharged to [facility] ([facility]) for Bone biopsy (NGTD at day 3) and represents to [facility] on 06/20/2023 as a transfer from [facility] for ID consult and continue management. Per notes and chart review, pt had an overnight stay at [facility] June 18-2023. Patient underwent IR guided bone biopsy of sacrococcygeal lesion. Small presacral hematoma noted postprocedure. Sample sent for CS and pathology. At [facility], pt started on Ertapenem and Vancomycin IV for continued treatment. Despite no growth on IR biopsy so far, pt has had symptomatic improvement since starting antibiotics. Imaging consistent with OM w/o any other clear explanation. ID consulted for evaluation and management. Allergies Allergy/AdvReac Type Severity Reaction Status Date / Time Penicillins Allergy Mild Rash Verified 06/15/23 22:14 Sulfa (Sulfonamide Allergy Mild Rash Verified 06/15/23 22:14 Antibiotics) clindamycin AdvReac Mild upset Verified 06/15/23 22:14 stomach Home Medications Medication Instructions Recorded Confirmed Type ascorbic acid (vitamin C) 500 mg 500 mg PO QAM 03/03/23 06/20/23 History chewable tablet (Vitamin C) aspirin 81 mg tablet 81 mg PO QAM 03/03/23 06/20/23 History calcium phosphate 250 mg-vitamin 1 tab PO BID 03/03/23 06/20/23 History D3 10 mcg (400 unit) chewable tablet (Caltrate Gummy Bites) diclofenac sodium 75 mg 75 mg PO QAM 03/03/23 06/20/23 History tablet,delayed release ezetimibe 10 mg tablet (Zetia) 10 mg PO HS 03/03/23 06/20/23 History metoprolol tartrate 37.5 mg tablet 37.5 mg PO BID 03/03/23 06/20/23 History mirabegron 50 mg tablet,extended 50 mg PO QAM 03/03/23 06/20/23 History release 24 hr (Myrbetriq) rosuvastatin 40 mg tablet 40 mg PO HS 03/03/23 06/20/23 History tamsulosin 0.4 mg capsule 0.4 mg PO HS 03/03/23 06/20/23 History duloxetine 30 mg capsule,delayed 30 mg PO QAM 04/09/23 06/20/23 History release (Cymbalta) sodium chloride 0.65 % nasal spray 2 spray intranasal BID PRN 04/09/23 06/20/23 History aerosol (Saline Nasal) Congestion Patient History Medical History CAD (coronary artery disease) s/p CABG x2 (2021) Aortic stenosis Echo 01/2022: Mild aortic stenosis Arthritis History of prostate cancer 2017, radiation with seeds implants Low iron Pulmonary embolism 2011- fell hiking in [place], blood clot developed postop surgery to repair fracture, blood thinners discontinued (was on for short period of time) Hypertension Hyperlipidemia History of COVID-19 Dx 03/03/23 ([place])- cough > resolved Sleep apnea No device Surgical History History of anesthesia reaction slow to wake up History of excision of pilonidal cyst History of carpal tunnel release R/L History of total knee replacement Right History of surgery on lower extremity Right fib fracture repair (+ hardware) H/O prostate biopsy History of colonoscopy History of cataract surgery R/L History of coronary artery bypass graft CABG x2 (2021) Family History Other No family history of adverse response to anesthesia Social History Smoking Status: Former smoker Tobacco Type: Cigarettes Second Hand Exposure: Yes (both parents); Do You Dip or Chew Tobacco: No; Hx Alcohol Use: Yes Alcohol type: wine Hx Substance Use: No Preferred Language: Iraqi Communication Ability: Effective Market Relationship Manager Required: No Beliefs That Will Affect Care: None Current Living Situation: Spouse Feels Safe at Home: Yes Assistive Devices: Walker Review of Systems Pt has improved back pain, all other ROS negative. Physical Exam N/A Results & Data Vital Signs (Past 12 Hours) Vital Signs Temp Pulse Resp BP Pulse Ox O2 Del Method 06/22/23 06:20 36.9 C 55 L 16 128/73 94 Room Air Laboratory Results 06/22/23 05:54 WBC 6.75 RBC 3.58 L Hgb 10.4 L Hct 31.3 L MCV 87.4 MCH 29.1 MCHC 33.2 RDW Std Deviation 51.9 H RDW Coeff of [place] 16.3 H Plt Count 230 MPV 8.8 L Immature Gran % (Auto) 0.4 Neut % (Auto) 71.8 Lymph % (Auto) 14.1 [place] % (Auto) 10.7 Eos % (Auto) 2.4 Baso % (Auto) 0.6 Neut # (Auto) 4.85 Lymph # (Auto) 0.95 L [place] # (Auto) 0.72 H Eos # (Auto) 0.16 Baso # (Auto) 0.04 Immature Gran # (Auto) 0.03 Sodium 138 Potassium 4.0 Chloride 105 Carbon Dioxide 28 Anion Gap 5 BUN 18 Creatinine 0.79 Est Cr Clr Drug Dosing 84.5 Est GFR ( Amer) 99.7 Est GFR (Non-Af Amer) 86.0 BUN/Creatinine Ratio 22.8 H Glucose 101 H Calcium 8.7 Diagnostic Findings MRI Pelvis on 06/16/2023 IMPRESSION: 1. The posterior elements at the S4 and S5 appear to be absent/eroded. There is also abnormal signal intensity enhancement at the sacrococcygeal junction. Therefore, these findings most likely represents an osteomyelitis. 2. Small fluid tract extending to this area of suspected osteomyelitis which may represent postoperative change, a small fistula, or the residual pilonidal cyst. 3. Edema and enhancement surrounding the sacrococcygeal junction suggestive of an underlying cellulitis. Medications Administered Home Medications Medication Instructions Recorded Confirmed Last Taken ascorbic acid (vitamin C) 500 mg 500 mg PO QAM 03/03/23 06/20/23 06/19/23 chewable tablet (Vitamin C) aspirin 81 mg tablet 81 mg PO QAM 03/03/23 06/20/23 06/19/23 calcium phosphate 250 mg-vitamin 1 tab PO BID 03/03/23 06/20/23 06/19/23 D3 10 mcg (400 unit) chewable tablet (Caltrate Gummy Bites) diclofenac sodium 75 mg 75 mg PO QAM 03/03/23 06/20/23 06/19/23 tablet,delayed release ezetimibe 10 mg tablet (Zetia) 10 mg PO HS 03/03/23 06/20/23 06/19/23 metoprolol tartrate 37.5 mg tablet 37.5 mg PO BID 03/03/23 06/20/23 06/19/23 mirabegron 50 mg tablet,extended 50 mg PO QAM 03/03/23 06/20/23 04/19/23 07:00 release 24 hr (Myrbetriq) rosuvastatin 40 mg tablet 40 mg PO HS 03/03/23 06/20/23 06/19/23 tamsulosin 0.4 mg capsule 0.4 mg PO HS 03/03/23 06/20/23 06/19/23 duloxetine 30 mg capsule,delayed 30 mg PO QAM 04/09/23 06/20/23 06/19/23 release (Cymbalta) sodium chloride 0.65 % nasal spray 2 spray intranasal BID PRN 04/09/23 06/20/23 04/19/23 23:00 aerosol (Saline Nasal) Congestion Active Medications Generic Name Dose Route Start Last Admin Trade Name Freq PRN Reason Stop Dose Admin Aspirin 81 mg 06/20/23 09:00 06/22/23 08:24 Aspirin 81 Mg Ectab PO 07/20/23 08:59 81 mg QAM HILDA Administration Diclofenac Sodium 75 mg 06/20/23 09:00 06/22/23 08:23 Diclofenac Sodium 75 Mg Tabcr PO 07/20/23 08:59 75 mg QAM HILDA Administration Duloxetine HCl 30 mg 06/20/23 09:00 06/22/23 08:24 Duloxetine Hcl 30 Mg Cap PO 07/20/23 08:59 30 mg QAM HILDA Administration Ezetimibe 10 mg 06/20/23 21:00 06/21/23 19:41 Ezetimibe 10 Mg Tab PO 07/20/23 20:59 10 mg HS HILDA Administration Enoxaparin Sodium 40 mg 06/20/23 09:00 06/22/23 08:27 Enoxaparin Inj 40 Mg/0.4 Ml Syr SQ 07/20/23 08:59 40 mg QAM HILDA Administration Ertapenem 1,000 mg/ Syringe 10 mls @ 2 mls/min 06/20/23 09:30 06/22/23 09:09 IV 08/01/23 09:29 2 mls/min Q24H HILDA Administration Vancomycin HCl 1,250 mg/ 275 mls @ 200 mls/hr 06/21/23 14:00 06/22/23 13:26 Sodium Chloride IV 08/02/23 13:59 200 mls/hr Q12H HILDA Administration Metoprolol Tartrate 37.5 mg 06/20/23 09:00 06/22/23 08:26 Metoprolol Tartrate 25 Mg Tab PO 07/20/23 08:59 37.5 mg BID HILDA Administration Oxycodone HCl 5 mg 06/20/23 02:35 06/21/23 20:43 Oxycodone Hcl Ir 5 Mg Tab (Immediate Release) PO 07/04/23 02:34 5 mg Q4H PRN Administration Pain Rosuvastatin Calcium 40 mg 06/20/23 21:00 06/21/23 19:41 Rosuvastatin Calcium 20 Mg Tab PO 07/20/23 20:59 40 mg HS HILDA Administration Tamsulosin HCl 0.4 mg 06/20/23 21:00 06/21/23 19:41 Tamsulosin Hcl 0.4 Mg Cap PO 07/20/23 20:59 0.4 mg HS HILDA Administration Vibegron 75 mg 06/20/23 09:00 06/22/23 08:24 Vibegron 75 Mg Tab PO 07/20/23 08:59 75 mg QAM HILDA Administration
--- NOTE | 2023-06-22 16:43 | Hospitalist Progress Note ---
Date of Service June 22, 2023 Assessment & Plan (1) Sacral osteomyelitis: Plan Pt is a 78-year-old male with past medical history significant for prediabetes, hyperlipidemia, obstructive sleep apnea not using CPAP, mild aortic stenosis, CAD s/p CABG, history of prostate cancer, history of pulmonary embolism who presents with severe back pain and CAT scan showing possible sacral osteomyelitis. Patient had pilonidal cyst surgery removal on April 20, 2023. Was hospitalized at [facility] from 06/15/23 to 06/17/23 with concern for sacrococcygeal osteomyelitis before being transferred to [facility] for bone biopsy and cultures. Pt was transferred back to [facility] on 06/19 as he had the bone biopsy and cultures done on 06/18, results currently pending. Sacrococcygeal osteomyelitis History of pilonidal surgery on April 20, 2023 Reported pain around the surgical site. Pelvis CT showed possible sacral osteomyelitis. Pelvic MRI shows absent/eroded posterior segment of S4 and S5. Abnormal signal intensity enhancement at sacrococcygeal junction; likely represents an osteomyelitis. Discussed with infectious disease; recommended surgical evaluation with bone biopsy to confirm osteomyelitis. Infectious disease recommended holding off on antibiotics till surgical evaluation is done and bone biopsies obtained. Discussed with surgery; Dr. Quarles who originally recommended orthopedics and orthopedic spine surgery evaluation- both services at [facility] stated that they had nothing to add. Case discussed once more with Dr Quarles who recommended the following: "...would refer to ortho and ID specialist at tertiary center to manage wound..." Per pt and , desirous of transfer to [facility]. [facility] agreeable to transfer for IR percutaneous bone biopsy and culture in the setting of sacrococcygeal osteomyelitis. Pt transferred to [facility] on 06/17 and transferred back on 06/19. Had the bone biopsy and cultures done on 06/18, noted sacral hematoma -received fax on 06/21 with prelim results of Cx which show no anaerobic or fungal growth. No bacterial growth after 3 days. -will continue to reach out for final report Continue empiric antibiotics Vanc and Ertapenem, ID consulted-appreciate further recs Continue pain control- pt found relief with oxycodone 5mg q6h Wound consult- appreciate recs Continue to follow biopsy and Cx results-[facility] notes they will be in touch, transfer center notes they will reach out as well 06/22- discussed with ID- Invanz and Bijal for 6 weeks from 06/21. Recommends waiting for cultures to finalize before discharge. Obstructive sleep apnea Not using CPAP CAD s/p CABG On beta-emily, Zetia, aspirin and statin, continue Hyperlipidemia On statin History of prostate cancer S/p brachytherapy and LHRH therapy On Flomax and gemtesa Follows with urology History of mild aortic stenosis Stable Hx of PE Postop in 2011 Completed treatment at that time DVT prophylaxis: Lovenox SQ Diet: HH CODE STATUS: Full code Dispo: Anticipate home once abx finalized, however PT/OT ordered Admission and Anticipated Discharge Date Admission Date: June 19, 2023 Subjective Pt seen in the AM. States that he felt fine. Denied acute concerns. Remains afebrile. Review of Systems Review of Systems: All systems reviewed & are unremarkable except as noted in Subjective Physical Exam Physical Exam: General: Alert, oriented. No acute distress Skin: Noted sacral wound at top of buttocks, draining Psych: Appropriate mood and affect Neuro: No gross deficits HEENT: NC/AT Chest: Nontender to palpation. CV: RRR Resp: Breath sounds clear bilaterally, no increased effort of breathing Abdomen: Soft, nontender, nondistended Extremities: No edema in lower extremities bilaterally. Results & Data Results & Data Vital Signs (Past 12 Hours) Vital Signs Temp Pulse Resp BP Pulse Ox O2 Del Method 06/22/23 14:07 36.7 C 52 L 16 117/66 94 Room Air 06/22/23 06:20 36.9 C 55 L 16 128/73 94 Room Air
[2023-06-23 06:29] LABS: Basophils # (auto) 0.03 K/uL (0.00-0.20); Basophils % (auto) 0.5 %; Eosinophils # (auto) 0.17 K/uL (0.00-0.50); Eosinophils % (auto) 2.7 %; Hematocrit (blood only) 32.3 % (42.0-52.0); Hemoglobin 10.6 g/dl (14.0-18.0); Immature Granulocytes # (auto) 0.03 K/uL (0.01-0.20); Immature Granulocytes % (auto) 0.5 %; Lymphocytes # (auto) 1.17 K/uL (1.20-3.40); Lymphocytes % (auto) 18.7 %; Mean Corpuscular Hemoglobin 28.8 pg (25.0-34.0); Mean Corpuscular Hgb Conc 32.8 g/dL (32.0-36.0); Mean Corpuscular Volume 87.8 fL (80.0-100.0); Mean Platelet Volume 8.7 fL (9.4-12.4); Monocytes # (auto) 0.68 K/uL (0.11-0.59); Monocytes % (auto) 10.9 %; Neutrophils # (auto) 4.18 K/uL (1.40-6.50); Neutrophils % (auto) 66.7 %; Platelet Count 237 K/uL (130-400); RDW Coefficient of Variation 16.6 % (11.5-14.5); RDW Standard Deviation 52.9 fL (36.4-46.3); Red Blood Count 3.68 M/uL (4.70-6.10); White Blood Count 6.26 K/ul (4.8-10.8)
[2023-06-23 06:50] LABS: BUN Creatinine Ratio 26.6 (10-20); Calcium 8.8 mg/dl (8.6-10.3); Creatinine Clr Calc Pharmacy 84.5 ml/min; Est GFR (African American) 99.7 ml/min; Magnesium 2.3 mg/dl (1.7-2.4); Phosphorus 3.5 mg/dl (2.5-4.9); Potassium 3.9 mmol/L (3.5-5.1)
--- NOTE | 2023-06-23 15:45 | Hospitalist Progress Note ---
Date of Service June 23, 2023 Assessment & Plan (1) Sacral osteomyelitis: Plan Pt is a 78-year-old male with past medical history significant for prediabetes, hyperlipidemia, obstructive sleep apnea not using CPAP, mild aortic stenosis, CAD s/p CABG, history of prostate cancer, history of pulmonary embolism who presents with severe back pain and CAT scan showing possible sacral osteomyelitis. Patient had pilonidal cyst surgery removal on April 20, 2023. Was hospitalized at [facility] from 06/15/23 to 06/17/23 with concern for sacrococcygeal osteomyelitis before being transferred to [facility] for bone biopsy and cultures. Pt was transferred back to [facility] on 06/19 as he had the bone biopsy and cultures done on 06/18, final results currently pending. Sacrococcygeal osteomyelitis History of pilonidal surgery on April 20, 2023 Reported pain around the surgical site. Pelvis CT showed possible sacral osteomyelitis. Pelvic MRI shows absent/eroded posterior segment of S4 and S5. Abnormal signal intensity enhancement at sacrococcygeal junction; likely represents an osteomyelitis. Discussed with infectious disease; recommended surgical evaluation with bone biopsy to confirm osteomyelitis. Infectious disease recommended holding off on antibiotics till surgical evaluation is done and bone biopsies obtained. Discussed with surgery; Dr. Quarles who originally recommended orthopedics and orthopedic spine surgery evaluation- both services at [facility] stated that they had nothing to add. Case discussed once more with Dr Quarles who recommended the following: "...would refer to ortho and ID specialist at tertiary center to manage woun d..." Per pt and , desirous of transfer to [facility]. [facility] agreeable to transfer for IR percutaneous bone biopsy and culture in the setting of sacrococcygeal osteomyelitis. Pt transferred to [facility] on 06/17 and transferred back on 06/19. Had the bone biopsy and cultures done on 06/18, noted sacral hematoma -received fax on 06/21 with prelim results of Cx which show no anaerobic or fungal growth. No bacterial growth after 3 days. -will continue to reach out for final report Continue empiric antibiotics Vanc and Ertapenem, ID consulted-appreciate further recs Continue pain control- pt found relief with oxycodone 5mg q6h Wound consult- appreciate recs Continue to follow biopsy and Cx results-[facility] notes they will be in touch, transfer center notes they will reach out as well 06/22- discussed with ID- David and Bijal for 6 weeks from 06/21. Recommends waiting for cultures to finalize before discharge. 06/23- transfer center assisting with obtaining final Cx and biopsy results from [facility], to be placed in physical chart on the floor. Follow. Wound Care consult placed once more, nursing advised to contact wound verbally as well-pt requesting further wound evaluation. Previous consult placed 06/21. Appreciate recs. Obstructive sleep apnea Not using CPAP CAD s/p CABG On beta-emily, Zetia, aspirin and statin, continue Hyperlipidemia On statin History of prostate cancer S/p brachytherapy and LHRH therapy On Flomax and gemtesa Follows with urology History of mild aortic stenosis Stable Hx of PE Postop in 2011 Completed treatment at that time DVT prophylaxis: Lovenox SQ Diet: HH CODE STATUS: Full code Dispo: Anticipate home once abx finalized, however PT/OT ordered Admission and Anticipated Discharge Date Admission Date: June 19, 2023 Subjective Pt seen in the AM. States that he felt fine. Denied acute concerns. States he has not yet been seen by wound care. Remains afebrile. Review of Systems Review of Systems: All systems reviewed & are unremarkable except as noted in Subjective Physical Exam Physical Exam: General: Alert, oriented. No acute distress Skin: Noted sacral wound at top of buttocks, draining, open Psych: Appropriate mood and affect Neuro: No gross deficits HEENT: NC/AT Chest: Nontender to palpation. CV: RRR Resp: Breath sounds clear bilaterally, no increased effort of breathing Abdomen: Soft, nontender, nondistended Extremities: No edema in lower extremities bilaterally. Results & Data Results & Data Vital Signs (Past 12 Hours) Vital Signs Temp Pulse Resp BP BP Pulse Ox O2 Del Method 06/23/23 15:39 36.7 C 66 18 119/67 94 Room Air 06/23/23 09:00 Room Air 06/23/23 07:46 36.6 C 56 L 18 101/62 94 Room Air
[2023-06-24 07:02] LABS: Magnesium 2.2 mg/dl (1.7-2.4)
[2023-06-24 07:07] LABS: Creatinine Clr Calc Pharmacy 91.5 ml/min; Est GFR (Non-African American) 88.8 ml/min; Phosphorus 3.1 mg/dl (2.5-4.9)
--- NOTE | 2023-06-24 10:52 | Pharmacy Report ---
Pharmacy PK ABX Note - Date of Service June 24, 2023 - Assessment and Plan Assessment 06/24: Vancomycin + ertapenem for sacral osteomyelitis. ID recs 6 weeks of antibiotic therapy from 06/21- awaiting final culture results. Renal function stable. 06/21: Continues on vancomycin/ertapenem. Day #2 vanc. Renal function stable. No culture data. 06/20: 78 year old M receiving vancomycin and ertapenem for treatment of sacral osteomyelitis. S/p IR guided [place] [facility]. Received a vanc load on 06/15 and then a single 1500mg dose on 06/19 at ~1700 at [facility] [place] to [facility] back to [facility] (confirmed w/ pharmacist @ [facility]). Was re-loaded with vanc this AM. ID consulted. Day #1 of antimicrobial therapy. Plan Vancomycin * Current regimen: vanc 1250mg IV q12h * Random level today, 16.5mcg/mL (~8h level). Predicted to achieve ssAUC 506mg/L.hr- therapeutic. * Continue vancomycin 1250mg IV q12h * Repeat level in ~ 48-72h. Pharmacy will continue to follow and will adjust dose/frequency as necessary. Thank you. Pharmacy has transitioned to AUC monitoring for vancomycin. AUC/SELENE is the preferred PK/PD target and is associated with decreased risk of nephrotoxicity compared to traditional trough targets.
--- NOTE | 2023-06-24 15:44 | Hospitalist Progress Note ---
Date of Service June 24, 2023 Assessment & Plan (1) Sacral osteomyelitis: Plan Pt is a 78-year-old male with past medical history significant for prediabetes, hyperlipidemia, obstructive sleep apnea not using CPAP, mild aortic stenosis, CAD s/p CABG, history of prostate cancer, history of pulmonary embolism who presents with severe back pain and CAT scan showing possible sacral osteomyelitis. Patient had pilonidal cyst surgery removal on April 20, 2023. Was hospitalized at [facility] from 06/15/23 to 06/17/23 with concern for sacrococcygeal osteomyelitis before being transferred [place] [facility] [place] bone biopsy and cultures. Pt was transferred back to [facility] on 06/19 as he had the bone biopsy and cultures done on 06/18, final results currently pending. Sacrococcygeal osteomyelitis History of pilonidal surgery on April 20, 2023 Reported pain around the surgical site. Pelvis CT showed possible sacral osteomyelitis. Pelvic MRI shows absent/eroded posterior segment of S4 and S5. Abnormal signal intensity enhancement at sacrococcygeal junction; likely represents an osteomyelitis. Discussed with infectious disease; recommended surgical evaluation with bone biopsy to confirm osteomyelitis. Infectious disease recommended holding off on antibiotics till surgical evaluation is done and bone biopsies obtained. Discussed with surgery; Dr. Quarles who originally recommended orthopedics and orthopedic spine surgery evaluation- both services at [facility] stated that they had nothing to add. Case discussed once more with Dr Quarles who recommended the following: "...would refer to ortho and ID specialist at tertiary center to manage wou nd..." Per pt and , desirous of transfer to [facility]. [facility] agreeable to transfer for IR percutaneous bone biopsy and culture in the setting of sacrococcygeal osteomyelitis. Pt transferred to [facility] on 06/17 and transferred back on 06/19. Had the bone biopsy and cultures done on 06/18, noted sacral hematoma -received fax on 06/21 with prelim results of Cx which show no anaerobic or fungal growth. No bacterial growth after 3 days. -will continue to reach out for final report Continue empiric antibiotics Vanc and Ertapenem, ID consulted-appreciate further recs Continue pain control- pt found relief with oxycodone 5mg q6h Wound consult- appreciate recs Continue to follow biopsy and Cx results-[facility] notes they will be in touch, transfer center notes they will reach out as well 06/22- discussed with ID- David and Bijal for 6 weeks from 06/21. Recommends waiting for cultures to finalize before discharge. 06/23- transfer center assisting with obtaining final Cx and biopsy results from [facility], to be placed in physical chart on the floor. Follow. Wound Care consult placed once more, nursing advised to contact wound verbally as well-pt requesting further wound evaluation. Previous consult placed 06/21. Appreciate recs. Obstructive sleep apnea Not using CPAP CAD s/p CABG On beta-emily, Zetia, aspirin and statin, continue Hyperlipidemia On statin History of prostate cancer S/p brachytherapy and LHRH therapy On Flomax and gemtesa Follows with urology History of mild aortic stenosis Stable Hx of PE Postop in 2011 Completed treatment at that time DVT prophylaxis: Lovenox SQ Diet: HH CODE STATUS: Full code Dispo: Anticipate home once abx finalized, however PT/OT ordered Admission and Anticipated Discharge Date Admission Date: June 19, 2023 Subjective Pt seen in follow up of sacrococcygeal osteomyelitis Sitting up in bed in [facility]. States since being on antibiotics pain is much improved. Overall feels well. no fever, chills, chest pain, shortness of breath. Remains afebrile. Review of Systems Review of Systems: All systems reviewed & are unremarkable except as noted in Subjective Physical Exam Physical Exam: General: Alert, oriented. No acute distress Skin: Noted sacral wound at top of buttocks, draining, open Psych: Appropriate mood and affect Neuro: No gross deficits HEENT: NC/AT Chest: Nontender to palpation. CV: RRR Resp: Breath sounds clear bilaterally, no increased effort of breathing Abdomen: Soft, nontender, nondistended Extremities: No edema in lower extremities bilaterally. Results & Data Results & Data Vital Signs (Past 12 Hours) Vital Signs Temp Pulse Resp BP Pulse Ox O2 Del Method 06/24/23 14:03 36.8 C 64 16 98/60 L 95 Room Air 06/24/23 08:49 72 06/24/23 07:07 36.6 C 59 L 16 165/77 H 98 Room Air Laboratory Results 06/24/23 06/24/23 Range/Units 10:13 05:38 Creatinine 0.73 (0.6-1.4) mg/dl Est Cr Clr Drug Dosing 91.5 ml/min Est GFR ( Amer) 103.0 ml/min Est GFR (Non-Af Amer) 88.8 ml/min Phosphorus 3.1 (2.5-4.9) mg/dl Magnesium 2.2 (1.7-2.4) mg/dl Random Vancomycin 16.5 (10-20) mcg/ml Medications Administered Current Inpatient Medications Acetaminophen (Acetaminophen 325 Mg Tab) 650 mg PO QID PRN PRN Reason: pain/fever Stop: 07/20/23 03:41 Aspirin (Aspirin 81 Mg Ectab) 81 mg PO [facility] Stop: 07/20/23 08:59 Last Admin: 06/24/23 08:50 Dose: 81 mg Diclofenac Sodium (Diclofenac Sodium 75 Mg Tabcr) 75 mg PO [facility] Stop: 07/20/23 08:59 Last Admin: 06/24/23 08:50 Dose: 75 mg Duloxetine HCl (Duloxetine Hcl 30 Mg Cap) 30 mg PO [facility] Stop: 07/20/23 08:59 Last Admin: 06/24/23 08:50 Dose: 30 mg Ezetimibe (Ezetimibe 10 Mg Tab) 10 mg PO HS [facility] Stop: 07/20/23 20:59 Last Admin: 06/23/23 21:36 Dose: 10 mg Enoxaparin Sodium (Enoxaparin Inj 40 Mg/0.4 Ml Syr) [facility] Stop: 07/20/23 08:59 Last Admin: 06/24/23 08:51 Dose: 40 mg Promethazine HCl 6.25 mg/ (Sodium Chloride) 50.25 mls @ 201 mls/hr IV Q6H PRN PRN Reason: Nausea And Vomiting Stop: 07/20/23 03:40 Ertapenem 1,000 mg/ Syringe 10 mls @ 2 mls/min IV Q24H [facility] Stop: 08/01/23 09:29 Last Admin: 06/24/23 08:52 Dose: 2 mls/min Vancomycin HCl 1,250 mg/ (Sodium Chloride) 275 mls @ 200 mls/hr IV Q12H [facility] Stop: 08/02/23 13:59 Last Admin: 06/24/23 14:22 Dose: 200 mls/hr Metoprolol Tartrate (Metoprolol Tartrate 25 Mg Tab) 37.5 mg PO BID [facility] Stop: 07/20/23 08:59 Last Admin: 06/24/23 08:51 Dose: 37.5 mg Miscellaneous Information (Vancomycin Consult Active) 1 each N/A UD PRN PRN Reason: Consult Stop: 07/20/23 09:18 Morphine Sulfate (Morphine Sulfate 2 Mg/Ml Carp) 2 mg IV Q3H PRN PRN Reason: Pain Stop: 07/04/23 03:40 Oxycodone HCl (Oxycodone Hcl Ir 5 Mg Tab (Immediate Release)) 5 mg PO Q4H PRN PRN Reason: Pain Stop: 07/04/23 02:34 Last Admin: 06/22/23 20:30 Dose: 5 mg Rosuvastatin Calcium (Rosuvastatin Calcium 20 Mg Tab) 40 mg PO HS [facility] Stop: 07/20/23 20:59 Last Admin: 06/23/23 21:35 Dose: 40 mg Sodium Chloride (Sodium Chloride 0.65% Na Soln 45 Ml ([place])) 2 sprays NA BID PRN PRN Reason: Congestion Stop: 07/20/23 03:42 Tamsulosin HCl (Tamsulosin Hcl 0.4 Mg Cap) 0.4 mg PO HS [facility] Stop: 07/20/23 20:59 Last Admin: 06/23/23 21:36 Dose: 0.4 mg Vibegron (Vibegron 75 Mg Tab) 75 mg PO [facility] Stop: 07/20/23 08:59 Last Admin: 06/24/23 08:51 Dose: 75 mg
[2023-06-25 07:53] LABS: BUN Creatinine Ratio 30.1 (10-20); Calcium 8.9 mg/dl (8.6-10.3); Creatinine Clr Calc Pharmacy 91.5 ml/min; Est GFR (Non-African American) 88.8 ml/min; Magnesium 2.1 mg/dl (1.7-2.4); Phosphorus 3.4 mg/dl (2.5-4.9)
--- NOTE | 2023-06-25 16:13 | Hospitalist Progress Note ---
Date of Service June 25, 2023 Assessment & Plan (1) Sacral osteomyelitis: Plan Pt is a 78-year-old male with past medical history significant for prediabetes, hyperlipidemia, obstructive sleep apnea not using CPAP, mild aortic stenosis, CAD s/p CABG, history of prostate cancer, history of pulmonary embolism who presents with severe back pain and CAT scan showing possible sacral osteomyelitis. Patient had pilonidal cyst surgery removal on April 20, 2023. Was hospitalized at [facility] from 06/15/23 to 06/17/23 with concern for sacrococcygeal osteomyelitis before being transferred to [facility] [place] biopsy and cultures. Pt was transferred back to [facility] on 06/19 as he had the bone biopsy and cultures done on 06/18, final results currently pending. Sacrococcygeal osteomyelitis History of pilonidal surgery on April 20, 2023 Reported pain around the surgical site. Pelvis CT showed possible sacral osteomyelitis. Pelvic MRI shows absent/eroded posterior segment of S4 and S5. Abnormal signal intensity enhancement at sacrococcygeal junction; likely represents an osteomyelitis. Discussed with infectious disease; recommended surgical evaluation with bone biopsy to confirm osteomyelitis. Infectious disease recommended holding off on antibiotics till surgical evaluation is done and bone biopsies obtained. Discussed with surgery; Dr. Quarles who originally recommended orthopedics and orthopedic spine surgery evaluation- both services at [facility] stated that they had nothing to add. Case discussed once more with Dr Quarles who recommended the following: "...would refer to ortho and ID specialist at tertiary center to manage wou nd..." Per pt and , desirous of transfer to [facility] [facility] agreeable to transfer for IR percutaneous bone biopsy and culture in the setting of sacrococcygeal osteomyelitis. Pt transferred to [facility] on 06/17 and transferred back on 06/19. Had the bone biopsy and cultures done on 06/18, noted sacral hematoma -received fax on 06/21 with prelim results of Cx which show no anaerobic or fungal growth. No bacterial growth after 3 days. -will continue to reach out for final report Continue empiric antibiotics Vanc and Ertapenem, ID consulted-appreciate further recs Continue pain control- pt found relief with oxycodone 5mg q6h Wound consult- appreciate recs Continue to follow biopsy and Cx results-[facility] notes they will be in touch, transfer center notes they will reach out as well 06/22- discussed with ID- David and Bijal for 6 weeks from 06/21. Recommends waiting for cultures to finalize before discharge. 06/23- transfer center assisting with obtaining final Cx and biopsy results from [facility], to be placed in physical chart on the floor. Follow. Wound Care consult placed once more, nursing advised to contact wound verbally as well-pt requesting further wound evaluation. Previous consult placed 06/21. Appreciate recs. Obstructive sleep apnea Not using CPAP CAD s/p CABG On beta-emily, Zetia, aspirin and statin, continue Hyperlipidemia On statin History of prostate cancer S/p brachytherapy and LHRH therapy On Flomax and gemtesa Follows with urology History of mild aortic stenosis Stable Hx of PE Postop in 2011 Completed treatment at that time DVT prophylaxis: Lovenox SQ Diet: HH CODE STATUS: Full code Dispo: Anticipate home once abx finalized, however PT/OT ordered Admission and Anticipated Discharge Date Admission Date: June 19, 2023 Subjective Pt seen in follow up of sacrococcygeal osteomyelitis Sitting up in bed in [facility]. States since being on antibiotics pain is much improved. Overall feels well. no fever, chills, chest pain, shortness of breath. Remains afebrile. Review of Systems Review of Systems: All systems reviewed & are unremarkable except as noted in Subjective Physical Exam Physical Exam: General: Alert, oriented. No acute distress Skin: Noted sacral wound at top of buttocks, draining, open Psych: Appropriate mood and affect Neuro: No gross deficits HEENT: NC/AT Chest: Nontender to palpation. CV: RRR Resp: Breath sounds clear bilaterally, no increased effort of breathing Abdomen: Soft, nontender, nondistended Extremities: No edema in lower extremities bilaterally. Results & Data Results & Data Vital Signs (Past 12 Hours) Vital Signs Temp Pulse Resp BP Pulse Ox O2 Del Method 06/25/23 14:35 36.6 C 51 L 17 103/64 94 Room Air 06/25/23 08:05 65 144/75 H 06/25/23 07:05 36.6 C 59 L 16 137/72 93 Room Air Laboratory Results 06/25/23 Range/Units 06:36 Sodium 139 (136-145) mmol/L Potassium 4.0 (3.5-5.1) mmol/L Chloride 105 (98-107) mmol/L Carbon Dioxide 28 (21-32) mmol/L Anion Gap 6 (3-11) BUN 22 (6-23) mg/dl Creatinine 0.73 (0.6-1.4) mg/dl Est Cr Clr Drug Dosing 91.5 ml/min Est GFR ( Amer) 103.0 ml/min Est GFR (Non-Af Amer) 88.8 ml/min BUN/Creatinine Ratio 30.1 H (10-20) Glucose 93 (70-99(Fasting)) mg/dl Calcium 8.9 (8.6-10.3) mg/dl Phosphorus 3.4 (2.5-4.9) mg/dl Magnesium 2.1 (1.7-2.4) mg/dl Medications Administered Current Inpatient Medications Acetaminophen (Acetaminophen 325 Mg Tab) 650 mg PO QID PRN PRN Reason: pain/fever Stop: 07/20/23 03:41 Aspirin (Aspirin 81 Mg Ectab) 81 mg PO [facility] Stop: 07/20/23 08:59 Last Admin: 06/25/23 08:06 Dose: 81 mg Diclofenac Sodium (Diclofenac Sodium 75 Mg Tabcr) 75 mg PO [facility] Stop: 07/20/23 08:59 Last Admin: 06/25/23 08:06 Dose: 75 mg Duloxetine HCl (Duloxetine Hcl 30 Mg Cap) 30 mg PO [facility] Stop: 07/20/23 08:59 Last Admin: 06/25/23 08:06 Dose: 30 mg Ezetimibe (Ezetimibe 10 Mg Tab) 10 mg PO [facility] Stop: 07/20/23 20:59 Last Admin: 06/24/23 21:20 Dose: 10 mg Enoxaparin Sodium (Enoxaparin Inj 40 Mg/0.4 Ml Syr) 40 mg SQ [facility] Stop: 07/20/23 08:59 Last Admin: 06/25/23 08:10 Dose: 40 mg Promethazine HCl 6.25 mg/ (Sodium Chloride) 50.25 mls @ 201 mls/hr IV Q6H PRN PRN Reason: Nausea And Vomiting Stop: 07/20/23 03:40 Ertapenem 1,000 mg/ Syringe 10 mls @ 2 mls/min IV Q24H [facility] Stop: 08/01/23 09:29 Last Admin: 06/25/23 09:33 Dose: 2 mls/min Vancomycin HCl 1,250 mg/ (Sodium Chloride) 275 mls @ 200 mls/hr IV Q12H [facility] Stop: 08/02/23 13:59 Last Infusion: 06/25/23 15:54 Dose: Infused Metoprolol Tartrate (Metoprolol Tartrate 25 Mg Tab) 37.5 mg PO BID [facility] Stop: 07/20/23 08:59 Last Admin: 06/25/23 08:08 Dose: 37.5 mg Miscellaneous Information (Vancomycin Consult Active) 1 each N/A UD PRN PRN Reason: Consult Stop: 07/20/23 09:18 Morphine Sulfate (Morphine Sulfate 2 Mg/Ml Carp) 2 mg IV Q3H PRN PRN Reason: Pain Stop: 07/04/23 03:40 Oxycodone HCl (Oxycodone Hcl Ir 5 Mg Tab (Immediate Release)) 5 mg PO Q4H PRN PRN Reason: Pain Stop: 07/04/23 02:34 Last Admin: 06/22/23 20:30 Dose: 5 mg Rosuvastatin Calcium (Rosuvastatin Calcium 20 Mg Tab) 40 mg PO HS [facility] Stop: 07/20/23 20:59 Last Admin: 06/24/23 21:20 Dose: 40 mg Sodium Chloride (Sodium Chloride 0.65% Na Soln 45 Ml ([place])) 2 sprays NA BID PRN PRN Reason: Congestion Stop: 07/20/23 03:42 Tamsulosin HCl (Tamsulosin Hcl 0.4 Mg Cap) 0.4 mg PO HS [facility] Stop: 07/20/23 20:59 Last Admin: 06/24/23 21:19 Dose: 0.4 mg Vibegron (Vibegron 75 Mg Tab) 75 mg PO QA [facility] Stop: 07/20/23 08:59 Last Admin: 06/25/23 08:07 Dose: 75 mg
[2023-06-26 08:53] LABS: Creatinine Clr Calc Pharmacy 91.5 ml/min; Est GFR (Non-African American) 88.8 ml/min
--- NOTE | 2023-06-26 12:50 | Hospitalist Progress Note ---
Date of Service June 26, 2023 Assessment & Plan (1) Sacral osteomyelitis: Plan Pt is a 78-year-old male with past medical history significant for prediabetes, hyperlipidemia, obstructive sleep apnea not using CPAP, mild aortic stenosis, CAD s/p CABG, history of prostate cancer, history of pulmonary embolism who presents with severe back pain and CAT scan showing possible sacral osteomyelitis. Patient had pilonidal cyst surgery removal on April 20, 2023. Was hospitalized at [facility] from 06/15/23 to 06/17/23 with concern for sacrococcygeal osteomyelitis before being transferred to [facility] for bone biopsy and cultures. Pt was transferred back to [facility] on 06/19 as he had the bone biopsy and cultures done on 06/18, final results currently pending. Sacrococcygeal osteomyelitis History of pilonidal surgery on April 20, 2023 Reported pain around the surgical site. Pelvis CT showed possible sacral osteomyelitis. Pelvic MRI shows absent/eroded posterior segment of S4 and S5. Abnormal signal intensity enhancement at sacrococcygeal junction; likely represents an osteomyelitis. Discussed with infectious disease; recommended surgical evaluation with bone biopsy to confirm osteomyelitis. Infectious disease recommended holding off on antibiotics till surgical evaluation is done and bone biopsies obtained. Discussed with surgery; Dr. Quarles who originally recommended orthopedics and orthopedic spine surgery evaluation- both services at [facility] stated that they had nothing to add. Case discussed once more with Dr Quarles who recommended the following: "...would refer to ortho and ID specialist at tertiary center to manage wou nd..." Per pt and , desirous of transfer to [facility]. [facility] agreeable to transfer for IR percutaneous bone biopsy and culture in the setting of sacrococcygeal osteomyelitis. Pt transferred to [facility] on 06/17 and transferred back on 06/19. Had the bone biopsy and cultures done on 06/18, noted sacral hematoma -received fax on 06/21 with prelim results of Cx which show no anaerobic or fungal growth. No bacterial growth after 3 days. -will continue to reach out for final report Continue empiric antibiotics Vanc and Ertapenem, ID consulted-appreciate further recs Continue pain control- pt found relief with oxycodone 5mg q6h Wound consult- appreciate recs Continue to follow biopsy and Cx results-[facility] notes they will be in touch, transfer center notes they will reach out as well 06/22- discussed with ID- Invanz and Vanc for 6 weeks from 06/21. Recommends waiting for cultures to finalize before discharge. 06/23- transfer center assisting with obtaining final Cx and biopsy results from [facility], to be placed in physical chart on the floor. Follow. 06/26 received final result from [facility] - no growth. Discussed w/ ID - cont. current regimen of Ertapenem and Vancomycin. PICC line to be placed Obstructive sleep apnea Not using CPAP CAD s/p CABG On beta-emily, Zetia, aspirin and statin, continue Hyperlipidemia On statin History of prostate cancer S/p brachytherapy and LHRH therapy On Flomax and gemtesa Follows with urology History of mild aortic stenosis Stable Hx of PE Postop in 2011 Completed treatment at that time DVT prophylaxis: Lovenox SQ Diet: HH CODE STATUS: Full code Dispo: Anticipate home once abx finalized, however PT/OT ordered Admission and Anticipated Discharge Date Admission Date: June 19, 2023 Subjective Pt seen in follow up of sacrococcygeal osteomyelitis Sitting up in bed in [facility]. States since being on antibiotics pain is much improved. Overall feels well. no fever, chills, chest pain, shortness of breath. Remains afebrile. Received final results from [place], no growth. Discussed with ID, recommend to continue original recommendations, ertapenem and vancomycin. Consult for PICC line signed. Review of Systems Review of Systems: All systems reviewed & are unremarkable except as noted in Subjective Physical Exam Physical Exam: General: Alert, oriented. No acute distress Skin: Noted sacral wound at top of buttocks, draining, open Psych: Appropriate mood and affect Neuro: No gross deficits HEENT: NC/AT Chest: Nontender to palpation. CV: RRR Resp: Breath sounds clear bilaterally, no increased effort of breathing Abdomen: Soft, nontender, nondistended Extremities: No edema in lower extremities bilaterally. Results & Data Results & Data Vital Signs (Past 12 Hours) Vital Signs Temp Pulse Resp BP Pulse Ox O2 Del Method 06/26/23 10:30 Room Air 06/26/23 08:01 36.6 C 61 16 147/73 H 94 Room Air Laboratory Results 06/26/23 Range/Units 07:48 Creatinine 0.73 (0.6-1.4) mg/dl Est Cr Clr Drug Dosing 91.5 ml/min Est GFR ( Amer) 103.0 ml/min Est GFR (Non-Af Amer) 88.8 ml/min Medications Administered Current Inpatient Medications Acetaminophen (Acetaminophen 325 Mg Tab) 650 mg PO QID PRN PRN Reason: pain/fever Stop: 07/20/23 03:41 Aspirin (Aspirin 81 Mg Ectab) 81 mg PO [facility] Stop: 07/20/23 08:59 Last Admin: 06/26/23 08:37 Dose: 81 mg Diclofenac Sodium (Diclofenac Sodium 75 Mg Tabcr) 75 mg PO [facility] Stop: 07/20/23 08:59 Last Admin: 06/26/23 08:37 Dose: 75 mg Duloxetine HCl (Duloxetine Hcl 30 Mg Cap) 30 mg PO [facility] Stop: 07/20/23 08:59 Last Admin: 06/26/23 08:37 Dose: 30 mg Ezetimibe (Ezetimibe 10 Mg Tab) 10 mg PO [facility] Stop: 07/20/23 20:59 Last Admin: 06/25/23 20:37 Dose: 10 mg Enoxaparin Sodium (Enoxaparin Inj 40 Mg/0.4 Ml Syr) 40 mg SQ [facility] Stop: 07/20/23 08:59 Last Admin: 06/26/23 08:37 Dose: 40 mg Promethazine HCl 6.25 mg/ (Sodium Chloride) 50.25 mls @ 201 mls/hr IV Q6H PRN PRN Reason: Nausea And Vomiting Stop: 07/20/23 03:40 Ertapenem 1,000 mg/ Syringe 10 mls @ 2 mls/min IV Q24H [facility] Stop: 08/01/23 09:29 Last Admin: 06/26/23 08:37 Dose: 2 mls/min Vancomycin HCl 1,250 mg/ (Sodium Chloride) 275 mls @ 200 mls/hr IV Q12H [facility] Stop: 08/02/23 13:59 Last Admin: 06/26/23 12:37 Dose: 200 mls/hr Metoprolol Tartrate (Metoprolol Tartrate 25 Mg Tab) 37.5 mg PO BID [facility] Stop: 07/20/23 08:59 Last Admin: 06/26/23 08:38 Dose: 37.5 mg Miscellaneous Information (Vancomycin Consult Active) 1 each N/A UD PRN PRN Reason: Consult Stop: 07/20/23 09:18 Morphine Sulfate (Morphine Sulfate 2 Mg/Ml Carp) 2 mg IV Q3H PRN PRN Reason: Pain Stop: 07/04/23 03:40 Oxycodone HCl (Oxycodone Hcl Ir 5 Mg Tab (Immediate Release)) 5 mg PO Q4H PRN PRN Reason: Pain Stop: 07/04/23 02:34 Last Admin: 06/22/23 20:30 Dose: 5 mg Rosuvastatin Calcium (Rosuvastatin Calcium 20 Mg Tab) 40 mg PO [facility] Stop: 07/20/23 20:59 Last Admin: 06/25/23 20:37 Dose: 40 mg Sodium Chloride (Sodium Chloride 0.65% Na Soln 45 Ml ([place])) 2 sprays NA BID PRN PRN Reason: Congestion Stop: 07/20/23 03:42 Tamsulosin HCl (Tamsulosin Hcl 0.4 Mg Cap) 0.4 mg PO [facility] Stop: 07/20/23 20:59 Last Admin: 06/25/23 20:36 Dose: 0.4 mg Vibegron (Vibegron 75 Mg Tab) 75 mg PO [facility] Stop: 07/20/23 08:59 Last Admin: 06/26/23 08:37 Dose: 75 mg
--- NOTE | 2023-06-26 14:59 | Discharge Summary ---
Date of Service June 26, 2023 Admission HPI Per Admitting Provider Knee surgery. History obtained from patient and records. Medical history significant for CAD status post CABG, mild , hypertension, hyperlipidemia, history of PE status post anticoagulation, prediabetes, BPH, pro state cancer status post radiation/androgen deprivation therapy, chronic anemia (baseline hemoglobin 10), past tobacco abuse. Last confinement June 152023 for sacral osteomyelitis. Specialists recommended transfer to [facility] for IR percutaneous bone biopsy and cultures. Overnight stay at [facility] June 182023. Patient underwent IR guided bone biopsy of sacrococcygeal lesion. Small presacral hematoma noted postprocedure. Sample sent for CS and pathology. Patient discharged back [facility] as a direct admission. Patient denies headache, chest pain, SOB. Usual back pain without fever or chills. 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 Admission Exam Per Admitting Provider GENERAL: Comfortable, pleasant, obese, no respiratory distress SKIN: Pallor, warm HEENT: Partial alopecia, pale palpebral conjunctivae, no ptosis, dry buccal mucosa NECK : Supple, no tenderness CHEST : CTA, no tenderness HEART : RRR, systolic murmur ABDOMEN: Some distention, nontender BACK : Dressing over low back, low back tenderness EXTREMITIES : No LE swelling/tenderness, no other conspicuous deformities noted NEUROLOGIC : Coherent, no facial asymmetry, no other gross focality Principal Diagnosis Sacral osteomyelitis Discharge Exam General: Alert, oriented. No acute distress Skin: Noted sacral wound at top of buttocks, draining, open Psych: Appropriate mood and affect Neuro: No gross deficits HEENT: NC/AT Chest: Nontender to palpation. CV: RRR Resp: Breath sounds clear bilaterally, no increased effort of breathing Abdomen: Soft, nontender, nondistended Extremities: No edema in lower extremities bilaterally. Discharge Data Allergies Allergy/AdvReac Type Severity Reaction Status Date / Time Penicillins Allergy Mild Rash Verified 06/15/23 22:14 Sulfa (Sulfonamide Allergy Mild Rash Verified 06/15/23 22:14 Antibiotics) clindamycin AdvReac Mild upset Verified 06/15/23 22:14 stomach Consultations 06/20/23 08:45 Consult Infectious Diseases Routine Hospital Course (1) Sacral osteomyelitis: Plan Pt is a 78-year-old male with past medical history significant for prediabetes, hyperlipidemia, obstructive sleep apnea not using CPAP, mild aortic stenosis, CAD s/p CABG, history of prostate cancer, history of pulmonary embolism who presents with severe back pain and CAT scan showing possible sacral osteomyelitis. Patient had pilonidal cyst surgery removal on April 20, 2023. Was hospitalized at [facility] from 06/15/23 to 06/17/23 with concern for sacrococcygeal osteomyelitis before being transferred to [facility] for bone biopsy and cultures. Pt was transferred back to [facility] on 06/19 as he had the bone biopsy and cultures done on 06/18, final results currently pending. Sacrococcygeal osteomyelitis History of pilonidal surgery on April 20, 2023 Reported pain around the surgical site. Pelvis CT showed possible sacral osteomyelitis. Pelvic MRI shows absent/eroded posterior segment of S4 and S5. Abnormal signal intensity enhancement at sacrococcygeal junction; likely represents an osteomyelitis. Discussed with infectious disease; recommended surgical evaluation with bone biopsy to confirm osteomyelitis. Infectious disease recommended holding off on antibiotics till surgical evaluation is done and bone biopsies obtained. Discussed with surgery; Dr. Quarles who originally recommended orthopedics and orthopedic spine surgery evaluation- both services at [facility] stated that they had nothing to add. Case discussed once more with Dr Quarles who recommended the following: "...would refer to ortho and ID specialist at tertiary center to manage wound..." Per pt and , desirous of transfer to [facility]. [facility] agreeable to transfer for IR percutaneous bone biopsy and culture in the setting of sacrococcygeal osteomyelitis. Pt transferred to [facility] on 06/17 and transferred back on 06/19. Had the bone biopsy and cultures done on 06/18, noted sacral hematoma -received fax on 06/21 with prelim results of Cx which show no anaerobic or fungal growth. No bacterial growth after 3 days. -will continue to reach out for final report Continue empiric antibiotics Vanc and Ertapenem, ID consulted-appreciate further recs Continue pain control- pt found relief with oxycodone 5mg q6h Wound consult- appreciate recs Continue to follow biopsy and Cx results-[facility] notes they will be in touch, transfer center notes they will reach out as well 06/22- discussed with ID- Invanz and Vanc for 6 weeks from 06/21. Recommends w aiting for cultures to finalize before discharge. 06/23- transfer center assisting with obtaining final Cx and biopsy results from [facility], to be placed in physical chart on the floor. Follow. 06/26 received final result from [facility] - no growth. Discussed w/ ID - cont. current regimen of Ertapenem and Vancomycin. PICC placed. Pt wishes to be discharged today. Obstructive sleep apnea Not using CPAP CAD s/p CABG On beta-emily, Zetia, aspirin and statin, continue Hyperlipidemia On statin History of prostate cancer S/p brachytherapy and LHRH therapy On Flomax and gemtesa Follows with urology History of mild aortic stenosis Stable Hx of PE Postop in 2011 Completed treatment at that time Total Time Total Time Spent Total Time Spent (In Minutes): 40 Discharge Plan Discharge Items Patient Disposition: Home - Home Health Services Reason For Visit: SACRAL OSTEOMYELITIS Discharge Diagnosis: Sacral osteomyelitis Activity: Per Instructions section Non-emergency contact: Primary Care Provider and Specialist Call non-emergency contact if: you have any medication questions and your symptoms worsen Follow-up/Referrals: Renzo Camacho MD [Primary Care Provider] - (Date & Time 07/01/2023 10:40 AM Provider Alysia Crabtree MD Department General Internal Medicine [facility] ) Fran De La Rosa II, DO [Physician] - (Date & Time 08/18/2023 11:00 AM Provider Fran De La Rosa II, DO Department Infectious Disease [facility] ) Diet: Heart Healthy Addtl Attending Provider Instructions: Follow up with your primary care physician and Infectious disease doctor. Continue IV antibiotics - Ertapenem and Vancomycin as prescribed. Pending Studies at Discharge: No Stand-Alone Forms: My What's in My Handbag, Smoking Cessation Medications and DC Order Prescriptions: Continued tamsulosin 0.4 mg Capsule 0.4 mg PO HS ascorbic acid (vitamin C) [Vitamin C] 500 mg Tablet,Chewable 500 mg PO QAM diclofenac sodium 75 mg Tablet,Delayed Release (Dr/Ec) 75 mg PO QAM aspirin 81 mg Tablet 81 mg PO QAM ezetimibe [Zetia] 10 mg Tablet 10 mg PO HS rosuvastatin 40 mg Tablet 40 mg PO HS Myrbetriq 50 mg Tablet Extended Release 24 Hr 50 mg PO QAM calcium phosphate-vitamin D3 [Caltrate Gummy Bites] 250 mg-10 mcg (400 unit) Tablet,Chewable 1 tab PO BID metoprolol tartrate 37.5 mg Tablet 37.5 mg PO BID Saline Nasal 0.65 % Aerosol,[place] 2 spray INTRANASAL BID PRN (Reason: Congestion) duloxetine [Cymbalta] 30 mg Capsule,Delayed Release(Dr/Ec) 30 mg PO QAM Discharge Orders: Discharge Order (Routine); Ordered 06/26/23 Ordered By: Bob Boyd Admission Data Admit Date/Time: 06/19/23 16:11 Attending Provider: Bob Boyd Admit Provider: Eryn Prescott Primary Care Provider: Renzo Camacho Other Providers: Rambo Deshpande I.; Chris Miranda; Ludin Galloway; Fran De La Rosa II; Viky Diamond; Partha Forbes; Roe Rashid; Brenna Wayne; Johnnie Ryan; Boaz Hernandez; [facility]; Eryn Prescott
[2023-06-27] MEDS ORDERED: VANCOMYCIN LEVEL SCH (13:00)
== END 2023-06-26 16:19 | disposition home health service (06) | DRG 541 ==
LOC: 3E 16:11 → SUATTDRO 16:11
DX: Z87.891 Personal history of nicotine dependence; I25.10 Atherosclerotic heart disease of native coronary artery without angina pectoris; Z79.82 Long term (current) use of aspirin; E78.5 Hyperlipidemia, unspecified; Z79.899 Other long term (current) drug therapy; M46.28 Osteomyelitis of vertebra, sacral and sacrococcygeal region; I35.0 Nonrheumatic aortic (valve) stenosis; Z95.1 Presence of aortocoronary bypass graft; Z88.0 Allergy status to penicillin; Z92.3 Personal history of irradiation; Z79.1 Long term (current) use of non-steroidal anti-inflammatories (NSAID); I10 Essential (primary) hypertension; R73.03 Prediabetes; Z85.46 Personal history of malignant neoplasm of prostate; Z88.2 Allergy status to sulfonamides; Z88.1 Allergy status to other antibiotic agents; Z86.711 Personal history of pulmonary embolism; G47.33 Obstructive sleep apnea (adult) (pediatric)